=== PATIENT | male | born 1950 | race Caucasian/White ===

== ENCOUNTER → 2016-10-01 | Outpatient (CLI) | payer MEDICARE ==
[2016-10-01 10:36] LABS: HEMATOCRIT 35.1 % (37.9-51.0); HEMOGLOBIN 11.6 g/dL (13.5-17.0); HGB HCT DIFFERENCE -0.3; MEAN CORPUSCULAR HEMOGLOBIN 28.2 pg (27.0-33.4); MEAN CORPUSCULAR VOLUME 86 fl (80-97); RED BLOOD COUNT 4.11 10^6/uL (4.35-5.55); RED CELL DISTRIBUTION WIDTH 13.5 % (11.5-14.0); WHITE BLOOD COUNT 8.3 10^3/uL (4.0-10.5)
[2016-10-01 10:44] LABS: APPEARANCE,URINE CLEAR; BILIRUBIN,URINE NEGATIVE (NEGATIVE); GLUCOSE, URINE NEGATIVE (NEGATIVE); KETONES,URINE NEGATIVE (NEGATIVE); LEUKOCYTE ESTERASE,URINE NEGATIVE (NEGATIVE); NITRITE,URINE NEGATIVE (NEGATIVE); PROTEIN,URINE NEGATIVE (NEGATIVE); URINE SPECIFIC GRAVITY 1.009; UROBILINOGEN,URINE NEGATIVE mg/dL (<2.0)
[2016-10-01 11:12] LABS: ANION GAP 14 (5-19); BLOOD UREA NITROGEN 39 mg/dL (7-20); CALCIUM 9.5 mg/dL (8.4-10.2); CARBON DIOXIDE 28 mmol/L (22-30); CHLORIDE 99 mmol/L (98-107); CREATININE RESULT 2.29 mg/dL (0.52-1.25); GLUCOSE 166 mg/dL (75-110); POTASSIUM 4.7 mmol/L (3.6-5.0); SODIUM 141.4 mmol/L (137-145)
== END ==
LOC: OD 09:59
PROVIDERS: ATTEND Internal Medicine Nephrology
DX: N18.3 Chronic kidney disease, stage 3 (moderate) (principal); E87.5 Hyperkalemia; I12.9 Hypertensive chronic kidney disease with stage 1 through stage 4 chronic kidney disease, or unspecified chronic kidney disease
CPT/HCPCS: 36415; 80048; 81001; 85027

== ENCOUNTER → 2017-03-03 | Outpatient (CLI) | payer MEDICARE ==
[2017-03-03 13:33] LABS: HEMATOCRIT 35.6 % (37.9-51.0); HEMOGLOBIN 12.1 g/dL (13.5-17.0); HGB HCT DIFFERENCE 0.7; MEAN CORPUSCULAR HEMOGLOBIN 29.4 pg (27.0-33.4); MEAN CORPUSCULAR HGB CONC 33.9 g/dL (32.0-36.0); MEAN CORPUSCULAR VOLUME 87 fl (80-97); RED CELL DISTRIBUTION WIDTH 13.4 % (11.5-14.0); WHITE BLOOD COUNT 7.7 10^3/uL (4.0-10.5)
[2017-03-03 13:55] LABS: ANION GAP 11 (5-19); BLOOD UREA NITROGEN 37 mg/dL (7-20); CALCIUM 9.8 mg/dL (8.4-10.2); CARBON DIOXIDE 31 mmol/L (22-30); CHLORIDE 98 mmol/L (98-107); CREATININE RESULT 2.31 mg/dL (0.52-1.25); GLUCOSE 248 mg/dL (75-110); POTASSIUM 4.5 mmol/L (3.6-5.0); SODIUM 140.2 mmol/L (137-145)
== END ==
LOC: OD 12:40
PROVIDERS: ATTEND Internal Medicine Nephrology
DX: I12.9 Hypertensive chronic kidney disease with stage 1 through stage 4 chronic kidney disease, or unspecified chronic kidney disease (principal); N18.3 Chronic kidney disease, stage 3 (moderate); E87.5 Hyperkalemia
CPT/HCPCS: 36415; 80048; 85027

== ENCOUNTER → 2017-04-21 | Outpatient (CLI) | payer MEDICARE ==
[2017-04-21 08:42] LABS: HEMATOCRIT 33.2 % (37.9-51.0); HEMOGLOBIN 11.1 g/dL (13.5-17.0); HGB HCT DIFFERENCE 0.1; MEAN CORPUSCULAR HEMOGLOBIN 29.1 pg (27.0-33.4); MEAN CORPUSCULAR HGB CONC 33.5 g/dL (32.0-36.0); MEAN CORPUSCULAR VOLUME 87 fl (80-97); RED BLOOD COUNT 3.81 10^6/uL (4.35-5.55); RED CELL DISTRIBUTION WIDTH 13.7 % (11.5-14.0)
[2017-04-21 08:44] LABS: APPEARANCE,URINE CLEAR; BILIRUBIN,URINE NEGATIVE (NEGATIVE); GLUCOSE, URINE 150 mg/dL (NEGATIVE); KETONES,URINE NEGATIVE (NEGATIVE); LEUKOCYTE ESTERASE,URINE NEGATIVE (NEGATIVE); NITRITE,URINE NEGATIVE (NEGATIVE); PROTEIN,URINE NEGATIVE (NEGATIVE); URINE SPECIFIC GRAVITY 1.009; UROBILINOGEN,URINE NEGATIVE mg/dL (<2.0)
[2017-04-21 09:09] LABS: ANION GAP 16 (5-19); BLOOD UREA NITROGEN 35 mg/dL (7-20); CALCIUM 9.2 mg/dL (8.4-10.2); CARBON DIOXIDE 29 mmol/L (22-30); CHLORIDE 97 mmol/L (98-107); CREATININE RESULT 2.48 mg/dL (0.52-1.25); GLUCOSE 318 mg/dL (75-110); POTASSIUM 4.4 mmol/L (3.6-5.0); SODIUM 142.4 mmol/L (137-145)
== END ==
LOC: OD 07:31
PROVIDERS: ATTEND Internal Medicine Nephrology
DX: I12.9 Hypertensive chronic kidney disease with stage 1 through stage 4 chronic kidney disease, or unspecified chronic kidney disease (principal); N18.3 Chronic kidney disease, stage 3 (moderate); E87.5 Hyperkalemia
CPT/HCPCS: 36415; 80048; 81001; 85027

== ENCOUNTER 2017-05-31 15:00 | Emergency (ER) | payer MEDICARE ==
--- NOTE | 2017-05-31 15:39 | ER Document Report ---
ED Fall - General Mode of Arrival: Medic Information source: Patient TRAVEL OUTSIDE OF THE [place] IN LAST 30 DAYS: No - HPI Patient complains to provider of: Left neck and back pain Occurred: Just prior to arrival Where: Outdoors Context: Slipped, Fell from standing Associated symptoms: Other - see notes above Location of injury/pain: Back, Neck Prehospital interventions: C-collar <ROSANA BEEBE - Last Filed: 05/31/17 23:20> <SOPHIA ROQUE - Last Filed: 06/01/17 00:21> - General Chief Complaint: Fall Stated Complaint: FALL/ NECK PAIN Time Seen by Provider: 05/31/17 15:07 Notes: 66 year old male with history of CAD, DE, and CVA (on Plavix and 81mg aspirin) presents to the ED via EMS complaining of left mid thoracic back and left neck pain after suffering a fall just prior to arrival. Patient was getting out of his car and had his foot on the curb. He went to turn his foot when he slipped and fell backwards. Patient hit his back, head, and neck on the ground and felt something 'crack' in his neck. Patient is on Plavix and 81mg Aspirin daily. (ROSANA BEEBE) - Related data Allergies/Adverse Reactions: Sulfa (Sulfonamide Antibiotics) Allergy (Intermediate, Verified 05/15/16 11:58) COLD SORES IN MOUTH codeine phosphate [From Tylenol-Codeine] Allergy (Verified 05/15/16 11:58) Hives zolpidem tartrate [From Ambien] Adverse Reaction (Verified 05/15/16 11:58) Hallucinations Past Medical History - General Information source: Patient - Social History Smoking Status: Unknown if Ever Smoked Family History: DM, Hypertension, Other - heart disease - Past Medical History Cardiac Medical History: Reports: Hx Coronary Artery Disease, Hx Heart Attack, Hx Hypercholesterolemia, Hx Hypertension Pulmonary Medical History: Reports: Hx Pneumonia - Aspiration pneumonia Denies: Hx Asthma, Hx Bronchitis, Hx COPD Neurological Medical History: Reports: Hx Cerebrovascular Accident - left sided weakness, Hx Seizures - last sz about 5 years ago,off medication about 1-2 years ago. Endocrine Medical History: Reports: Hx Diabetes Mellitus Type 2 Renal/ Medical History: Reports: Hx Renal Insufficiency GI Medical History: Reports: Hx Gastroesophageal Reflux Disease Musculoskeltal Medical History: Reports Hx Arthritis Psychiatric Medical History: Reports: Hx Depression Past Surgical History: Reports: Hx Cardiac Catheterization, Hx Cardiac Surgery - 2 bypass, Hx Coronary Artery Bypass Graft - x2, Hx Orthopedic Surgery - Back, bilat feet - Immunizations Hx Diphtheria, Pertussis, Tetanus Vaccination: Yes Hx Pneumococcal Vaccination: 03/02/14 <ROSANA BEEBE - Last Filed: 05/31/17 23:20> Review of Systems - Review of Systems Constitutional: No symptoms reported EENT: No symptoms reported Cardiovascular: No symptoms reported Respiratory: No symptoms reported Gastrointestinal: No symptoms reported Genitourinary: No symptoms reported Male Genitourinary: No symptoms reported Musculoskeletal: See HPI, Back pain - left mid thoracic, Neck pain - left Skin: No symptoms reported Hematologic/Lymphatic: No symptoms reported Neurological/Psychological: No symptoms reported -: Yes All other systems reviewed and negative <ROSANA BEEBE - Last Filed: 05/31/17 23:20> Physical Exam - General General appearance: Alert In distress: None - HEENT Head: Normocephalic, Atraumatic Eyes: Normal Extraocular movements intact: Yes Pupils: PERRL - Respiratory Respiratory status: No respiratory distress - Cardiovascular Rhythm: Regular - Abdominal Inspection: Normal - Back Back: Tender - C5-C7 paraspinal tenderness to palpation. L4-L5 tenderness to palpation.. No: Normal - Extremities General upper extremity: Normal inspection, Normal ROM General lower extremity: Normal inspection, Normal ROM - Neurological Neuro grossly intact: Yes Cognition: Normal Orientation: AAOx4 [place] Coma Scale Eye Opening: Spontaneous [place] Coma Scale Verbal: Oriented [place]y Coma Scale Motor: Obeys Commands Korey Coma Scale Total: 15 - Psychological Associated symptoms: Normal affect, Normal mood - Skin Skin Temperature: Warm Skin Moisture: Dry Skin Color: Normal <ROSANA BEEBE - Last Filed: 05/31/17 23:20> Course - Laboratory Result Diagrams: 05/31/17 16:00 05/31/17 16:00 <ROSANA BEEBE - Last Filed: 05/31/17 23:20> - Laboratory Result Diagrams: 05/31/17 16:00 05/31/17 16:00 - Diagnostic Test Radiology reviewed: Reports reviewed <SOPHIA ROQUE - Last Filed: 06/01/17 00:21> - Re-evaluation Re-evalutation: Patient is a 66-year-old male who comes in with a fall. Patient is on Plavix. No evidence for bleed on had or injury to neck or back. Patient is feeling better with medications. He is advised to return if he has any further symptoms such as headache, vomiting, confusion, dizziness, or any other concerns. Of note, creatinine is at baseline for this patient. (SOPHIA ROQUE) - Laboratory Laboratory results interpreted by me: 05/31/17 05/31/17 16:00 16:00 RBC 4.22 L Hgb 12.2 L Hct 36.5 L Seg Neutrophils % 82.0 H Lymphocytes % 8.0 L BUN 36 H Creatinine 2.24 H Est GFR ( Amer) 36 L Est GFR (Non-Af Amer) 29 L Glucose 169 H Discharge <ROSANA BEEBE - Last Filed: 05/31/17 23:20> <SOPHIA ROQUE - Last Filed: 06/01/17 00:21> - Discharge Clinical Impression: Closed head injury Qualifiers: Encounter type: initial encounter Qualified Code(s): S09.90XA - Unspecified injury of head, initial encounter Cervical strain Qualifiers: Encounter type: initial encounter Qualified Code(s): S16.1XXA - Strain of muscle, fascia and tendon at neck level, initial encounter Low back pain Qualifiers: Chronicity: acute Back pain laterality: unspecified Sciatica presence: without sciatica Qualified Code(s): M54.5 - Low back pain Condition: Stable Disposition: HOME, SELF-CARE Instructions: Concussion ([facility]), Head Injury Precautions ([facility]), Low Back Pain ( [facility]), Neck Injury (Cervical Strain) ([facility]) Prescriptions: Carisoprodol [Soma] 350 mg PO DAILYP PRN #10 tablet PRN Reason: Oxycodone HCl/Acetaminophen [Percocet 5-325 mg Tablet] 1 - 2 tab PO Q4H PRN #15 tablet PRN Reason: Referrals: NEVAEH CHAVEZ PA-C [Primary Care Provider] - Follow up in 3-5 days Scribe Attestation: 06/01/17 00:21 I personally performed the services described in the documentation, reviewed and edited the documentation which was dictated to the scribe in my presence, and it accurately records my words and actions. (SOPHIA ROQUE) Scribe Documentation - Scribe Written by Scribe:: Ford Bueno, 05/31/2017 1606 acting as scribe for :: Uriel <ROSANA BEEBE - Last Filed: 05/31/17 23:20>
[2017-05-31 16:13] LABS: ABSOLUTE EOSINOPHILS # (AUTO) 0.1 10^3/uL (0.0-0.6); ABSOLUTE LYMPHOCYTES (AUTO) 0.8 10^3/uL (0.5-4.7); ABSOLUTE MONOCYTES (AUTO) 0.8 10^3/uL (0.1-1.4); ABSOLUTE NEUT (AUTO) 7.8 10^3/uL (1.7-8.2); BASOPHILS % (AUTO) 0.4 % (0-2); EOSINOPHILS % (AUTO) 1.2 % (0-6); HEMATOCRIT 36.5 % (37.9-51.0); HEMOGLOBIN 12.2 g/dL (13.5-17.0); MEAN CORPUSCULAR HGB CONC 33.5 g/dL (32.0-36.0); MEAN CORPUSCULAR VOLUME 87 fl (80-97); MONOCYTES % (AUTO) 8.4 % (3-13); PLATELET COUNT 277 10^3/uL (150-450); RED BLOOD COUNT 4.22 10^6/uL (4.35-5.55); RED CELL DISTRIBUTION WIDTH 13.3 % (11.5-14.0); TOTAL CELLS COUNTED % (AUTO) 100 %; WHITE BLOOD COUNT 9.5 10^3/uL (4.0-10.5)
[2017-05-31 16:20] LABS: PROTHROMBIN TIME 12.8 SEC (11.4-15.4)
[2017-05-31 16:21] LABS: PARTIAL THROMBOPLASTIN TIME 32.8 SEC (23.5-35.8)
[2017-05-31 16:29] LABS: ANION GAP 13 (5-19); BLOOD UREA NITROGEN 36 mg/dL (7-20); CALCIUM 10.1 mg/dL (8.4-10.2); CARBON DIOXIDE 30 mmol/L (22-30); CHLORIDE 99 mmol/L (98-107); GLUCOSE 169 mg/dL (75-110); POTASSIUM 4.5 mmol/L (3.6-5.0); SODIUM 141.6 mmol/L (137-145)
--- NOTE | 2017-05-31 16:43 | RADIOLOGY REPORT (SQ) ---
EXAM DESCRIPTION: CT HEAD WITHOUT COMPLETED DATE/TIME: 05/31/2017 4:19 pm REASON FOR STUDY: fall, pain, hit head, on plavix COMPARISON: 05/21/2016 TECHNIQUE: Axial images acquired through the brain without intravenous contrast. Images reviewed wi th bone, brain and subdural windows. Images stored on PACS. All CT scanners at this facility use dose modulation, iterative reconstruction, and/or weight based d osing when appropriate to reduce radiation dose to as low as reasonably achievable (ALARA). [facility]: Dose Right [facility]: CareDose [facility]: Dose Right [facility]: Teradose 4D [facility]: [id number] RADIATION DOSE: CT Rad equipment meets quality standard of care and radiation dose reduction techniq ues were employed. CTDIvol: 64.6 mGy. DLP: 1163 mGy-cm. mGy. LIMITATIONS: None. FINDINGS: VENTRICLES: Mildly prominent CEREBRUM: No masses. No hemorrhage. No midline shift. Re- demonstration of chronic microvascular i schemic changes and bilateral basal ganglia lacunar infarcts. No evidence for acute infarction. CEREBELLUM: No masses. No hemorrhage. No alteration of density. No evidence for acute infarction. EXTRAAXIAL SPACES: Mild age-related involutional change. No fluid collections. No masses. ORBITS AND GLOBE: No intra- or extraconal masses. Normal contour of globe without masses. CALVARIUM: No fracture. PARANASAL SINUSES: No fluid or mucosal thickening. SOFT TISSUES: No mass or hematoma. OTHER: No other significant finding. IMPRESSION: Stable CT appearance of the brain, again demonstrating microvascular ischemic change and lacunar infarcts. No evidence of acute calvarial injury or intracranial hemorrhage. EVIDENCE OF ACUTE STROKE: NO. TECHNICAL DOCUMENTATION: JOB ID: [id number] Quality ID # [id number]: Final reports with documentation of one or more dose reduction techniques (e.g., Au tomated exposure control, adjustment of the mA and/or kV according to patient size, use of iterative reconstruction technique) 2010 [employer] All Rights Reserved
--- NOTE | 2017-05-31 16:45 | RADIOLOGY REPORT (SQ) ---
EXAM DESCRIPTION: CT CERVICAL SPINE WITHOUT COMPLETED DATE/TIME: 05/31/2017 4:19 pm REASON FOR STUDY: fall, pain COMPARISON: 07/08/2014 TECHNIQUE: Axial images acquired through the cervical spine without intravenous contrast. Images re viewed with lung, soft tissue and bone windows. Reconstructed coronal and sagittal MPR images review ed. Images stored on PACS. All CT scanners at this facility use dose modulation, iterative reconstruction, and/or weight based d osing when appropriate to reduce radiation dose to as low as reasonably achievable (ALARA). [facility]: Dose Right [facility]: CareDose [facility]: Dose Right [facility]: Teradose 4D [facility]: Smart [employer] RADIATION DOSE: CT Rad equipment meets quality standard of care and radiation dose reduction techniq ues were employed. CTDIvol: 20.3 mGy. DLP: 404 mGy-cm. mGy. LIMITATIONS: None. FINDINGS: ALIGNMENT: Anatomic. MINERALIZATION: Normal. VERTEBRAL BODIES: No fractures or dislocation. DISCS: Multilevel disc space narrowing with osteophytes. FACETS, LATERAL MASSES, POSTERIOR ELEMENTS: Facet arthropathy. No fractures. No dislocation. No ac [place] findings. HARDWARE: None in the spine. VISUALIZED RIBS: No fractures. LUNG APICES AND SOFT TISSUES: Re- demonstration of biapical pleural/ parenchymal scarring. OTHER: No other significant finding. IMPRESSION: CHRONIC DEGENERATIVE CHANGES. NO ACUTE FINDINGS. TECHNICAL DOCUMENTATION: JOB ID: [id number] Quality ID # [id number]: Final reports with documentation of one or more dose reduction techniques (e.g., Au tomated exposure control, adjustment of the mA and/or kV according to patient size, use of iterative reconstruction technique) 2010 [employer]- All Rights Reserved
--- NOTE | 2017-05-31 16:49 | RADIOLOGY REPORT (SQ) ---
EXAM DESCRIPTION: CT ABD/PELVIS NO ORAL OR IV COMPLETED DATE/TIME: 05/31/2017 4:19 pm REASON FOR STUDY: fall, L back , chest wall pain COMPARISON: None. TECHNIQUE: CT scan of the abdomen and pelvis performed without intravenous or oral contrast. Images reviewed with lung, soft tissue, and bone windows. Reconstructed coronal and sagittal MPR images revi ewed. All images stored on PACS. All CT scanners at this facility use dose modulation, iterative reconstruction, and/or weight based d osing when appropriate to reduce radiation dose to as low as reasonably achievable (ALARA). [facility]: Dose Right [facility]: CareDose [facility]: Dose Right [facility]: Teradose 4D [facility]: [employer] RADIATION DOSE: CT Rad equipment meets quality standard of care and radiation dose reduction techniq ues were employed. CTDIvol: 14.4 mGy. DLP: 779 mGy-cm.mGy. LIMITATIONS: None. FINDINGS: LOWER CHEST: Increased interstitial markings may represent scarring or fibrosis. NON-CONTRASTED LIVER, SPLEEN, ADRENALS: Evaluation limited by lack of IV contrast. No identified sign ificant masses. PANCREAS: No masses. No peripancreatic inflammatory changes. GALLBLADDER: No identified stones by CT criteria. No inflammatory changes to suggest cholecystitis. RIGHT KIDNEY AND URETER: No suspicious masses. Assessment limited by lack of IV contrast. No signif icant calcifications. No hydronephrosis or hydroureter. LEFT KIDNEY AND URETER: No suspicious masses. Assessment limited by lack of IV contrast. No signifi cant calcifications. No hydronephrosis or hydroureter. AORTA AND RETROPERITONEUM: No aneurysm. No retroperitoneal masses or adenopathy. BOWEL AND PERITONEAL CAVITY: No obvious masses or inflammatory changes. No free fluid. APPENDIX: Not visualized. PELVIS, BLADDER, AND ABDOMINAL WALL:No abnormal masses. No free fluid. Bladder normal. Fat containin g inguinal hernia on the right. BONES: Multilevel spondylotic change without fracture. Degenerative changes are seen of the hips. OTHER: No other significant finding. IMPRESSION: No evidence of acute intra-abdominal or osseous injury. COMMENT: Quality ID # 436: Final reports with documentation of one or more dose reduction techniques (e.g., Automated exposure control, adjustment of the mA and/or kV according to patient size, use of iterative reconstruction technique) TECHNICAL DOCUMENTATION: JOB ID: [id number]- All Rights Reserved
[2017-05-31] MEDS ORDERED: FENTANYL CITRATE INJ/PF 100 MCG/2 ML AMPUL IV ONE (16:50)
[2017-05-31] MEDS ORDERED: ONDANSETRON HCL INJ/PF 4 MG/2 ML SDV IV ONE (16:50)
--- NOTE | 2017-05-31 17:28 | RADIOLOGY REPORT (SQ) ---
EXAM DESCRIPTION: CHEST PA/LAT COMPLETED DATE/TIME: 05/31/2017 5:03 pm REASON FOR STUDY: fall, pain COMPARISON: 05/15/2016 EXAM PARAMETERS: NUMBER OF VIEWS: two views TECHNIQUE: Digital Frontal and Lateral radiographic views of the chest acquired. RADIATION DOSE: NA LIMITATIONS: none FINDINGS: LUNGS AND PLEURA: Re- demonstration of right apical opacity and pleural thickening, not si gnificantly changed from 05/15/2016 radiographs. No new focal consolidation. No pleural effusion. No pneumothorax. MEDIASTINUM AND HILAR STRUCTURES: No masses or contour abnormalities. HEART AND VASCULAR STRUCTURES: Heart normal size. No evidence for failure. BONES: No acute findings. HARDWARE: Sternotomy wires are present. OTHER: No other significant finding. IMPRESSION: Stable radiographic appearance of the chest, again demonstrating right apical pleural an d parenchymal changes. No acute findings. TECHNICAL DOCUMENTATION: JOB ID: [id number] [employer]- All Rights Reserved
[2017-05-31] MEDS ORDERED: HYDROCODONE/ACETAMINOPHEN 5-325 MG (6 TAB/ER DISP) PO PRN (17:57)
[2017-05-31] MEDS ORDERED: ONDANSETRON ODT 4 MG TAB (6 TAB/ER DISP) PO PRN (17:58)
== END 2017-05-31 18:40 | disposition home or self-care (01) ==
LOC: ER 15:00
DX: S16.1XXA Strain of muscle, fascia and tendon at neck level, initial encounter (principal); S09.90XA Unspecified injury of head, initial encounter; M54.2 Cervicalgia; M54.6 Pain in thoracic spine; M54.5 Low back pain; W10.1XXA Fall (on)(from) sidewalk curb, initial encounter; Y93.89 Activity, other specified; E11.9 Type 2 diabetes mellitus without complications; I10 Essential (primary) hypertension; I25.10 Atherosclerotic heart disease of native coronary artery without angina pectoris; I25.2 Old myocardial infarction; Z86.73 Personal history of transient ischemic attack (TIA), and cerebral infarction without residual deficits; Z79.02 Long term (current) use of antithrombotics/antiplatelets; Z79.82 Long term (current) use of aspirin; Z88.5 Allergy status to narcotic agent; Z88.2 Allergy status to sulfonamides; Z95.1 Presence of aortocoronary bypass graft
CPT/HCPCS: 99284; 96374; 96375; 36415; 85025; 85610; 85730; 80048; 71020; 70450; 72125; 74176; J3010; J2405

== ENCOUNTER 2017-06-17 22:20 | Inpatient (IN) | payer MEDICARE ==
[2017-06-18 00:09] LABS: ABSOLUTE BASOPHILS # (AUTO) 0.1 10^3/uL (0.0-0.2); ABSOLUTE EOSINOPHILS # (AUTO) 0.1 10^3/uL (0.0-0.6); ABSOLUTE MONOCYTES (AUTO) 1.2 10^3/uL (0.1-1.4); ABSOLUTE NEUT (AUTO) 12.2 10^3/uL (1.7-8.2); BASOPHILS % (AUTO) 0.4 % (0-2); EOSINOPHILS % (AUTO) 0.4 % (0-6); HEMATOCRIT 33.4 % (37.9-51.0); LYMPHOCYTES % (AUTO) 6.9 % (13-45); MEAN CORPUSCULAR HEMOGLOBIN 28.8 pg (27.0-33.4); MEAN CORPUSCULAR VOLUME 87 fl (80-97); PLATELET COUNT 253 10^3/uL (150-450); RED BLOOD COUNT 3.83 10^6/uL (4.35-5.55); RED CELL DISTRIBUTION WIDTH 13.2 % (11.5-14.0); SEGMENTED NEUTROPHILS % (AUTO) 84.3 % (42-78); TOTAL CELLS COUNTED % (AUTO) 100 %; WHITE BLOOD COUNT 14.4 10^3/uL (4.0-10.5)
[2017-06-18 01:28] LABS: ALANINE AMINOTRANSFERASE 19 U/L (21-72); ALBUMIN 4.6 g/dL (3.5-5.0); ALKALINE PHOSPHATASE 65 U/L (38-126); ANION GAP 14 (5-19); ASPARTATE AMINO TRANSFERASE 29 U/L (17-59); BILIRUBIN,DIRECT 0.4 mg/dL (0.0-0.4); BILIRUBIN,TOTAL 0.5 mg/dL (0.2-1.3); BLOOD UREA NITROGEN 46 mg/dL (7-20); CALCIUM 9.7 mg/dL (8.4-10.2); CARBON DIOXIDE 27 mmol/L (22-30); CHLORIDE 101 mmol/L (98-107); GLUCOSE 117 mg/dL (75-110); MAGNESIUM 2.1 mg/dL (1.6-2.3); POTASSIUM 3.8 mmol/L (3.6-5.0); SODIUM 142.1 mmol/L (137-145); TOTAL PROTEIN 7.8 g/dL (6.3-8.2)
[2017-06-18 01:33] LABS: ALCOHOL < 10 mg/dL (NONE DETECTED)
[2017-06-18 01:45] LABS: VENOUS BLOOD BASE EXCESS 2.6 mmol/L; VENOUS BLOOD PCO2 60.9 mmHg (35-63); VENOUS BLOOD PH 7.31 (7.30-7.42)
--- NOTE | 2017-06-18 01:54 | RADIOLOGY REPORT (SQ) ---
EXAM DESCRIPTION: CHEST SINGLE VIEW CLINICAL HISTORY: 66 years, Male, altered mental status, difficulty breathing COMPARISON: 05/31/2017. 05/15/2016, report only. NUMBER OF VIEWS: One LIMITATIONS: None. FINDINGS: Moderate lung volume, small stable patchy opacity of the right upper lobe, normal cardiac silhouette, median sternotomy. IMPRESSION: Stable patchiness of the right upper lobe. 2011 [facility] [employer]- All Rights Reserved
--- NOTE | 2017-06-18 03:06 | RADIOLOGY REPORT (SQ) ---
EXAM DESCRIPTION: CT HEAD WITHOUT CLINICAL HISTORY: 66 years Male, altered mental status on Plavix COMPARISON: 05/31/2017. TECHNIQUE: No contrast. This exam was performed according to our departmental dose-optimization program, which includes automated exposure control, adjustment of the mA and/or kV according to patient size and/or use of iterative reconstruction technique. FINDINGS: Mild white matter microangiopathy, stable lacunar infarcts in bilateral basal ganglia atherosclerosis, 1.2 cm left maxillary retention cyst/mucocele, small strandy mucus of the left sphenoid sinus, and otherwise unremarkable extra-axial structures. IMPRESSION: No acute findings.
[2017-06-18] MEDS ORDERED: AMPICILLIN SOD/SULBACTAM 3 GM VIAL IV ONE (03:18)
[2017-06-18] MEDS ORDERED: NORMAL SALINE 500 ML IV ONE (03:20)
[2017-06-18] MEDS ORDERED: IPRATROPIUM/ALBUTEROL 0.5-2.5 MG/3 ML AMPUL NEB PRN (03:35)
[2017-06-18] MEDS ORDERED: INSULIN LISPRO 100 UNIT/ML 3 ML VIAL SUBCUT PRN (03:35)
[2017-06-18] MEDS ORDERED: DEXTROSE 50%-WATER 25 GM/50 ML DISP.SYRIN IV PRN ×2 (03:35)
[2017-06-18] MEDS ORDERED: GLUCAGON,HUMAN RECOMB 1 MG INJ IM PRN (03:35)
[2017-06-18] MEDS ORDERED: DEXTROSE 40% GEL 15 GM TUBE PO PRN ×2 (03:35)
--- NOTE | 2017-06-18 03:38 | ER Document Report ---
ED General - General Chief Complaint: Altered Mental Status Stated Complaint: ALTERED MENTAL STATUS Time Seen by Provider: 06/18/17 00:43 TRAVEL OUTSIDE OF THE [place] IN LAST 30 DAYS: No - Related Data Allergies/Adverse Reactions: Sulfa (Sulfonamide Antibiotics) Allergy (Intermediate, Verified 05/15/16 11:58) COLD SORES IN MOUTH codeine phosphate [From Tylenol-Codeine] Allergy (Verified 05/15/16 11:58) Hives zolpidem tartrate [From Ambien] Adverse Reaction (Verified 05/15/16 11:58) Hallucinations Past Medical History - Social History Smoking Status: Unknown if Ever Smoked Frequency of alcohol use: None Drug Abuse: None Family History: DM, Hypertension, Other - heart disease - Past Medical History Cardiac Medical History: Reports: Hx Coronary Artery Disease, Hx Heart Attack, Hx Hypercholesterolemia, Hx Hypertension Pulmonary Medical History: Reports: Hx Pneumonia - Aspiration pneumonia Denies: Hx Asthma, Hx Bronchitis, Hx COPD Neurological Medical History: Reports: Hx Cerebrovascular Accident - left sided weakness, Hx Seizures - last sz about 5 years ago,off medication about 1-2 years ago. Endocrine Medical History: Reports: Hx Diabetes Mellitus Type 2 Renal/ Medical History: Reports: Hx Renal Insufficiency. Denies: Hx Peritoneal Dialysis GI Medical History: Reports: Hx Gastroesophageal Reflux Disease Musculoskeltal Medical History: Reports Hx Arthritis Psychiatric Medical History: Reports: Hx Depression Past Surgical History: Reports: Hx Cardiac Catheterization, Hx Cardiac Surgery - 2 bypass, Hx Coronary Artery Bypass Graft - x2, Hx Orthopedic Surgery - Back, bilat feet - Immunizations Hx Diphtheria, Pertussis, Tetanus Vaccination: Yes Hx Pneumococcal Vaccination: 03/02/14 Physical Exam - Vital signs Vitals: Temp Pulse Resp BP Pulse Ox 99.0 F 84 22 H 103/55 L 90 L 06/17/17 22:52 06/17/17 22:52 06/17/17 22:52 06/17/17 22:52 06/17/17 22:52 Course - Re-evaluation Re-evalutation: 06/18/17 03:37 Patient's workup shows stable patchy infiltrative appearance to the right side. I suspect he probably is developing pneumonia like he has in the past and that his clinical presentation is very similar to what he has had in the past with pneumonia and also he is hypoxic on room air and his lung silva sound consistent with pneumonia. I spoke with the hospitalist, Dr. العراقي, who agrees to admit the patient. Dictation of this chart was performed using voice recognition software; therefore, there may be some unintended grammatical errors. - Vital Signs Vital signs: Temp Pulse Resp BP Pulse Ox 99.0 F 84 11 L 115/69 96 06/17/17 22:52 06/17/17 22:52 06/18/17 01:01 06/18/17 01:00 06/18/17 01:01 - Laboratory Result Diagrams: 06/17/17 23:40 06/18/17 00:56 Laboratory results interpreted by me: 06/17/17 06/18/17 06/18/17 23:40 00:56 01:30 WBC 14.4 H RBC 3.83 L Hgb 11.0 L Hct 33.4 L Seg Neutrophils % 84.3 H Lymphocytes % 6.9 L Absolute Neutrophils 12.2 H BUN 46 H Creatinine 3.28 H Est GFR ( Amer) 23 L Est GFR (Non-Af Amer) 19 L Glucose 117 H ALT 19 L Ammonia < 8.7 L Discharge - Discharge Clinical Impression: Hypoxemia Pneumonia Qualifiers: Pneumonia type: due to unspecified organism Laterality: right Lung location: unspecified part of lung Qualified Code(s): J18.9 - Pneumonia, unspecified organism Condition: Serious Disposition: ADMITTED OBSERVATION Admitting Provider: Hospitalist Unit Admitted: Telemetry Referrals: NEVAEH CHAVEZ PA-C [Primary Care Provider] - Follow up as needed
[2017-06-18] MEDS ORDERED: HYDRALAZINE HCL INJ/PF 20 MG/1 ML SDV IV PRN (03:39)
[2017-06-18] MEDS ORDERED: ACETAMINOPHEN 650 MG SUPP.RECT PR PRN (03:40)
[2017-06-18] MEDS ORDERED: NALOXONE HCL INJ/PF 0.4 MG/1 ML SDV IV PRN (03:56)
[2017-06-18] MEDS ORDERED: FLUTICASONE NASAL SPRAY 50 MCG/SPRY 120 SPRAY/16 GM NASL ONE (04:00)
[2017-06-18] MEDS: NORMAL SALINE 1000 ML 1,000 ML IV SCH ×3 (04:26→17:56)
[2017-06-18] MEDS ORDERED: FLUTICASONE NASAL SPRAY 50 MCG/SPRY 120 SPRAY/16 GM ONE (04:39)
--- NOTE | 2017-06-18 04:56 | PDOC H&P ---
History of Present Illness Admission Date/PCP: NEVAEH CHAVEZ PA-C Patient complains of: Altered mental status History of Present Illness: MACI RODRIGUEZ SR is a 66 year old male with a past medical history of CVA with left-sided weakness, gait instability, CKD 3, opiate dependent chronic pain , anxiety depression, diabetes and esophageal cancer status post chemotherapy radiation 5 years ago with recurrent aspiration pneumonia, declining PEG tube placement. Patient is somnolent but arousable and uncooperative with history and exam, he is otherwise in no acute distress. Patient is unable or unwilling to provide history and is obtained by the record. Patient has several presentations with altered mental status in the setting of aspiration and polypharmacy. In the emergency room is found to have leukocytosis, a right upper lobe infiltrate consistent with previous image, acute on chronic renal failure and mental status described. He is referred to the hospitalist for observation. Past Medical History Cardiac Medical History: Reports: Coronary Artery Disease, Myocardial Infarction , Hyperlipidema, Hypertension Pulmonary Medical History: Reports: Pneumonia - Aspiration pneumonia Denies: Asthma, Bronchitis, Chronic Obstructive Pulmonary Disease (COPD) Neurological Medical History: Reports: Seizures - last sz about 5 years ago,off medication about 1-2 years ago. Endocrine Medical History: Reports: Diabetes Mellitus Type 2 GI Medical History: Reports: Gastroesophageal Reflux Disease Musculoskeltal Medical History: Reports: Arthritis Psychiatric Medical History: Reports: Depression, General Anxiety Disorder Hematology: Reports: Anemia Past Surgical History Past Surgical History: Reports: Cardiac Catheterization, Coronary Artery Bypass Graft - x2, Orthopedic Surgery - Back, bilat feet Social History Information Source: [facility] Records Lives with: Family Smoking Status: Unknown if Ever Smoked Frequency of Alcohol Use: Occasional Hx Recreational Drug Use: No Drugs: None Hx Prescription Drug Abuse: No - Advance Directive Resuscitation Status: Do Not Resuscitate Family History Family History: DM, Hypertension, Other - heart disease Parental Family History Reviewed: Yes Children Family History Reviewed: Yes Sibling(s) Family History Reviewed.: Yes Medication/Allergy Home Medications: Buspirone HCl 30 mg PO TID 11/22/15 Clomiphene Citrate [Serophene 50 mg Tablet] 25 mg PO DAILY 11/22/15 Furosemide 20 mg PO QAM 11/22/15 Gabapentin 600 mg PO QID 11/22/15 Pantoprazole Sodium 40 mg PO DAILY 11/22/15 Pravastatin Sodium 40 mg PO QHS 11/22/15 Sildenafil Citrate [Viagra] 50 mg PO DAILY PRN 11/22/15 Vitamin B Complex [B Complex] 1 each PO DAILY 11/22/15 Canagliflozin [Invokana] 1 tab PO DAILY 02/10/16 Citalopram Hydrobromide [Celexa 10 mg Tablet] 1 tab PO DAILY 02/10/16 Clopidogrel Bisulfate [Plavix 75 mg Tablet] 1 tab PO DAILY 02/10/16 Cyclobenzaprine HCl [Flexeril 10 mg Tablet] 1 tab PO TID PRN 02/10/16 Diphenoxylate HCl/Atropine [Lomotil 2.5-0.025 mg Tablet] 1 tab PO DAILY PRN 03/17 Glyburide [Diabeta 2.5 mg Tablet] 2 tab PO DAILY 02/10/16 Metoprolol Succinate 1 tab PO DAILY 02/10/16 Oxycodone HCl [Oxycontin] 1 tab PO BID 02/10/16 Tamsulosin HCl [Flomax 0.4 mg Cap.sr] 0.4 mg PO BID 02/10/16 Aspirin [Aspirin EC] 81 mg PO DAILY 02/11/16 Ferrous Sulfate 325 mg PO DAILY 02/11/16 Cefuroxime Axetil [Ceftin 500 mg Tablet] 500 mg PO BID #10 tablet 02/15/16 Carisoprodol [Soma] 350 mg PO DAILYP PRN #10 tablet 05/31/17 Oxycodone HCl/Acetaminophen [Percocet 5-325 mg Tablet] 1 - 2 tab PO Q4H PRN #15 tablet 05/31/17 Allergies/Adverse Reactions: Sulfa (Sulfonamide Antibiotics) Allergy (Intermediate, Verified 05/15/16 11:58) COLD SORES IN MOUTH codeine phosphate [From Tylenol-Codeine] Allergy (Verified 05/15/16 11:58) Hives zolpidem tartrate [From Ambien] Adverse Reaction (Verified 05/15/16 11:58) Hallucinations Review of Systems ROS unobtainable: Due to mental status Physical Exam Vital Signs: Temp Pulse Resp BP Pulse Ox 97.5 F 84 10 L 112/75 97 06/18/17 04:00 06/17/17 22:52 06/18/17 04:01 06/18/17 04:01 06/18/17 04:00 Intake & Output 06/16/17 06/17/17 06/18/17 11:59 11:59 11:59 Weight 75.6 kg General appearance: PRESENT: no acute distress, well-developed, well-nourished Head exam: PRESENT: atraumatic, normocephalic Eye exam: PRESENT: conjunctiva pink, EOMI, PERRLA. ABSENT: scleral icterus Ear exam: PRESENT: normal external ear exam Mouth exam: PRESENT: moist, tongue midline Neck exam: ABSENT: carotid bruit, JVD, lymphadenopathy, thyromegaly Respiratory exam: PRESENT: clear to auscultation bette, crackles. ABSENT: accessory muscle use, decreased breath sounds, prolonged expiratory phas, rales , retraction, rhonchi, unlabored, wheezes Cardiovascular exam: PRESENT: RRR. ABSENT: diastolic murmur, rubs, systolic murmur Pulses: PRESENT: normal dorsalis pedis pul Vascular exam: PRESENT: normal capillary refill GI/Abdominal exam: PRESENT: normal bowel sounds, soft. ABSENT: distended, guarding, mass, organolmegaly, rebound, tenderness Rectal exam: PRESENT: deferred Extremities exam: PRESENT: full ROM. ABSENT: calf tenderness, clubbing, pedal edema Neurological exam: PRESENT: alert, awake, oriented to person, oriented to place , oriented to time, oriented to situation, CN II-XII grossly intact. ABSENT: motor sensory deficit Psychiatric exam: PRESENT: appropriate affect, normal mood. ABSENT: homicidal ideation, suicidal ideation Skin exam: PRESENT: dry, intact, warm. ABSENT: cyanosis, rash Results Laboratory Results: 06/17/17 23:40 06/18/17 00:56 06/17/17 06/17/17 06/18/17 23:40 23:40 00:56 WBC 14.4 H RBC 3.83 L Hgb 11.0 L Hct 33.4 L MCV 87 MCH 28.8 MCHC 33.0 RDW 13.2 Plt Count 253 Seg Neutrophils % 84.3 H Lymphocytes % 6.9 L Monocytes % 8.0 Eosinophils % 0.4 Basophils % 0.4 Absolute Neutrophils 12.2 H Absolute Lymphocytes 1.0 Absolute Monocytes 1.2 Absolute Eosinophils 0.1 Absolute Basophils 0.1 VBG pH VBG pCO2 VBG HCO3 VBG Base Excess Sodium Cancelled 142.1 Potassium Cancelled 3.8 Chloride Cancelled 101 Carbon Dioxide Cancelled 27 Anion Gap Cancelled 14 BUN Cancelled 46 H Creatinine Cancelled 3.28 H Est GFR ( Amer) Cancelled 23 L Est GFR (Non-Af Amer) Cancelled 19 L Glucose Cancelled 117 H Calcium Cancelled 9.7 Magnesium Cancelled 2.1 Total Bilirubin Cancelled 0.5 AST Cancelled 29 ALT Cancelled 19 L Alkaline Phosphatase Cancelled 65 Ammonia Total Protein Cancelled 7.8 Albumin Cancelled 4.6 06/18/17 06/18/17 01:30 01:30 WBC RBC Hgb Hct MCV MCH MCHC RDW Plt Count Seg Neutrophils % Lymphocytes % Monocytes % Eosinophils % Basophils % Absolute Neutrophils Absolute Lymphocytes Absolute Monocytes Absolute Eosinophils Absolute Basophils VBG pH 7.31 VBG pCO2 60.9 VBG HCO3 30.0 VBG Base Excess 2.6 Sodium Potassium Chloride Carbon Dioxide Anion Gap BUN Creatinine Est GFR ( Amer) Est GFR (Non-Af Amer) Glucose Calcium Magnesium Total Bilirubin AST ALT Alkaline Phosphatase Ammonia < 8.7 L Total Protein Albumin Impressions: Chest X-Ray 06/18/17 00:53 IMPRESSION: Stable patchiness of the right upper lobe. 2010 [employer]- All Rights Reserved Head CT 06/18/17 02:29 IMPRESSION: No acute findings. Assessment & Plan - Diagnosis (1) Encephalopathy acute Is this a current diagnosis for this admission?: Yes Plan: Likely multifactorial secondary to pneumonia and medications. No evidence for hypoxia or hypercapnia, Narcan as needed, consider UDS (2) Pneumonia Qualifiers: Pneumonia type: due to unspecified organism Laterality: right Lung location: unspecified part of lung Qualified Code(s): J18.9 - Pneumonia, unspecified organism Is this a current diagnosis for this admission?: Yes Plan: Recurrent aspiration secondary to head and neck cancer complicated by refusal of PEG placement. Speech therapy consult, clindamycin albuterol and Atrovent. (3) TILA (acute kidney injury) Is this a current diagnosis for this admission?: Yes Plan: Avoid nephrotoxic meds and doses, IV fluid challenge. Follow-up chemistry - Time Time Spent: 30 to 50 Minutes
[2017-06-18 05:29] LABS: ABSOLUTE EOSINOPHILS # (AUTO) 0.1 10^3/uL (0.0-0.6); ABSOLUTE LYMPHOCYTES (AUTO) 1.2 10^3/uL (0.5-4.7); ABSOLUTE MONOCYTES (AUTO) 1.1 10^3/uL (0.1-1.4); ABSOLUTE NEUT (AUTO) 9.1 10^3/uL (1.7-8.2); BASOPHILS % (AUTO) 0.3 % (0-2); EOSINOPHILS % (AUTO) 1.2 % (0-6); HEMATOCRIT 29.7 % (37.9-51.0); HEMOGLOBIN 9.9 g/dL (13.5-17.0); LYMPHOCYTES % (AUTO) 10.7 % (13-45); MEAN CORPUSCULAR HEMOGLOBIN 29.1 pg (27.0-33.4); MEAN CORPUSCULAR HGB CONC 33.3 g/dL (32.0-36.0); MEAN CORPUSCULAR VOLUME 88 fl (80-97); MONOCYTES % (AUTO) 9.6 % (3-13); PLATELET COUNT 206 10^3/uL (150-450); RED CELL DISTRIBUTION WIDTH 13.2 % (11.5-14.0); SEGMENTED NEUTROPHILS % (AUTO) 78.2 % (42-78); TOTAL CELLS COUNTED % (AUTO) 100 %; WHITE BLOOD COUNT 11.6 10^3/uL (4.0-10.5)
[2017-06-18] MEDS: CLINDAMYCIN 600 MG/D5W RTU 600 MG/50 ML RTUPB IV SCH ×3 (05:44→22:34)
[2017-06-18] MEDS: HEPARIN SOD (PORCINE) 5,000 UNIT/ML 1 ML SYRINGE SUBCUT SCH ×3 (05:48→22:34)
[2017-06-18 05:54] LABS: ANION GAP 11 (5-19); BLOOD UREA NITROGEN 46 mg/dL (7-20); CALCIUM 8.7 mg/dL (8.4-10.2); CARBON DIOXIDE 28 mmol/L (22-30); CHLORIDE 104 mmol/L (98-107); GLUCOSE 69 mg/dL (75-110); POTASSIUM 3.7 mmol/L (3.6-5.0); SODIUM 143.2 mmol/L (137-145)
[2017-06-18] MEDS: IPRATROPIUM/ALBUTEROL 0.5-2.5 MG/3 ML AMPUL NEB SCH ×3 (09:37→19:32)
[2017-06-18] MEDS: FLUTICASONE NASAL SPRAY 50 MCG/SPRY 120 SPRAY/16 GM NASL SCH ×2 (09:48→22:35)
[2017-06-18] MEDS: GABAPENTIN 100 MG CAPSULE PO SCH ×2 (16:11→22:34)
[2017-06-18] MEDS: OXYCODONE HCL IR 5 MG TABLET PO PRN ×2 (16:11→22:30)
--- NOTE | 2017-06-18 17:28 | PDOC PROGRESS REPORT ---
Subjective Progress Note for:: 06/18/17 Subjective:: 66-year-old gentleman with past medical history of Prior CVA with left-sided weakness Chronic kidney disease stage III Gait instability Chronic pain with opiate dependence Anxiety Depression Diabetes Esophageal cancer status post chemotherapy and radiation 5 years ago with recurrent aspiration pneumonia Declined PEG tube placement in the past He presented to the emergency room on June 17 with confusion leukocytosis and right upper lobe infiltrate on chest x-ray consistent with pneumonia. He was also found to have acute on chronic renal failure. The patient was started on IV fluids aspiration precautions and antibiotics. Reason For Visit: ASP PNEUMONIA,DIABETES,CHRONIC PAIN,AMS Physical Exam Vital Signs: Temp Pulse Resp BP Pulse Ox 97.5 F 84 11 L 96/66 L 96 06/18/17 04:00 06/17/17 22:52 06/18/17 08:01 06/18/17 08:01 06/18/17 08:01 Additional comments: Middle-aged gentleman lying in bed not in acute distress Speech is slightly slurred which is chronic for him since he has a history of tongue cancer status post chemo and radiation Trachea is midline Lungs: He has decreased breath sounds bilateral bases I do not hear any wheezing or crackles no use of accessory muscles Cardiac: S1-S2 regular no murmurs heard no peripheral edema no cyanosis no calf tenderness Abdomen: Soft nontender nondistended bowel sounds normal, rectal exam deferred Genitourinary: Deferred Neurologic: He is awake and alert he is oriented 3. He is somnolent but does follow commands and answers questions appropriately No facial droop. No tremor. Results Laboratory Results: 06/18/17 05:15 06/18/17 05:15 06/18/17 06/18/17 05:15 05:15 WBC 11.6 H RBC 3.40 L Hgb 9.9 L Hct 29.7 L MCV 88 MCH 29.1 MCHC 33.3 RDW 13.2 Plt Count 206 Seg Neutrophils % 78.2 H Lymphocytes % 10.7 L Monocytes % 9.6 Eosinophils % 1.2 Basophils % 0.3 Absolute Neutrophils 9.1 H Absolute Lymphocytes 1.2 Absolute Monocytes 1.1 Absolute Eosinophils 0.1 Absolute Basophils 0.0 Sodium 143.2 Potassium 3.7 Chloride 104 Carbon Dioxide 28 Anion Gap 11 BUN 46 H Creatinine 3.02 H Est GFR ( Amer) 25 L Est GFR (Non-Af Amer) 21 L Glucose 69 L Calcium 8.7 Impressions: Chest X-Ray 06/18/17 00:53 IMPRESSION: Stable patchiness of the right upper lobe. 2010 [employer]- All Rights Reserved Head CT 06/18/17 02:29 IMPRESSION: No acute findings. Assessment & Plan - Diagnosis (1) Metabolic encephalopathy Is this a current diagnosis for this admission?: Yes Plan: Due to pneumonia, hypoxia and ARF. (2) Aspiration pneumonia Is this a current diagnosis for this admission?: Yes Plan: Day 1 of Clindamycin. Follow-up with blood and sputum cultures. 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 (9) stage I decubitus buttocks Is this a current diagnosis for this admission?: Yes Plan: Wound care, frequent turning. (10) stage I decubitus right heel Is this a current diagnosis for this admission?: Yes (11) Remote history of stroke Is this a current diagnosis for this admission?: Yes (12) Acute renal failure superimposed on stage 3 chronic kidney disease Qualifiers: Acute renal failure type: with acute tubular necrosis Qualified Code(s): N17.0 - Acute kidney failure with tubular necrosis; N18.3 - Chronic kidney disease, stage 3 (moderate); N18.3 - Chronic kidney disease, stage 3 (moderate) Is this a current diagnosis for this admission?: Yes Plan: Avoid nephrotoxic agents. IV fluids. Monitor urine output and kidney function. - Time Time Spent with patient: 25-34 minutes
--- NOTE | 2017-06-18 23:24 | EKG REPORT ---
SEVERITY:- ABNORMAL ECG - SINUS RHYTHM NONSPECIFIC ST-T CHANGES : Confirmed by: Octavia Berry 18-Jun-2017 23:23:55
[2017-06-19] MEDS: IPRATROPIUM/ALBUTEROL 0.5-2.5 MG/3 ML AMPUL NEB SCH ×4 (01:48→19:26)
[2017-06-19] MEDS: OXYCODONE HCL IR 5 MG TABLET PO PRN ×4 (04:15→22:56)
[2017-06-19] MEDS: CLINDAMYCIN 600 MG/D5W RTU 600 MG/50 ML RTUPB IV SCH ×3 (05:49→21:46)
[2017-06-19] MEDS: HEPARIN SOD (PORCINE) 5,000 UNIT/ML 1 ML SYRINGE SUBCUT SCH ×3 (05:49→21:51)
[2017-06-19] MEDS: GABAPENTIN 100 MG CAPSULE PO SCH ×3 (05:49→21:46)
[2017-06-19 08:05] LABS: ABSOLUTE EOSINOPHILS # (AUTO) 0.2 10^3/uL (0.0-0.6); ABSOLUTE LYMPHOCYTES (AUTO) 0.6 10^3/uL (0.5-4.7); ABSOLUTE MONOCYTES (AUTO) 0.8 10^3/uL (0.1-1.4); ABSOLUTE NEUT (AUTO) 6.2 10^3/uL (1.7-8.2); BASOPHILS % (AUTO) 0.3 % (0-2); EOSINOPHILS % (AUTO) 2.2 % (0-6); HEMATOCRIT 28.7 % (37.9-51.0); HEMOGLOBIN 9.6 g/dL (13.5-17.0); LYMPHOCYTES % (AUTO) 7.5 % (13-45); MEAN CORPUSCULAR HEMOGLOBIN 28.9 pg (27.0-33.4); MEAN CORPUSCULAR HGB CONC 33.5 g/dL (32.0-36.0); MEAN CORPUSCULAR VOLUME 87 fl (80-97); MONOCYTES % (AUTO) 10.5 % (3-13); PLATELET COUNT 214 10^3/uL (150-450); RED BLOOD COUNT 3.32 10^6/uL (4.35-5.55); RED CELL DISTRIBUTION WIDTH 13.1 % (11.5-14.0); SEGMENTED NEUTROPHILS % (AUTO) 79.5 % (42-78); TOTAL CELLS COUNTED % (AUTO) 100 %; WHITE BLOOD COUNT 7.8 10^3/uL (4.0-10.5)
[2017-06-19 08:29] LABS: ASPARTATE AMINO TRANSFERASE 25 U/L (17-59); BILIRUBIN,DIRECT 0.3 mg/dL (0.0-0.4); BILIRUBIN,TOTAL 0.3 mg/dL (0.2-1.3); BLOOD UREA NITROGEN 28 mg/dL (7-20); CALCIUM 8.4 mg/dL (8.4-10.2); GLUCOSE 78 mg/dL (75-110); MAGNESIUM 1.9 mg/dL (1.6-2.3); POTASSIUM 3.6 mmol/L (3.6-5.0); SODIUM 143.9 mmol/L (137-145)
[2017-06-19 08:34] LABS: ALANINE AMINOTRANSFERASE 27 U/L (21-72); ALBUMIN 3.4 g/dL (3.5-5.0); ALKALINE PHOSPHATASE 56 U/L (38-126); ANION GAP 13 (5-19); CARBON DIOXIDE 24 mmol/L (22-30); CHLORIDE 107 mmol/L (98-107)
[2017-06-19] MEDS: FLUTICASONE NASAL SPRAY 50 MCG/SPRY 120 SPRAY/16 GM NASL SCH ×2 (10:21→21:46)
[2017-06-19] MEDS: 1/2 NORMAL SALINE 1,000 ML IV PRN (13:46)
--- NOTE | 2017-06-19 17:46 | PDOC PROGRESS REPORT ---
Subjective Progress Note for:: 06/19/17 Subjective:: 66-year-old gentleman with past medical history of Prior CVA with left-sided weakness Chronic kidney disease stage III Gait instability Chronic pain with opiate dependence Anxiety Depression Diabetes Esophageal cancer status post chemotherapy and radiation 5 years ago with recurrent aspiration pneumonia Declined PEG tube placement in the past He presented to the emergency room on June 17 with confusion leukocytosis and right upper lobe infiltrate on chest x-ray consistent with pneumonia. He was also found to have acute on chronic renal failure. The patient was started on IV fluids aspiration precautions and antibiotics. He is feeling better. Renal function is improving. He is awake and alert today. Next Reason For Visit: ASP PNEUMONIA,DIABETES,CHRONIC PAIN,AMS Physical Exam Vital Signs: Temp Pulse Resp BP Pulse Ox 98.1 F 73 16 143/64 H 98 06/19/17 11:28 06/19/17 14:09 06/19/17 14:09 06/19/17 11:28 06/19/17 11:28 Intake & Output 06/18/17 06/19/17 06/20/17 06:59 06:59 06:59 Intake Total 2301 Output Total 600 Balance 1701 Weight 77 kg Additional comments: Middle-aged male sitting up in bed he is awake alert and oriented 3 gait is normal not in rest Lungs: Clear to auscultation bilaterally normal respiratory effort Cardiac: S1-S2 regular no murmurs heard no peripheral edema no cyanosis no calf tenderness Skin: Warm and dry Speech is clear and fluent no facial droop Results Laboratory Results: 06/19/17 06:46 06/19/17 06:46 06/19/17 06/19/17 06:46 06:46 WBC 7.8 RBC 3.32 L Hgb 9.6 L Hct 28.7 L MCV 87 MCH 28.9 MCHC 33.5 RDW 13.1 Plt Count 214 Seg Neutrophils % 79.5 H Lymphocytes % 7.5 L Monocytes % 10.5 Eosinophils % 2.2 Basophils % 0.3 Absolute Neutrophils 6.2 Absolute Lymphocytes 0.6 Absolute Monocytes 0.8 Absolute Eosinophils 0.2 Absolute Basophils 0.0 Sodium 143.9 Potassium 3.6 Chloride 107 Carbon Dioxide 24 Anion Gap 13 BUN 28 H Creatinine 1.96 H Est GFR ( Amer) 41 L Est GFR (Non-Af Amer) 34 L Glucose 78 Calcium 8.4 Phosphorus 3.0 Magnesium 1.9 Total Bilirubin 0.3 AST 25 ALT 27 Alkaline Phosphatase 56 Total Protein 6.0 L Albumin 3.4 L Impressions: Chest X-Ray 06/18/17 00:53 IMPRESSION: Stable patchiness of the right upper lobe. 2010 [employer]- All Rights Reserved Head CT 06/18/17 02:29 IMPRESSION: No acute findings. 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 use Is this a current diagnosis for this admission?: Yes (9) stage I decubitus buttocks Is this a current diagnosis for this admission?: Yes (10) stage I decubitus right heel Is this a current diagnosis for this admission?: Yes (11) Remote history of stroke Is this a current diagnosis for this admission?: Yes (12) Acute renal failure superimposed on stage 3 chronic kidney disease Qualifiers: Acute renal failure type: with acute tubular necrosis Qualified Code(s): N17.0 - Acute kidney failure with tubular necrosis; N18.3 - Chronic kidney disease, stage 3 (moderate); N18.3 - Chronic kidney disease, stage 3 (moderate) Is this a current diagnosis for this admission?: Yes - Time Time Spent with patient: 25-34 minutes - Plan Summary Plan Summary: Continue gentle IV fluids monitor renal function. Uptitrate his outpatient medications for chronic pain now that he is more alert and his renal function is improving.
[2017-06-19] MEDS ORDERED: LACTOBACILLUS ACIDOPHILUS 250 MG TAB PO ONE (20:30)
[2017-06-19] MEDS: CHOLESTYRAMINE/ASPARTAME 4 GM PACKET PO SCH (21:46)
[2017-06-19] MEDS ORDERED: BUSPIRONE HCL 10 MG TABLET PO ONE (22:00)
[2017-06-20] MEDS: IPRATROPIUM/ALBUTEROL 0.5-2.5 MG/3 ML AMPUL NEB SCH ×4 (01:46→19:46)
[2017-06-20] MEDS ORDERED: CYCLOBENZAPRINE HCL 10 MG TABLET PO ONE (02:00)
[2017-06-20] MEDS: OXYCODONE HCL IR 5 MG TABLET PO PRN ×3 (05:01→18:00)
[2017-06-20] MEDS: HEPARIN SOD (PORCINE) 5,000 UNIT/ML 1 ML SYRINGE SUBCUT SCH (05:04)
[2017-06-20] MEDS: GABAPENTIN 100 MG CAPSULE PO SCH (05:09)
[2017-06-20] MEDS: CLINDAMYCIN 600 MG/D5W RTU 600 MG/50 ML RTUPB IV SCH (05:10)
[2017-06-20] MEDS: LACTOBACILLUS ACIDOPHILUS 250 MG TAB PO SCH ×2 (06:56→21:25)
[2017-06-20 07:26] LABS: ANION GAP 15 (5-19); BLOOD UREA NITROGEN 18 mg/dL (7-20); CALCIUM 9.6 mg/dL (8.4-10.2); CARBON DIOXIDE 26 mmol/L (22-30); CHLORIDE 102 mmol/L (98-107); GLUCOSE 155 mg/dL (75-110); POTASSIUM 3.6 mmol/L (3.6-5.0); SODIUM 143.3 mmol/L (137-145)
[2017-06-20] MEDS ORDERED: DIPHENOXYLATE HCL/ATROP SULF 2.5-0.025 MG TABLET PO PRN (08:39)
[2017-06-20] MEDS ORDERED: CARISOPRODOL 350 MG TABLET PO PRN (08:39)
[2017-06-20] MEDS ORDERED: (PENDING PHARMACY ID) (Pravastatin Sodium [Pravachol] 40 MG) PO SCH (09:00)
[2017-06-20] MEDS: FLUTICASONE NASAL SPRAY 50 MCG/SPRY 120 SPRAY/16 GM NASL SCH ×2 (09:40→21:29)
[2017-06-20] MEDS ORDERED: LEVORPHANOL TARTRATE PO SCH (10:00)
[2017-06-20] MEDS ORDERED: (PENDING PHARMACY ID) (Vitamin B Complex [Super B Complex] 1 CAP) PO SCH (10:00)
[2017-06-20] MEDS: CHLORHEXIDINE GLUCONATE 0.12% ORAL RINSE 15 ML UDC MM SCH ×2 (10:27→21:30)
[2017-06-20] MEDS: GLIPIZIDE XL 5 MG TAB.ER.24 PO SCH (10:28)
[2017-06-20] MEDS: FERROUS SULFATE 325 MG TABLET PO SCH (10:29)
[2017-06-20] MEDS: CYCLOBENZAPRINE HCL 10 MG TABLET PO PRN ×2 (10:29→21:29)
[2017-06-20] MEDS: FUROSEMIDE 20 MG TABLET PO SCH (10:30)
[2017-06-20] MEDS: TAMSULOSIN HCL 0.4 MG CAP.SR.24H PO SCH ×2 (10:30→21:36)
[2017-06-20] MEDS: ASPIRIN 81 MG TABLET, ENT COATED PO SCH (10:30)
[2017-06-20] MEDS: CLOPIDOGREL BISULFATE 75 MG TABLET PO SCH (10:30)
[2017-06-20] MEDS: METOPROLOL SUCCINATE 25 MG TAB.SR.24H PO SCH (10:31)
[2017-06-20] MEDS: CITALOPRAM HYDROBROMIDE 20 MG TABLET PO SCH (10:31)
[2017-06-20] MEDS: CHOLESTYRAMINE/ASPARTAME 4 GM PACKET PO SCH ×4 (10:35→21:36)
[2017-06-20] MEDS: BUSPIRONE HCL 10 MG TABLET PO SCH ×2 (10:36→17:59)
[2017-06-20] MEDS ORDERED: CYANOCOBALAMIN/FA/PYRIDOXINE TABLET PO ONE (11:00)
[2017-06-20] MEDS ORDERED: AMOXICILLIN TR/POT CLAVULANATE 500-125 MG TAB PO ONE (11:00)
[2017-06-20] MEDS: PENTOXIFYLLINE 400 MG TABLET.SA PO SCH ×2 (11:48→18:01)
[2017-06-20] MEDS ORDERED: GABAPENTIN 300 MG CAPSULE PO SCH ×2 (12:00)
[2017-06-20] MEDS: 1/2 NORMAL SALINE 1,000 ML IV PRN ×2 (12:00→23:11)
[2017-06-20] MEDS: GABAPENTIN 400 MG CAPSULE PO SCH ×3 (12:00→23:09)
[2017-06-20] MEDS ORDERED: BUSPIRONE HCL 10 MG TABLET PO SCH (14:00)
[2017-06-20] MEDS ORDERED: ONDANSETRON HCL INJ/PF 4 MG/2 ML SDV IV PRN (14:58)
[2017-06-20] MEDS: AMOXICILLIN TR/POT CLAVULANATE 500-125 MG TAB PO SCH (18:00)
[2017-06-20] MEDS: LANSOPRAZOLE 30 MG TAB.RAP.DR PO SCH (18:01)
--- NOTE | 2017-06-20 19:02 | PDOC PROGRESS REPORT ---
Subjective Progress Note for:: 06/20/17 Subjective:: was feeling ok this am, but became nauseaous and vomited this afternoon. Renal function is improving Reason For Visit: ASP PNEUMONIA,DIABETES,CHRONIC PAIN,AMS Physical Exam Vital Signs: Temp Pulse Resp BP Pulse Ox 98.1 F 84 18 168/76 H 100 06/20/17 16:00 06/20/17 16:00 06/20/17 16:00 06/20/17 16:00 06/20/17 16:00 Intake & Output 06/19/17 06/20/17 06/21/17 06:59 06:59 06:59 Intake Total 2301 720 337 Output Total 600 750 5 Balance 1701 -30 332 Weight 77 kg 77 kg Results Laboratory Results: 06/19/17 06:46 06/20/17 06:00 06/20/17 06:00 Sodium 143.3 Potassium 3.6 Chloride 102 Carbon Dioxide 26 Anion Gap 15 BUN 18 Creatinine 1.55 H Est GFR ( Amer) 54 L Est GFR (Non-Af Amer) 45 L Glucose 155 H Calcium 9.6 Impressions: Chest X-Ray 06/18/17 00:53 IMPRESSION: Stable patchiness of the right upper lobe. 2010 [employer]- All Rights Reserved Head CT 06/18/17 02:29 IMPRESSION: No acute findings. 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 use Is this a current diagnosis for this admission?: Yes (9) stage I decubitus buttocks Is this a current diagnosis for this admission?: Yes (10) stage I decubitus right heel Is this a current diagnosis for this admission?: Yes (11) Remote history of stroke Is this a current diagnosis for this admission?: Yes (12) Acute renal failure superimposed on stage 3 chronic kidney disease Qualifiers: Acute renal failure type: with acute tubular necrosis Qualified Code(s): N17.0 - Acute kidney failure with tubular necrosis; N18.3 - Chronic kidney disease, stage 3 (moderate); N18.3 - Chronic kidney disease, stage 3 (moderate) Is this a current diagnosis for this admission?: Yes - Time Time Spent with patient: 25-34 minutes - Plan Summary Plan Summary: He felt better with Zofran, continue IV fluids and antibiotics.
[2017-06-20] MEDS ORDERED: ATORVASTATIN CALCIUM 10 MG TABLET PO SCH (22:00)
[2017-06-21] MEDS: OXYCODONE HCL IR 5 MG TABLET PO PRN ×2 (00:25→06:25)
[2017-06-21] MEDS: BUSPIRONE HCL 10 MG TABLET PO SCH ×2 (01:25→09:48)
[2017-06-21] MEDS: AMOXICILLIN TR/POT CLAVULANATE 500-125 MG TAB PO SCH ×2 (01:25→09:48)
[2017-06-21] MEDS: IPRATROPIUM/ALBUTEROL 0.5-2.5 MG/3 ML AMPUL NEB SCH ×2 (01:37→07:40)
[2017-06-21] MEDS: LANSOPRAZOLE 30 MG TAB.RAP.DR PO SCH (05:20)
[2017-06-21] MEDS: GABAPENTIN 400 MG CAPSULE PO SCH (05:20)
[2017-06-21 05:22] LABS: ANION GAP 14 (5-19); BLOOD UREA NITROGEN 15 mg/dL (7-20); CALCIUM 9.7 mg/dL (8.4-10.2); CARBON DIOXIDE 27 mmol/L (22-30); CHLORIDE 103 mmol/L (98-107); GLUCOSE 79 mg/dL (75-110); POTASSIUM 3.8 mmol/L (3.6-5.0); SODIUM 143.7 mmol/L (137-145)
[2017-06-21] MEDS: LACTOBACILLUS ACIDOPHILUS 250 MG TAB PO SCH (06:27)
--- NOTE | 2017-06-21 08:08 | RADIOLOGY REPORT (SQ) ---
EXAM DESCRIPTION: FOOT LEFT 2 VIEWS COMPLETED DATE/TIME: 06/21/2017 7:49 am REASON FOR STUDY: fall COMPARISON: None. NUMBER OF VIEWS: Three views. TECHNIQUE: AP, lateral and oblique radiographic images acquired of the left foot. LIMITATIONS: None. FINDINGS: MINERALIZATION: Normal. BONES: No acute fracture or dislocation. No worrisome bone lesions. Posterior calcaneal spurring. JOINTS: Mild to moderate diffuse osteoarthritis. SOFT TISSUES: No soft tissue swelling. No foreign body. OTHER: No other significant finding. IMPRESSION: NO RADIOGRAPHIC EVIDENCE OF ACUTE INJURY. TECHNICAL DOCUMENTATION: JOB ID: [id number] 2004 [employer]- All Rights Reserved
--- NOTE | 2017-06-21 08:08 | RADIOLOGY REPORT (SQ) ---
EXAM DESCRIPTION: KNEE LEFT 2 VIEWS COMPLETED DATE/TIME: 06/21/2017 7:49 am REASON FOR STUDY: fall COMPARISON: None. NUMBER OF VIEWS: Two views. TECHNIQUE: AP and lateral radiographic images acquired of the left knee. LIMITATIONS: None. FINDINGS: MINERALIZATION: Normal. BONES: No acute fracture or dislocation. No worrisome bone lesions. JOINT: No effusion. SOFT TISSUES: Vascular calcifications. No soft tissue swelling. No radio-opaque foreign body. OTHER: No other significant finding. IMPRESSION: NO ACUTE OSSEOUS ABNORMALITY. TECHNICAL DOCUMENTATION: JOB ID: [id number] [employer]- All Rights Reserved
[2017-06-21] MEDS: CHOLESTYRAMINE/ASPARTAME 4 GM PACKET PO SCH (08:20)
[2017-06-21] MEDS: ASPIRIN 81 MG TABLET, ENT COATED PO SCH (09:48)
[2017-06-21] MEDS: FUROSEMIDE 20 MG TABLET PO SCH (09:48)
[2017-06-21] MEDS: CHLORHEXIDINE GLUCONATE 0.12% ORAL RINSE 15 ML UDC MM SCH (09:48)
[2017-06-21] MEDS: FERROUS SULFATE 325 MG TABLET PO SCH (09:48)
[2017-06-21] MEDS: CLOPIDOGREL BISULFATE 75 MG TABLET PO SCH (09:48)
[2017-06-21] MEDS: GLIPIZIDE XL 5 MG TAB.ER.24 PO SCH (09:48)
[2017-06-21] MEDS: CITALOPRAM HYDROBROMIDE 20 MG TABLET PO SCH (09:48)
[2017-06-21] MEDS: FLUTICASONE NASAL SPRAY 50 MCG/SPRY 120 SPRAY/16 GM NASL SCH (09:49)
[2017-06-21] MEDS: PENTOXIFYLLINE 400 MG TABLET.SA PO SCH (09:49)
[2017-06-21] MEDS: METOPROLOL SUCCINATE 25 MG TAB.SR.24H PO SCH (09:49)
[2017-06-21] MEDS: TAMSULOSIN HCL 0.4 MG CAP.SR.24H PO SCH (09:49)
[2017-06-21 10:00] VITALS: BP 171/76
[2017-06-21] MEDS ORDERED: CYANOCOBALAMIN/FA/PYRIDOXINE TABLET PO SCH (10:00)
--- NOTE | 2017-06-21 13:46 | PDOC DISCHARGE SUMMARY ---
General - Admit/Disc Date/PCP Admission Date/Primary Care Provider: 06/18/17 03:50 NEVAEH CHAVEZ PA-C Discharge Date: 06/21/17 - Discharge Diagnosis (1) Metabolic encephalopathy Is this a current diagnosis for this admission?: Yes (2) Aspiration pneumonia Is this a current diagnosis for this admission?: Yes (3) Hypoxemia Is this a current diagnosis for this admission?: Yes (8) Type II diabetes mellitus Is this a current diagnosis for this admission?: Yes (9) stage I decubitus buttocks Is this a current diagnosis for this admission?: Yes (10) stage I decubitus right heel Is this a current diagnosis for this admission?: Yes (11) Remote history of stroke Is this a current diagnosis for this admission?: Yes (12) Acute renal failure superimposed on stage 3 chronic kidney disease Is this a current diagnosis for this admission?: Yes - Additional Information Resuscitation Status: Do Not Resuscitate Discharge Activity: Activity As Tolerated Prescriptions: Amox Tr/Potassium Clavulanate [Augmentin "500" Tablet] 1 tab PO Q8A 5 Days #11 tablet Gabapentin [Neurontin 400 mg Capsule] 400 mg PO BID #60 capsule Home Medications: Aspirin [Adult Low Dose Aspirin EC] 81 mg PO DAILY 06/18/17 Buspirone HCl [Buspar 30 mg Tablet] 30 mg PO TID 06/18/17 Chlorhexidine Gluconate [Peridex 0.12% Oral Rinse 473 ml] 15 ml PO Q12 06/18/17 Citalopram Hydrobromide [Celexa 20 mg Tablet] 20 mg PO DAILY 06/18/17 Clopidogrel Bisulfate [Plavix 75 mg Tablet] 75 mg PO DAILY 06/18/17 Cyclobenzaprine HCl [Flexeril 10 mg Tablet] 10 mg PO BIDP PRN 06/18/17 Diphenoxylate HCl/Atrop Sulf [Lomotil 2.5 mg Tablet] 2 tab PO QIDP PRN 06/18/17 Ferrous Sulfate [Feosol 325 mg Tablet] 325 mg PO DAILY 06/18/17 Furosemide [Lasix 20 mg Tablet] 20 mg PO DAILY 06/18/17 Levorphanol Tartrate [Levo-Dromoran] 2 mg PO 5XD 06/18/17 Metoprolol Succinate [Toprol Xl 25 mg Tab.sr] 25 mg PO DAILY 06/18/17 Oxycodone HCl/Acetaminophen [Percocet 5-325 mg Tablet] 1 tab PO BIDP PRN Pantoprazole Sodium [Protonix] 40 mg PO BID 06/18/17 Pentoxifylline [Pentoxil] 400 mg PO BID 06/18/17 Pravastatin Sodium [Pravachol] 40 mg PO QHS 06/18/17 Tamsulosin HCl [Flomax 0.4 mg Cap.sr] 0.4 mg PO BID 06/18/17 Vitamin B Complex [Super B Complex] 1 cap PO DAILY 06/18/17 Amox Tr/Potassium Clavulanate [Augmentin "500" Tablet] 1 tab PO Q8A 5 Days #11 tablet 06/21/17 Gabapentin [Neurontin 400 mg Capsule] 400 mg PO BID #60 capsule 06/21/17 Glipizide [Glucotrol Xl 5 mg Tab.er] 5 mg PO DAILY tab.er.24 06/21/17 History of Present Illness History of Present Illness: 66-year-old gentleman with past medical history of Prior CVA with left-sided weakness Chronic kidney disease stage III Gait instability Chronic pain with opiate dependence Anxiety Depression Diabetes Esophageal cancer status post chemotherapy and radiation 5 years ago with recurrent aspiration pneumonia Declined PEG tube placement in the past He presented to the emergency room on June 17 with confusion leukocytosis and right upper lobe infiltrate on chest x-ray consistent with pneumonia. He was also found to have acute on chronic renal failure. The patient was started on IV fluids aspiration precautions and antibiotics. He will be discharged on home antibiotics, renal function is back to baseline. He was aked to stop Soma since it led to confusion. Gapapentin dose was reduced to 400 mg BID to prevent excessive somnolence Hospital Course Hospital Course: as above Physical Exam Vital Signs: Temp Pulse Resp BP Pulse Ox 98.3 F 77 16 171/76 H 97 06/21/17 07:29 06/21/17 07:44 06/21/17 07:44 06/21/17 07:29 06/21/17 07:44 Intake & Output 06/20/17 06/21/17 06/22/17 06:59 06:59 06:59 Intake Total 720 2317 Output Total 750 7 Balance -30 2310 Weight 77 kg 75 kg Additional comments: Lungs: Clear to auscultation bilaterally normal respiratory effort Cardiac: S1-S2 regular no murmurs heard no peripheral edema no cyanosis no calf tenderness Skin: Warm and dry Speech is clear and fluent no facial droop Results Laboratory Results: 06/19/17 06:46 06/21/17 04:03 06/21/17 04:03 Sodium 143.7 Potassium 3.8 Chloride 103 Carbon Dioxide 27 Anion Gap 14 BUN 15 Creatinine 1.63 H Est GFR ( Amer) 51 L Est GFR (Non-Af Amer) 42 L Glucose 79 Calcium 9.7 Impressions: Chest X-Ray 06/18/17 00:53 IMPRESSION: Stable patchiness of the right upper lobe. 2011 [employer]- All Rights Reserved Head CT 06/18/17 02:29 IMPRESSION: No acute findings. Foot X-Ray 06/21/17 00:00 IMPRESSION: NO RADIOGRAPHIC EVIDENCE OF ACUTE INJURY. Knee X-Ray 06/21/17 00:00 IMPRESSION: NO ACUTE OSSEOUS ABNORMALITY. Plan Time Spent: Greater than 30 Minutes
== END 2017-06-21 10:40 | disposition home or self-care (01) | DRG 177 ==
LOC: ER 22:20 → EH 06-18 03:50 → 5 06-18 15:00
PROVIDERS: ADMIT Internal Medicine; ATTEND Internal Medicine
DX: J69.0 Pneumonitis due to inhalation of food and vomit (principal); G93.41 Metabolic encephalopathy; N17.9 Acute kidney failure, unspecified; I69.954 Hemiplegia and hemiparesis following unspecified cerebrovascular disease affecting left non-dominant side; G89.4 Chronic pain syndrome; I12.9 Hypertensive chronic kidney disease with stage 1 through stage 4 chronic kidney disease, or unspecified chronic kidney disease; E11.22 Type 2 diabetes mellitus with diabetic chronic kidney disease; N18.3 Chronic kidney disease, stage 3 (moderate); I25.10 Atherosclerotic heart disease of native coronary artery without angina pectoris; I25.2 Old myocardial infarction; E78.5 Hyperlipidemia, unspecified; K21.9 Gastro-esophageal reflux disease without esophagitis; F41.1 Generalized anxiety disorder; M19.90 Unspecified osteoarthritis, unspecified site; R26.89 Other abnormalities of gait and mobility; R47.81 Slurred speech; R09.02 Hypoxemia; L89.611 Pressure ulcer of right heel, stage 1; L89.301 Pressure ulcer of unspecified buttock, stage 1; D64.9 Anemia, unspecified; F32.9 Major depressive disorder, single episode, unspecified; Z85.819 Personal history of malignant neoplasm of unspecified site of lip, oral cavity, and pharynx; Z79.891 Long term (current) use of opiate analgesic; Z95.1 Presence of aortocoronary bypass graft; Z92.3 Personal history of irradiation; Z88.6 Allergy status to analgesic agent; Z92.21 Personal history of antineoplastic chemotherapy; Z88.2 Allergy status to sulfonamides; Z66 Do not resuscitate; Z82.49 Family history of ischemic heart disease and other diseases of the circulatory system; Z83.3 Family history of diabetes mellitus; Z79.82 Long term (current) use of aspirin; Z79.899 Other long term (current) drug therapy
CPT/HCPCS: 36415; 70450; 71045; 80048; 80053; 80307; 82140; 82803; 82962; 83735; 84100; 85025; 87040; 93005; 93010; 94640; 94799; 99285; G8996-GN; G8997-GN; G8998-GN; J0295; J1644; J2405; J3490; J7030; J7040; J7620

== ENCOUNTER → 2017-06-30 | Outpatient (CLI) | payer MEDICARE ==
--- NOTE | 2017-06-30 14:54 | RADIOLOGY REPORT (SQ) ---
EXAM DESCRIPTION: CHEST PA/LATERAL COMPLETED DATE/TIME: 06/30/2017 2:10 pm REASON FOR STUDY: MALIGNANT NEOPLASM OF HEAD, FACE AND NECK COMPARISON: 06/18/2017, 05/31/2017 EXAM PARAMETERS: NUMBER OF VIEWS: two views TECHNIQUE: Digital Frontal and Lateral radiographic views of the chest acquired. RADIATION DOSE: NA LIMITATIONS: none FINDINGS: LUNGS AND PLEURA: Right apical pleural and parenchymal density and hilar retraction is unc hanged. Surgical clips overlying left hilum. MEDIASTINUM AND HILAR STRUCTURES: See above. HEART AND VASCULAR STRUCTURES: Heart normal size. No evidence for failure. BONES: No acute findings. HARDWARE: CABG. OTHER: No other significant finding. IMPRESSION: Stable appearance of the chest. TECHNICAL DOCUMENTATION: JOB ID: [id number] [employer]- All Rights Reserved
== END ==
LOC: OD 14:00
PROVIDERS: ATTEND Internal Medicine Medical Oncology
DX: C76.0 Malignant neoplasm of head, face and neck (principal); Z87.898 Personal history of other specified conditions
CPT/HCPCS: 71046

== ENCOUNTER 2017-08-08 12:43 | Inpatient (IN) | payer MEDICARE ==
[2017-08-08] MEDS ORDERED: NORMAL SALINE 1000 ML 1,000 ML IV ONE (13:10)
--- NOTE | 2017-08-08 13:12 | ER Document Report ---
ED Medical Screen (RME) - General Chief Complaint: Shortness Of Breath Stated Complaint: COUGH Time Seen by Provider: 08/08/17 12:54 Notes: RME DISCLOSURE I have seen this patient as part of a Rapid Medical Evaluation and, if applicable, placed any initially appropriate orders. The patient will be seen and fully evaluated, including a full history and physical exam, by a provider ( in Main ED or Fast Track) when a room becomes available. 67-year-old male here with complaints of cough productive yellow sputum and shortness of breath ongoing for the past 2 days. He was seen at his PCP office earlier today and oxygen saturations were 82% so he was sent here for further evaluation. He states that he has been treated for pneumonia multiple times recently. TRAVEL OUTSIDE OF THE [place] IN LAST 30 DAYS: No - Related Data Allergies/Adverse Reactions: Sulfa (Sulfonamide Antibiotics) Allergy (Intermediate, Verified 06/18/17 06:21) COLD SORES IN MOUTH codeine phosphate [From Tylenol-Codeine] Allergy (Verified 06/18/17 06:21) Hives zolpidem tartrate [From Ambien] Adverse Reaction (Verified 06/18/17 06:21) Hallucinations Past Medical History - Social History Frequency of alcohol use: None Drug Abuse: None - Past Medical History Cardiac Medical History: Reports: Hx Coronary Artery Disease, Hx Heart Attack, Hx Hypercholesterolemia, Hx Hypertension Pulmonary Medical History: Reports: Hx Pneumonia - Aspiration pneumonia Denies: Hx Asthma, Hx Bronchitis, Hx COPD Neurological Medical History: Reports: Hx Cerebrovascular Accident - left sided weakness, Hx Seizures - last sz about 5 years ago,off medication about 1-2 years ago. Endocrine Medical History: Reports: Hx Diabetes Mellitus Type 2 Renal/ Medical History: Reports: Hx Renal Insufficiency. Denies: Hx Peritoneal Dialysis GI Medical History: Reports: Hx Gastroesophageal Reflux Disease Musculoskeltal Medical History: Reports Hx Arthritis Psychiatric Medical History: Reports: Hx Depression Past Surgical History: Reports: Hx Cardiac Catheterization, Hx Cardiac Surgery - 2 bypass, Hx Coronary Artery Bypass Graft - x2, Hx Orthopedic Surgery - Back, bilat feet - Immunizations Hx Diphtheria, Pertussis, Tetanus Vaccination: Yes History of Influenza Vaccine for 03/2017 - 07/2017 Season: Yes Physical Exam - Vital signs Vitals: Temp Pulse Resp BP Pulse Ox 98.5 F 130 H 18 147/109 H 91 L 08/08/17 12:48 08/08/17 12:48 08/08/17 12:48 08/08/17 12:48 08/08/17 12:48 Course - Vital Signs Vital signs: Temp Pulse Resp BP Pulse Ox 98.5 F 130 H 18 147/109 H 91 L 08/08/17 12:48 08/08/17 12:48 08/08/17 12:48 08/08/17 12:48 08/08/17 12:48
--- NOTE | 2017-08-08 14:28 | ER Document Report ---
ED General - General Chief Complaint: Shortness Of Breath Stated Complaint: COUGH Time Seen by Provider: 08/08/17 12:54 Notes: Is a 59-year-old male with a history of stroke renal failure and previous aspiration pneumonia most recently admitted 2 months ago for the same presenting with "I have pneumonia" which he describes as increasing cough shortness of breath and aspiration. Symptoms are now severe. He has intermittent oxygen use at home. He denies leg swelling chest pain or fever recently. No nausea vomiting or diarrhea. TRAVEL OUTSIDE OF THE [place] IN LAST 30 DAYS: No - Related Data Allergies/Adverse Reactions: Sulfa (Sulfonamide Antibiotics) Allergy (Intermediate, Verified 06/18/17 06:21) COLD SORES IN MOUTH codeine phosphate [From Tylenol-Codeine] Allergy (Verified 06/18/17 06:21) Hives zolpidem tartrate [From Ambien] Adverse Reaction (Verified 06/18/17 06:21) Hallucinations Past Medical History - Social History Smoking Status: Never Smoker Frequency of alcohol use: None Drug Abuse: None Family History: DM, Hypertension, Other - heart disease Patient has suicidal ideation: No Patient has homicidal ideation: No - Past Medical History Cardiac Medical History: Reports: Hx Coronary Artery Disease, Hx Heart Attack, Hx Hypercholesterolemia, Hx Hypertension Pulmonary Medical History: Reports: Hx Pneumonia - Aspiration pneumonia Denies: Hx Asthma, Hx Bronchitis, Hx COPD Neurological Medical History: Reports: Hx Cerebrovascular Accident - left sided weakness, Hx Seizures - last sz about 5 years ago,off medication about 1-2 years ago. Endocrine Medical History: Reports: Hx Diabetes Mellitus Type 2 Renal/ Medical History: Reports: Hx Renal Insufficiency. Denies: Hx Peritoneal Dialysis GI Medical History: Reports: Hx Gastroesophageal Reflux Disease Musculoskeltal Medical History: Reports Hx Arthritis Psychiatric Medical History: Reports: Hx Depression Past Surgical History: Reports: Hx Cardiac Catheterization, Hx Cardiac Surgery - 2 bypass, Hx Coronary Artery Bypass Graft - x2, Hx Orthopedic Surgery - Back, bilat feet - Immunizations Hx Diphtheria, Pertussis, Tetanus Vaccination: Yes Hx Pneumococcal Vaccination: 03/02/14 Review of Systems - Review of Systems Notes: REVIEW OF SYSTEMS GEN: Denies fever, chills, weight loss ENT: Denies sore throat, nasal discharge, ear pain EYES: Denies blurry vision, eye pain, discharge CV: Denies chest pain, palpitations, edema RESP: Cough aspiration shortness of breath GI: Denies abdominal pain, nausea, vomiting, diarrhea MSK: Denies joint pain/swelling, edema, SKIN: Denies rash, skin lesions LYMPH: Denies swollen glands/lymph nodes NEURO: Denies headache, focal weakness or numbness, dizziness PSYCH: Denies depression, suicidal or homicidal ideation PHYSICAL EXAMINATION General: No acute distress, well-nourished Head: Atraumatic, normocephalic ENT: Mouth normal, oropharynx moist, no exudates or tonsillar enlargement Eyes: Conjunctiva normal, pupils equal, lids normal Neck: No JVD, supple, no guarding CVS: Normal rate, regular rhythm, no murmurs Resp: No resp distress, equal and normal breath sounds bilaterally GI: Nondistended, soft, no tenderness to palpation, no rebound or guarding Ext: No deformities, no edema, normal range of motion in upper and lower ext Back: No CVA or midline TTP Skin: No rash, warm Lymphatic: No lymphadeopathy noted Neuro: Awake, alert. GCS 15. Intermittent right greater than left myoclonic jerking. Baseline left-sided weakness. Speech is fluent. Face looks symmetric. Physical Exam - Vital signs Vitals: Temp Pulse Resp BP Pulse Ox 98.5 F 130 H 18 147/109 H 91 L 08/08/17 12:48 08/08/17 12:48 08/08/17 12:48 08/08/17 12:48 08/08/17 12:48 Course - Re-evaluation Re-evalutation: 08/08/17 14:28 Ill-appearing tachycardic 59-year-old male presenting with signs and symptoms of aspiration pneumonia plus or minus sepsis. Septic protocol initiated. Chest x-ray will be done, he will get IV fluids and I will consider antibiotics. We are doing a rectal temperature. 08/08/17 15:15 Rectal temp is 103. Sepsis is identified. At 315 I ordered antibiotics. Patient will continue to receive fluids. X-ray is negative at this time. - Vital Signs Vital signs: Temp Pulse Resp BP Pulse Ox 98.5 F 130 H 18 147/109 H 91 L 08/08/17 12:48 08/08/17 12:48 08/08/17 12:48 08/08/17 12:48 08/08/17 12:48 Critical Care Note - Critical Care Note Total time excluding time spent on procedures (mins): 32 Comments: The above patient is critically ill. Not including procedures, but including direct re-evaluations, speaking with patient and/or consultants, interpreting results, and documenting, I spent the total amount of minute listed listed above on critical care time Discharge - Discharge Clinical Impression: Sepsis Qualifiers: Sepsis type: sepsis due to unspecified organism Qualified Code(s): A41.9 - Sepsis, unspecified organism Condition: Fair Disposition: ADMITTED INPATIENT Admitting Provider: Hospitalist Unit Admitted: [facility]
--- NOTE | 2017-08-08 14:50 | RADIOLOGY REPORT (SQ) ---
EXAM DESCRIPTION: CHEST PA/LAT COMPLETED DATE/TIME: 08/08/2017 2:31 pm REASON FOR STUDY: SOB, hypoxia; eval pneumonia vs edema COMPARISON: 05/31/2017 EXAM PARAMETERS: NUMBER OF VIEWS: two views TECHNIQUE: Digital Frontal and Lateral radiographic views of the chest acquired. RADIATION DOSE: NA LIMITATIONS: none FINDINGS: LUNGS AND PLEURA: There is scarring in the right apex. There is no acute infiltrate. The re is no pleural effusion. MEDIASTINUM AND HILAR STRUCTURES: No masses or contour abnormalities. HEART AND VASCULAR STRUCTURES: Heart normal size. No evidence for failure. BONES: No acute findings. HARDWARE: None in the chest. OTHER: No other significant finding. IMPRESSION: Chronic lung changes with no acute cardiopulmonary disease. TECHNICAL DOCUMENTATION: JOB ID: [id number] [employer]- All Rights Reserved Reading location - IP/workstation name: [email or web address]
[2017-08-08] MEDS ORDERED: VANCOMYCIN HCL INJ 1000 MG VIAL IV ONE (15:14)
[2017-08-08 15:20] LABS: HEMATOCRIT 39.1 % (37.9-51.0); HEMOGLOBIN 12.7 g/dL (13.5-17.0); MEAN CORPUSCULAR HEMOGLOBIN 27.9 pg (27.0-33.4); MEAN CORPUSCULAR HGB CONC 32.4 g/dL (32.0-36.0); MEAN CORPUSCULAR VOLUME 86 fl (80-97); PLATELET COUNT 262 10^3/uL (150-450); RED BLOOD COUNT 4.55 10^6/uL (4.35-5.55); RED CELL DISTRIBUTION WIDTH 13.6 % (11.5-14.0); WHITE BLOOD COUNT 13.3 10^3/uL (4.0-10.5)
[2017-08-08] MEDS ORDERED: SUCCINYLCHOLINE CHLORIDE INJ 200 MG/10 ML VIAL ONE (15:26)
[2017-08-08 15:38] LABS: ALANINE AMINOTRANSFERASE 31 U/L (21-72); ALBUMIN 4.7 g/dL (3.5-5.0); ALKALINE PHOSPHATASE 83 U/L (38-126); ANION GAP 15 (5-19); ASPARTATE AMINO TRANSFERASE 27 U/L (17-59); BILIRUBIN,DIRECT 0.5 mg/dL (0.0-0.4); BILIRUBIN,TOTAL 0.5 mg/dL (0.2-1.3); BLOOD UREA NITROGEN 44 mg/dL (7-20); CALCIUM 10.1 mg/dL (8.4-10.2); CARBON DIOXIDE 28 mmol/L (22-30); CHLORIDE 99 mmol/L (98-107); GLUCOSE 245 mg/dL (75-110); POTASSIUM 4.7 mmol/L (3.6-5.0); SODIUM 142.4 mmol/L (137-145); TOTAL PROTEIN 8.6 g/dL (6.3-8.2)
[2017-08-08 15:47] LABS: ABSOLUTE LYMPHOCYTES# (MANUAL) 0.4 10^3/uL (0.5-4.7); ABSOLUTE MONOCYTES # (MANUAL) 0.9 10^3/uL (0.1-1.4); BASOPHILS % (MANUAL) 0 % (0-2); EOSINOPHILS % (MANUAL) 0 % (0-6); LYMPHOCYTES % (MANUAL) 3 % (13-45); MONOCYTES % (MANUAL) 7 % (3-13); SEGMENTED NEUTROPHILS % (MAN) 90 % (42-78); TOTAL CELLS COUNTED 100
[2017-08-08 15:48] LABS: PLATELET COMMENT ADEQUATE; TOXIC GRANULATION SLIGHT
--- NOTE | 2017-08-08 16:38 | PDOC H&P ---
History of Present Illness Admission Date/PCP: 08/08/17 15:26 NEVAEH CHAVEZ PA-C Patient complains of: Family brought patient in secondary to altered mental status. History of Present Illness: MACI RODRIGUEZ SR is a 67 year old male who has a prior history of dysphasia with aspiration pneumonia. The patient was recently admitted to our facility in June 2017 with a presentation of aspiration pneumonia. The family is obtained from the patient's niece, Julisa Campuzano. She states that her uncle has been acting differently. She has noted that his lungs have started to sound coarse and she has been asking him to take his breathing treatments in the morning. 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 In the emergency department the patient has been tachycardic to 120-130. He is in sinus tachycardia. His fever is greater than 103 Fahrenheit. Presumably, he has had an aspiration event. His niece seems to agree that this is likely what happened. The patient has had a previous stroke and has dysphasia. He also has a prior history of head and neck cancer to the throat and tongue status post chemo and radiation. He has been having difficulty with dysphasia since the treatment for the head and neck cancer. He has adamantly refused a PEG tube in the past. He is currently DNR. Unfortunately, I cannot obtain a review of systems from the patient or from his niece Julisa. The patient's drug allergies and medication list were reviewed from his recent admission in June. His niece states that she does not think he has had any medication changes. Apparently, the discharge summary recommended discontinuation of Soma upon his last admission and discharge. Past Medical History Cardiac Medical History: Reports: Coronary Artery Disease, Myocardial Infarction , Hyperlipidema, Hypertension Pulmonary Medical History: Reports: Pneumonia - Aspiration pneumonia Denies: Asthma, Bronchitis, Chronic Obstructive Pulmonary Disease (COPD) Neurological Medical History: Reports: Seizures - last sz about 5 years ago,off medication about 1-2 years ago. Endocrine Medical History: Reports: Diabetes Mellitus Type 2 GI Medical History: Reports: Gastroesophageal Reflux Disease Musculoskeltal Medical History: Reports: Arthritis Psychiatric Medical History: Reports: Depression Hematology: Reports: Anemia Past Surgical History Past Surgical History: Reports: Cardiac Catheterization, Coronary Artery Bypass Graft - x2, Orthopedic Surgery - Back, bilat feet Social History Smoking Status: Unknown if Ever Smoked Frequency of Alcohol Use: None - The patient is a recovering alcoholic. Smoking status is unknown. Hx Recreational Drug Use: Yes Drugs: None Hx Prescription Drug Abuse: No - Advance Directive Resuscitation Status: Do Not Resuscitate Surrogate healthcare decision maker:: Currently, the patient's surrogate decision maker is Shantanu Mckoy. This is the patient's son-in-law. The only phone number that I have for Mr. Mckoy at this time is his 's number, Rosalina. The number is [phone]. The patient lives with his sister and niece. His sister's name is Meg Suero and his niece's name is Julisa Campuzano. Julisa's phone number is [phone]. Meg' s phone number is [phone]. Both Julisa and Meg are closer than Shantanu and Rosalina and can be at the hospital within 5 minutes if needed. Family History Family History: DM, Hypertension, Other - heart disease Parental Family History Reviewed: Yes - Father was an alcoholic, mother had coronary artery disease and diabetes Children Family History Reviewed: Yes Sibling(s) Family History Reviewed.: Yes Medication/Allergy Allergies/Adverse Reactions: Sulfa (Sulfonamide Antibiotics) Allergy (Intermediate, Verified 06/18/17 06:21) COLD SORES IN MOUTH codeine phosphate [From Tylenol-Codeine] Allergy (Verified 06/18/17 06:21) Hives zolpidem tartrate [From Ambien] Adverse Reaction (Verified 06/18/17 06:21) Hallucinations Review of Systems ROS unobtainable: Due to mental status Physical Exam Vital Signs: Temp Pulse Resp BP Pulse Ox 103.4 F H 130 H 18 147/109 H 91 L 08/08/17 15:15 08/08/17 12:48 08/08/17 12:48 08/08/17 12:48 08/08/17 12:48 Additional comments: Patient is a thin male. Initially, he appeared to be alert and oriented, but was unable to answer any questions appropriately. He does not realize that he is in the emergency department and he does not know why. He is mildly agitated. His facial appearance demonstrates that his pupils are equally round and reactive to light. His oropharynx is unremarkable. His neck is supple. Trachea is midline. He does not have any palpable cervical or supraclavicular lymphadenopathy. His lungs are quite clear to auscultation anteriorly. He has a few scattered crackles in the posterior lung silva right greater than left. His cardiac exam demonstrates a tachycardic rhythm with a positive S4. Otherwise, there are no murmurs or rubs. The abdomen is mildly distended. The patient does not have any guarding or rebound noted. Bowel sounds are hypoactive. He does not have any hernias or masses present. The lower extremities are unremarkable. No edema is present. The patient does have a few erythematous spots on his face which are new according to his knees. Otherwise, he does not have any acute skin lesions or rashes. Results Impressions: Chest X-Ray 08/08/17 12:55 IMPRESSION: Chronic lung changes with no acute cardiopulmonary disease. Assessment & Plan - Diagnosis (1) Fever Is this a current diagnosis for this admission?: Yes (2) Sinus tachycardia Is this a current diagnosis for this admission?: Yes (3) Acute renal failure superimposed on stage 3 chronic kidney disease Qualifiers: Acute renal failure type: with acute tubular necrosis Qualified Code(s): N17.0 - Acute kidney failure with tubular necrosis; N18.3 - Chronic kidney disease, stage 3 (moderate); N18.3 - Chronic kidney disease, stage 3 (moderate) Is this a current diagnosis for this admission?: Yes (5) Aspiration pneumonia Is this a current diagnosis for this admission?: Yes (6) Metabolic encephalopathy Is this a current diagnosis for this admission?: Yes (7) Type II diabetes mellitus Qualifiers: Diabetes mellitus terminologist insulin use: without shelter use Diabetes mellitus complication status: with kidney complications Diabetes mellitus complication detail: with chronic kidney disease (8) stage I decubitus buttocks Is this a current diagnosis for this admission?: Yes (9) stage I decubitus right heel Is this a current diagnosis for this admission?: Yes - Time Time Spent: 50 to 70 Minutes - Inpatient Certification Medical Necessity: Significant Comorbidiites Make Outpatient Treatment Too Risky , Need Close Monitoring Due to Risk of Patient Decompensation, Need for IV Antibiotics, Risk of Complication if Not Cared For in Hospital, Risk of Diagnosis Which Will Require Inpatient Eval/Care/Monitoring - Plan Summary Plan Summary: 1. The patient [place] be [place] the [place] [facility] [place] 2. We will continue the patient's DNR status. 3. For the fever and tachycardia the patient will require intravenous fluids. The tachycardia is likely secondary to the fever. 4. The patient's tachycardia and fever are most likely secondary to acute aspiration. We will place the patient on Zosyn. We will continue oxygen for hypoxemic respiratory failure. 4. We will continue sliding scale insulin as needed for type 2 diabetes. 5. We will monitor the patient's skin for recurrence or persistence of the stage I decubitus ulcers that were present in June. 6. The patient has acute on chronic kidney disease. Last time he was here his creatinine was 3.28 and came down to 1.63. He has had a slight increase in his creatinine which is likely from dehydration. He will get fluids tonight. We will repeat his labs in the morning. 7. The patient's mental status should improve with the above treatments. I will also be vigilant to look for other sources of infection since the patient' s chest x-ray is clear, E. U. Urinary tract infection. Blood cultures have been drawn.
[2017-08-08] MEDS ORDERED: DEXTROSE 40% GEL 15 GM TUBE PO PRN ×4 (16:39→17:37)
[2017-08-08] MEDS ORDERED: DEXTROSE 50%-WATER 25 GM/50 ML DISP.SYRIN IV PRN ×4 (16:39→17:37)
[2017-08-08] MEDS ORDERED: ALBUTEROL SULFATE 0.083% NEB 2.5 MG/3 ML AMPUL NEB PRN (16:39)
[2017-08-08] MEDS ORDERED: GLUCAGON,HUMAN RECOMB 1 MG INJ SUBCUT PRN (16:39)
[2017-08-08] MEDS ORDERED: IPRATROPIUM/ALBUTEROL 0.5-2.5 MG/3 ML AMPUL NEB ONE (17:15)
[2017-08-08] MEDS ORDERED: ACETAMINOPHEN 325 MG TABLET PO PRN (17:35)
[2017-08-08] MEDS ORDERED: GLUCAGON,HUMAN RECOMB 1 MG INJ IM PRN (17:37)
[2017-08-08] MEDS ORDERED: BISACODYL 5 MG TABEC PO PRN (17:38)
[2017-08-08] MEDS ORDERED: PIPERACILLIN SODIUM/TAZOBACTAM 2.25 GM in NORMAL SALINE 100 ML IV SCH (18:00)
[2017-08-08] MEDS: IPRATROPIUM/ALBUTEROL 0.5-2.5 MG/3 ML AMPUL NEB SCH (19:31)
--- NOTE | 2017-08-08 21:10 | EKG REPORT ---
SEVERITY:- ABNORMAL ECG - SINUS TACHYCARDIA NONSPECIFIC T ABNORMALITIES, DIFFUSE LEADS : Confirmed by: Octavia Berry 08-Aug-2017 21:10:24
[2017-08-08] MEDS: DOCUSATE SODIUM 100 MG CAPSULE PO SCH (21:44)
[2017-08-08] MEDS: FAMOTIDINE INJ/PF 20 MG/2 ML SDV IV SCH (21:46)
[2017-08-08] MEDS: PIPERACILLIN SODIUM/TAZOBACTAM 2.25 GM in NORMAL SALINE 100 ML IV SCH (21:48)
[2017-08-08] MEDS: DEXTROSE 5%-1/2 NORMAL SALINE 1,000 ML IV PRN (21:51)
[2017-08-08] MEDS ORDERED: CEFEPIME 1 GM/D5W RTU 1 GM/50 ML RTUPB IV SCH (22:00)
[2017-08-09] MEDS ORDERED: PIPERACILLIN SODIUM/TAZOBACTAM 2.25 GM in NORMAL SALINE 100 ML IV SCH ×2
[2017-08-09] MEDS: IPRATROPIUM/ALBUTEROL 0.5-2.5 MG/3 ML AMPUL NEB SCH ×4 (01:50→20:32)
[2017-08-09] MEDS: PIPERACILLIN SODIUM/TAZOBACTAM 2.25 GM in NORMAL SALINE 100 ML IV SCH ×4 (02:26→18:01)
[2017-08-09 05:40] LABS: HEMATOCRIT 32.3 % (37.9-51.0); HEMOGLOBIN 10.8 g/dL (13.5-17.0); MEAN CORPUSCULAR HEMOGLOBIN 28.7 pg (27.0-33.4); MEAN CORPUSCULAR HGB CONC 33.5 g/dL (32.0-36.0); MEAN CORPUSCULAR VOLUME 86 fl (80-97); PLATELET COUNT 224 10^3/uL (150-450); RED BLOOD COUNT 3.77 10^6/uL (4.35-5.55); RED CELL DISTRIBUTION WIDTH 13.7 % (11.5-14.0); WHITE BLOOD COUNT 10.6 10^3/uL (4.0-10.5)
[2017-08-09 05:55] LABS: ANION GAP 11 (5-19); BLOOD UREA NITROGEN 36 mg/dL (7-20); CALCIUM 8.9 mg/dL (8.4-10.2); CARBON DIOXIDE 25 mmol/L (22-30); CHLORIDE 101 mmol/L (98-107); GLUCOSE 263 mg/dL (75-110); POTASSIUM 3.8 mmol/L (3.6-5.0); SODIUM 137.3 mmol/L (137-145)
[2017-08-09 06:35] LABS: ABSOLUTE LYMPHOCYTES# (MANUAL) 0.2 10^3/uL (0.5-4.7); ABSOLUTE NEUTROPHILS# (MANUAL) 9.4 10^3/uL (1.7-8.2); BASOPHILS % (MANUAL) 0 % (0-2); EOSINOPHILS % (MANUAL) 0 % (0-6); LYMPHOCYTES % (MANUAL) 2 % (13-45); MONOCYTES % (MANUAL) 9 % (3-13); MYELOCYTES % (MANUAL) 1 % (0); SEGMENTED NEUTROPHILS % (MAN) 68 % (42-78); TOTAL CELLS COUNTED 100
[2017-08-09] MEDS: INSULIN LISPRO 100 UNIT/ML 3 ML VIAL SUBCUT PRN ×2 (06:35→22:29)
[2017-08-09] MEDS: DEXTROSE 5%-1/2 NORMAL SALINE 1,000 ML IV PRN ×2 (06:35→18:03)
[2017-08-09 06:36] LABS: TOXIC VACUOLATION PRESENT
[2017-08-09 06:37] LABS: PLATELET COMMENT ADEQUATE; RBC MORPHOLOGY COMMENT NORMO-CYTIC/CHROMIC
[2017-08-09 06:39] LABS: BAND NEUTROPHILS % (MANUAL) 20 % (3-5)
[2017-08-09] MEDS ORDERED: CYCLOBENZAPRINE HCL 10 MG TABLET PO PRN (07:30)
[2017-08-09] MEDS: MAGNESIUM OXIDE 400 MG TABLET PO SCH ×2 (11:38→18:01)
[2017-08-09] MEDS: METOPROLOL SUCCINATE 25 MG TAB.SR.24H PO SCH (11:38)
[2017-08-09] MEDS: CITALOPRAM HYDROBROMIDE 20 MG TABLET PO SCH (11:39)
[2017-08-09] MEDS: CLOPIDOGREL BISULFATE 75 MG TABLET PO SCH (11:39)
[2017-08-09] MEDS: FUROSEMIDE 20 MG TABLET PO SCH (11:39)
[2017-08-09] MEDS: TAMSULOSIN HCL 0.4 MG CAP.SR.24H PO SCH (11:39)
[2017-08-09] MEDS: FAMOTIDINE INJ/PF 20 MG/2 ML SDV IV SCH ×2 (11:40→22:30)
[2017-08-09] MEDS: PENTOXIFYLLINE 400 MG TABLET.SA PO SCH ×2 (11:40→22:30)
[2017-08-09] MEDS: ENOXAPARIN SODIUM INJ 30 MG/0.3 ML DISP.SYRIN SUBCUT SCH (11:41)
[2017-08-09] MEDS: DOCUSATE SODIUM 100 MG CAPSULE PO SCH ×2 (11:41→17:51)
[2017-08-09] MEDS: GABAPENTIN 300 MG CAPSULE PO SCH ×2 (11:43→18:00)
--- NOTE | 2017-08-09 12:03 | PDOC PROGRESS REPORT ---
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 In any event the patient does have a history of aspiration. He presented with an acute febrile illness yesterday. While his chest x-ray was clear his clinical history is most compatible with an acute aspiration event. He was placed on Zosyn and admitted to the hospital. His tachycardia has improved and his fever is coming down as well. Reason For Visit: PNEUMONIA Physical Exam Vital Signs: Temp Pulse Resp BP Pulse Ox 100.3 F 105 H 16 127/63 H 96 08/09/17 03:34 08/09/17 08:03 08/09/17 08:03 08/09/17 03:34 08/09/17 08:03 Intake & Output 08/08/17 08/09/17 08/10/17 06:59 06:59 07:59 Intake Total 1950 Balance 1950 Weight 76.2 kg Additional comments: Patient is more appropriate today. He knows that he is in the hospital. He knows why he is here. His facial appearance is unremarkable. His lungs are actually clear at this time. His cardiac exam is regular without murmurs, gallops or rubs. The abdomen is slightly protuberant but less so than yesterday. He does not have any tympany today. Bowel sounds are present. He does not have guarding or rebound noted and there are no hernias or masses present. The lower extremities are unremarkable. We did check his skin exam today there is no evidence of any decubitus ulcers. During the June admission the ulcers were present. Results Laboratory Results: 08/09/17 04:29 08/09/17 04:29 08/09/17 08/09/17 04:29 04:29 WBC 10.6 H RBC 3.77 L Hgb 10.8 L Hct 32.3 L MCV 86 MCH 28.7 MCHC 33.5 RDW 13.7 Plt Count 224 Seg Neutrophils % Not Reportable Lymphocytes % Not Reportable Monocytes % Not Reportable Eosinophils % Not Reportable Basophils % Not Reportable Absolute Neutrophils Not Reportable Absolute Lymphocytes Not Reportable Absolute Monocytes Not Reportable Absolute Eosinophils Not Reportable Absolute Basophils Not Reportable Sodium 137.3 Potassium 3.8 Chloride 101 Carbon Dioxide 25 Anion Gap 11 BUN 36 H Creatinine 1.76 H Est GFR ( Amer) 47 L Est GFR (Non-Af Amer) 39 L Glucose 263 H Calcium 8.9 Magnesium 1.6 Impressions: Chest X-Ray 08/08/17 12:55 IMPRESSION: Chronic lung changes with no acute cardiopulmonary disease. Assessment & Plan - Diagnosis (1) Fever Is this a current diagnosis for this admission?: Yes Plan: Resolving (2) Sinus tachycardia Is this a current diagnosis for this admission?: Yes Plan: Resolving (3) Acute renal failure superimposed on stage 3 chronic kidney disease Qualifiers: Acute renal failure type: with acute tubular necrosis Qualified Code(s): N17.0 - Acute kidney failure with tubular necrosis; N18.3 - Chronic kidney disease, stage 3 (moderate); N18.3 - Chronic kidney disease, stage 3 (moderate) Is this a current diagnosis for this admission?: Yes Plan: Creatinine has improved significantly overnight. (4) Acute respiratory failure Plan: Resolving. (5) Aspiration pneumonia Is this a current diagnosis for this admission?: Yes Plan: Clinically resolving. (6) Metabolic encephalopathy Is this a current diagnosis for this admission?: Yes Plan: Greatly improved. (7) Type II diabetes mellitus Qualifiers: Diabetes mellitus long term care pharmacist insulin use: without long term care pharmacist use Diabetes mellitus complication status: with kidney complications Diabetes mellitus complication detail: with chronic kidney disease Is this a current diagnosis for this admission?: Yes Plan: Continue sliding scale insulin. (8) stage I decubitus buttocks Is this a current diagnosis for this admission?: Yes Plan: Resolved. (9) stage I decubitus right heel Is this a current diagnosis for this admission?: Yes Plan: Resolved. - Time Time Spent with patient: 15-24 minutes - Inpatient Certification Medical Necessity: Need Close Monitoring Due to Risk of Patient Decompensation, Need for IV Antibiotics
[2017-08-09] MEDS ORDERED: (PENDING PHARMACY ID) (Buspirone Hcl [Buspar 30 Mg Tablet] 30 MG) PO SCH (14:00)
[2017-08-09] MEDS: BUSPIRONE HCL 10 MG TABLET PO SCH ×2 (14:57→22:30)
[2017-08-09] MEDS: LANSOPRAZOLE 30 MG TAB.RAP.DR PO SCH (17:51)
[2017-08-10] MEDS: GABAPENTIN 300 MG CAPSULE PO SCH ×5 (00:06→23:07)
[2017-08-10] MEDS: PIPERACILLIN SODIUM/TAZOBACTAM 2.25 GM in NORMAL SALINE 100 ML IV SCH ×5 (00:06→23:07)
[2017-08-10] MEDS: BUSPIRONE HCL 10 MG TABLET PO SCH ×3 (06:09→21:13)
[2017-08-10] MEDS: LANSOPRAZOLE 30 MG TAB.RAP.DR PO SCH ×2 (06:10→18:16)
[2017-08-10 06:15] LABS: ANION GAP 14 (5-19); BLOOD UREA NITROGEN 38 mg/dL (7-20); CALCIUM 8.4 mg/dL (8.4-10.2); CARBON DIOXIDE 24 mmol/L (22-30); CHLORIDE 99 mmol/L (98-107); GLUCOSE 147 mg/dL (75-110); POTASSIUM 3.3 mmol/L (3.6-5.0)
[2017-08-10] MEDS ORDERED: POTASSIUM CHLORIDE 10 MEQ TABLET.SA PO ONE (07:33)
[2017-08-10] MEDS: PENTOXIFYLLINE 400 MG TABLET.SA PO SCH ×2 (07:48→21:14)
[2017-08-10] MEDS: FAMOTIDINE INJ/PF 20 MG/2 ML SDV IV SCH ×2 (07:49→21:13)
[2017-08-10] MEDS: METOPROLOL SUCCINATE 25 MG TAB.SR.24H PO SCH (07:49)
[2017-08-10] MEDS: FUROSEMIDE 20 MG TABLET PO SCH (07:49)
[2017-08-10] MEDS: CITALOPRAM HYDROBROMIDE 20 MG TABLET PO SCH (07:49)
[2017-08-10] MEDS: MAGNESIUM OXIDE 400 MG TABLET PO SCH ×2 (07:50→18:11)
[2017-08-10] MEDS: OXYCODONE-ACETAMINOPHEN 5-325 MG TABLET PO PRN ×2 (07:50→23:11)
[2017-08-10] MEDS: TAMSULOSIN HCL 0.4 MG CAP.SR.24H PO SCH (07:50)
[2017-08-10] MEDS: IPRATROPIUM/ALBUTEROL 0.5-2.5 MG/3 ML AMPUL NEB SCH ×3 (07:50→20:10)
[2017-08-10] MEDS: ENOXAPARIN SODIUM INJ 30 MG/0.3 ML DISP.SYRIN SUBCUT SCH (07:51)
[2017-08-10] MEDS: CLOPIDOGREL BISULFATE 75 MG TABLET PO SCH (07:51)
[2017-08-10] MEDS: DOCUSATE SODIUM 100 MG CAPSULE PO SCH ×2 (07:56→18:16)
--- NOTE | 2017-08-10 12:29 | PDOC PROGRESS REPORT ---
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 In any event the patient does have a history of aspiration. He presented with an acute febrile illness. While his chest x-ray was clear his clinical history is most compatible with an acute aspiration event. He was placed on Zosyn and admitted to the hospital. His tachycardia has improved and his fever is coming down as well. Today, the patient seemed more confused than yesterday. He is noted to be extremely weak. He is unable to feed himself. When the patient was previously admitted to the hospital in June he had evidence of a decubitus ulcer on the heel and on his buttock. These are resolved. They were not present on this admission. Reason For Visit: PNEUMONIA Physical Exam Vital Signs: Temp Pulse Resp BP Pulse Ox 98.7 F 96 14 105/58 L 92 08/10/17 03:18 08/10/17 07:50 08/10/17 07:50 08/10/17 03:18 08/10/17 07:50 Intake & Output 08/09/17 08/10/17 08/11/17 05:59 06:59 06:59 Intake Total Output Total Balance Weight Additional comments: The patient's appearance is unchanged from yesterday. He is alert to person and place. His facial appearance is unremarkable. His lungs are clear both anteriorly and posteriorly. His cardiac exam is regular without murmurs, gallops or rubs. The abdomen is soft, flat and benign. Bowel sounds are present in the lower quadrants. He does not have guarding or rebound noted and there are no hernias or masses present. The lower extremities are unremarkable. Skin is warm, dry and intact without lesions or rashes. Results Laboratory Results: 08/09/17 04:29 08/10/17 04:39 08/10/17 04:39 Sodium 137.0 Potassium 3.3 L Chloride 99 Carbon Dioxide 24 Anion Gap 14 BUN 38 H Creatinine 1.96 H Est GFR ( Amer) 41 L Est GFR (Non-Af Amer) 34 L Glucose 147 H Calcium 8.4 Magnesium 2.1 Impressions: Chest X-Ray 08/08/17 12:55 IMPRESSION: Chronic lung changes with no acute cardiopulmonary disease. Assessment & Plan - Diagnosis (1) Fever Is this a current diagnosis for this admission?: Yes Plan: Resolved (2) Sinus tachycardia Is this a current diagnosis for this admission?: Yes Plan: Resolved (3) Acute renal failure superimposed on stage 3 chronic kidney disease Qualifiers: Acute renal failure type: with acute tubular necrosis Qualified Code(s): N17.0 - Acute kidney failure with tubular necrosis; N18.3 - Chronic kidney disease, stage 3 (moderate); N18.3 - Chronic kidney disease, stage 3 (moderate) Is this a current diagnosis for this admission?: Yes Plan: Overall, stable (4) Acute respiratory failure Plan: Clinically resolving (5) Aspiration pneumonia Is this a current diagnosis for this admission?: Yes Plan: Sputum culture is showing gram-positive cocci in clusters. Therefore, I have added vancomycin today. Speech therapy has been ordered. (6) Metabolic encephalopathy Is this a current diagnosis for this admission?: Yes Plan: According to family, patient is more confused than we initially thought. We are going to have the patient evaluated by PT, and OT. He may require either placement or additional services at home. 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 (8) stage I decubitus buttocks Is this a current diagnosis for this admission?: No Plan: Resolved. (9) stage I decubitus right heel Is this a current diagnosis for this admission?: No Plan: Resolved. - Time Time Spent with patient: 25-34 minutes - Inpatient Certification Medical Necessity: Need for IV Antibiotics - Plan Summary Plan Summary: Clinically, the patient is improving. However, he does appear to have significant cognitive abnormalities. Also, he has significant weakness. He will be evaluated by physical therapy, Occupational Therapy and speech therapy. He would likely benefit from short-term placement to rehab, but according to family this did not lead to improvement in the past. We may need to arrange this for home health.
[2017-08-10] MEDS ORDERED: VANCOMYCIN HCL 0 MG in DEXTROSE 5%-WATER 250 ML IV NR (12:30)
[2017-08-10] MEDS: VANCOMYCIN HCL 1,000 MG in DEXTROSE 5%-WATER 250 ML IV SCH (15:30)
[2017-08-10] MEDS: INSULIN LISPRO 100 UNIT/ML 3 ML VIAL SUBCUT PRN (18:11)
[2017-08-11] MEDS: IPRATROPIUM/ALBUTEROL 0.5-2.5 MG/3 ML AMPUL NEB SCH ×4 (02:03→19:30)
[2017-08-11] MEDS: DEXTROSE 5%-1/2 NORMAL SALINE 1,000 ML IV PRN (02:18)
[2017-08-11 06:05] LABS: ANION GAP 13 (5-19); BLOOD UREA NITROGEN 27 mg/dL (7-20); CALCIUM 7.2 mg/dL (8.4-10.2); CARBON DIOXIDE 21 mmol/L (22-30); CHLORIDE 102 mmol/L (98-107); SODIUM 136.2 mmol/L (137-145)
[2017-08-11 06:27] LABS: GLUCOSE 597 mg/dL (75-110); POTASSIUM 2.9 mmol/L (3.6-5.0)
[2017-08-11] MEDS: GABAPENTIN 300 MG CAPSULE PO SCH ×4 (06:41→23:53)
[2017-08-11] MEDS: BUSPIRONE HCL 10 MG TABLET PO SCH ×3 (06:42→21:49)
[2017-08-11] MEDS: LANSOPRAZOLE 30 MG TAB.RAP.DR PO SCH ×2 (06:42→20:25)
[2017-08-11] MEDS: PIPERACILLIN SODIUM/TAZOBACTAM 2.25 GM in NORMAL SALINE 100 ML IV SCH ×3 (06:43→20:24)
[2017-08-11] MEDS ORDERED: NORMAL SALINE 1000 ML 1,000 ML IV PRN (07:25)
[2017-08-11] MEDS ORDERED: POTASSIUM CHLORIDE 10 MEQ TABLET.SA PO ONE (08:00)
[2017-08-11] MEDS: POTASSI CL 20 MEQ/50 ML RIDER 20 MEQ/50 ML RTUPB IV SCH ×2 (08:24→11:38)
[2017-08-11] MEDS ORDERED: OXYCODONE-ACETAMINOPHEN 5-325 MG TABLET PO PRN (10:33)
[2017-08-11] MEDS: METOPROLOL SUCCINATE 25 MG TAB.SR.24H PO SCH (11:39)
[2017-08-11] MEDS: TAMSULOSIN HCL 0.4 MG CAP.SR.24H PO SCH (11:40)
[2017-08-11] MEDS: PENTOXIFYLLINE 400 MG TABLET.SA PO SCH ×2 (11:40→21:49)
[2017-08-11] MEDS: MAGNESIUM OXIDE 400 MG TABLET PO SCH ×2 (11:41→20:25)
[2017-08-11] MEDS: FUROSEMIDE 20 MG TABLET PO SCH (11:42)
[2017-08-11] MEDS: CITALOPRAM HYDROBROMIDE 20 MG TABLET PO SCH (11:43)
[2017-08-11] MEDS: FAMOTIDINE INJ/PF 20 MG/2 ML SDV IV SCH ×2 (11:43→21:58)
[2017-08-11] MEDS: CLOPIDOGREL BISULFATE 75 MG TABLET PO SCH (11:43)
[2017-08-11] MEDS: ENOXAPARIN SODIUM INJ 30 MG/0.3 ML DISP.SYRIN SUBCUT SCH (11:52)
[2017-08-11] MEDS: DOCUSATE SODIUM 100 MG CAPSULE PO SCH ×2 (11:53→18:49)
[2017-08-11] MEDS ORDERED: LORAZEPAM 1 MG TABLET PO PRN (12:48)
--- NOTE | 2017-08-11 13:26 | PDOC PROGRESS REPORT ---
Subjective Progress Note for:: 08/11/17 Subjective:: The patient is a 67-year-old male with a history of dysphasia secondary to previous stroke as well as history of head and neck cancer for which he received radiation and has subsequent anatomical changes resulting in aspiration and aspiration pneumonias. The patient was admitted on 08/08/17 for tachycardia and hypoxia presumed to be aspiration pneumonia. The patient is seen on morning rounds. He is found resting in bed comfortably on room air. He is conversational and speaks full sentences without dyspnea. He does report an increase in his sputum production. He denies dyspnea, chest pain, palpitations, fever and chills at present. Nursing reports increased confusion and agitation. Reportedly the patient is attempting to get out of bed frequently without assistance and is at risk for falls and so now has a sitter in place. Reason For Visit: PNEUMONIA Physical Exam Vital Signs: Temp Pulse Resp BP Pulse Ox 98.8 F 89 16 151/82 H 95 08/11/17 07:49 08/11/17 07:54 08/11/17 07:54 08/11/17 07:49 08/11/17 07:54 Intake & Output 08/10/17 08/11/17 08/12/17 06:59 06:59 06:59 Intake Total 2785 Output Total 975 Balance 1810 Weight 71 kg General appearance: PRESENT: no acute distress, well-developed, well-nourished Head exam: PRESENT: atraumatic, normocephalic Eye exam: PRESENT: conjunctiva pink, EOMI, PERRLA. ABSENT: scleral icterus Ear exam: PRESENT: normal external ear exam Mouth exam: PRESENT: moist, tongue midline Neck exam: ABSENT: carotid bruit, JVD, lymphadenopathy, thyromegaly Respiratory exam: PRESENT: rhonchi, symmetrical, unlabored. ABSENT: rales, wheezes Cardiovascular exam: PRESENT: RRR, +S1, +S2. ABSENT: diastolic murmur, rubs, systolic murmur Pulses: PRESENT: normal dorsalis pedis pul Vascular exam: PRESENT: normal capillary refill GI/Abdominal exam: PRESENT: normal bowel sounds, soft. ABSENT: distended, guarding, mass, organolmegaly, rebound, tenderness Rectal exam: PRESENT: deferred Extremities exam: PRESENT: full ROM. ABSENT: calf tenderness, clubbing, pedal edema Neurological exam: PRESENT: alert, awake, oriented to person, oriented to place , oriented to time, oriented to situation, CN II-XII grossly intact. ABSENT: motor sensory deficit Psychiatric exam: PRESENT: appropriate affect, normal mood. ABSENT: homicidal ideation, suicidal ideation Skin exam: PRESENT: dry, intact, warm. ABSENT: cyanosis, rash Results Laboratory Results: 08/09/17 04:29 08/11/17 04:05 08/11/17 04:05 Sodium 136.2 L Potassium 2.9 L* Chloride 102 Carbon Dioxide 21 L Anion Gap 13 BUN 27 H Creatinine 1.49 H Est GFR ( Amer) 57 L Est GFR (Non-Af Amer) 47 L Glucose 597 H* Calcium 7.2 L Magnesium 2.2 08/09/17 10:03 Sputum Gram Stain - Final 08/09/17 10:03 Sputum Sputum Culture - Final Mrsa (Meth Resis Staph Aureus) Normal Anika Absent Impressions: Chest X-Ray 08/08/17 12:55 IMPRESSION: Chronic lung changes with no acute cardiopulmonary disease. Assessment & Plan - Diagnosis (1) Fever Is this a current diagnosis for this admission?: Yes Plan: Resolved. (2) Sinus tachycardia Is this a current diagnosis for this admission?: Yes Plan: Resolved. (3) Acute renal failure superimposed on stage 3 chronic kidney disease Qualifiers: Acute renal failure type: with acute tubular necrosis Qualified Code(s): N17.0 - Acute kidney failure with tubular necrosis; N18.3 - Chronic kidney disease, stage 3 (moderate); N18.3 - Chronic kidney disease, stage 3 (moderate) Is this a current diagnosis for this admission?: Yes Plan: Improved; creatinine is trending downwards. We will avoid nephrotoxic medications; pharmacy to dose vancomycin. We will monitor with daily chemistries. (4) Acute respiratory failure Qualifiers: Respiratory failure complication: hypoxia Qualified Code(s): J96.01 - Acute respiratory failure with hypoxia Is this a current diagnosis for this admission?: Yes Plan: Improving; patient is now maintaining oxygen saturations while on room air without dyspnea. (5) Aspiration pneumonia Is this a current diagnosis for this admission?: Yes Plan: Sputum culture is positive for MRSA. Blood cultures: No growth at 48 hours. We will continue Zosyn and vancomycin. The patient has refused swallow eval stating that he has had several eval is in the past with recommendations for a pured diet with thickened liquids. The patient fully acknowledges that this increases risk of aspiration and potential fatal pneumonia as a result of continued eating a regular diet. Aspiration precautions. (6) Metabolic encephalopathy Is this a current diagnosis for this admission?: Yes Plan: According to family and nursing staff, the patient needs to be confused. Although, he appeared to be quite lucid during our meeting today. He does have a history of alcohol dependence which raises the possibility of potential withdrawal symptoms. Will add Ativan 1 mg p.o. every 6 hours as needed anxiety or agitation. PT/OT have been ordered. Fall precautions are in place. The patient does have a sitter for safety (7) Type II diabetes mellitus Qualifiers: Diabetes mellitus penitentiary insulin use: without penitentiary use Diabetes mellitus complication status: with kidney complications Diabetes mellitus complication detail: with chronic kidney disease Chronic kidney disease stage : stage 3 (moderate) Qualified Code(s): E11.22 - Type 2 diabetes mellitus with diabetic chronic kidney disease; N18.3 - Chronic kidney disease, stage 3 ( moderate); N18.3 - Chronic kidney disease, stage 3 (moderate) Is this a current diagnosis for this admission?: Yes Plan: Accu-Cheks before meals and at bedtime with Humalog for sliding scale coverage. (8) stage I decubitus buttocks Is this a current diagnosis for this admission?: No Plan: Resolved (9) stage I decubitus right heel Is this a current diagnosis for this admission?: No Plan: Resolved (10) Dysphagia Is this a current diagnosis for this admission?: Yes Plan: Will advance to a pured with thickened liquid diets per patient's self-report of previous swallow evaluation studies. He adamantly declines to repeat the swallow evaluation today. - Time Time Spent with patient: 25-34 minutes Medications reviewed and adjusted accordingly: Yes
[2017-08-11 15:00] LABS: PATH REVIEW PATHOLOGIST REVIEWED
[2017-08-11] MEDS ORDERED: HALOPERIDOL LACTATE INJ 5 MG/1 ML VIAL IM ONE (16:00)
[2017-08-11] MEDS ORDERED: POTASSIUM CHLORIDE 20 MEQ/50 ML RTU IV ONE ×2 (16:00→21:30)
[2017-08-11] MEDS ORDERED: DIAZEPAM 5 MG TABLET PO PRN (16:10)
[2017-08-11] MEDS: DIAZEPAM 5 MG TABLET PO SCH ×2 (20:25→23:53)
[2017-08-11] MEDS: VANCOMYCIN HCL 1,000 MG in DEXTROSE 5%-WATER 250 ML IV SCH (21:58)
[2017-08-11] MEDS: LORAZEPAM INJ 2 MG/1 ML VIAL IV PRN (23:46)
[2017-08-12] MEDS: IPRATROPIUM/ALBUTEROL 0.5-2.5 MG/3 ML AMPUL NEB SCH ×4 (01:45→20:01)
[2017-08-12] MEDS: PIPERACILLIN SODIUM/TAZOBACTAM 2.25 GM in NORMAL SALINE 100 ML IV SCH ×2 (02:02→05:30)
[2017-08-12] MEDS: LORAZEPAM INJ 2 MG/1 ML VIAL IV PRN ×2 (03:55→08:10)
[2017-08-12] MEDS: DIAZEPAM 5 MG TABLET PO SCH (05:21)
[2017-08-12] MEDS: GABAPENTIN 300 MG CAPSULE PO SCH (05:21)
[2017-08-12] MEDS: LANSOPRAZOLE 30 MG TAB.RAP.DR PO SCH (05:21)
[2017-08-12] MEDS: BUSPIRONE HCL 10 MG TABLET PO SCH (05:21)
[2017-08-12 06:44] LABS: ALANINE AMINOTRANSFERASE 40 U/L (21-72); ALBUMIN 4.1 g/dL (3.5-5.0); ALKALINE PHOSPHATASE 134 U/L (38-126); ANION GAP 17 (5-19); ASPARTATE AMINO TRANSFERASE 54 U/L (17-59); BILIRUBIN,DIRECT 0.8 mg/dL (0.0-0.4); BILIRUBIN,TOTAL 1.1 mg/dL (0.2-1.3); BLOOD UREA NITROGEN 23 mg/dL (7-20); CALCIUM 9.5 mg/dL (8.4-10.2); CARBON DIOXIDE 19 mmol/L (22-30); CHLORIDE 110 mmol/L (98-107); GLUCOSE 231 mg/dL (75-110); POTASSIUM 4.3 mmol/L (3.6-5.0); SODIUM 146.3 mmol/L (137-145); TOTAL PROTEIN 8.5 g/dL (6.3-8.2)
[2017-08-12 06:48] LABS: HEMATOCRIT 38.9 % (37.9-51.0); HEMOGLOBIN 12.6 g/dL (13.5-17.0); MEAN CORPUSCULAR HEMOGLOBIN 27.9 pg (27.0-33.4); MEAN CORPUSCULAR HGB CONC 32.5 g/dL (32.0-36.0); MEAN CORPUSCULAR VOLUME 86 fl (80-97); PLATELET COUNT 307 10^3/uL (150-450); RED BLOOD COUNT 4.52 10^6/uL (4.35-5.55); RED CELL DISTRIBUTION WIDTH 14.4 % (11.5-14.0); WHITE BLOOD COUNT 22.7 10^3/uL (4.0-10.5)
[2017-08-12] MEDS ORDERED: FUROSEMIDE INJ/PF 40 MG/4 ML SDV ONE (09:27)
[2017-08-12] MEDS ORDERED: LORAZEPAM INJ 2 MG/1 ML VIAL ONE (09:27)
[2017-08-12] MEDS ORDERED: NITROGLYCERIN 2% OINTMENT 1 GM PACKET ONE (09:28)
[2017-08-12] MEDS ORDERED: HALOPERIDOL LACTATE INJ 5 MG/1 ML VIAL ONE (09:41)
[2017-08-12] MEDS ORDERED: FUROSEMIDE INJ/PF 20 MG/2 ML SDV IV ONE (10:00)
[2017-08-12] MEDS ORDERED: NITROGLYCERIN 2% OINTMENT 1 GM PACKET TP ONE (10:00)
--- NOTE | 2017-08-12 10:00 | RADIOLOGY REPORT (SQ) ---
EXAM DESCRIPTION: CHEST SINGLE VIEW COMPLETED DATE/TIME: 08/12/2017 9:51 am REASON FOR STUDY: aspiration, tachypnea COMPARISON: None. EXAM PARAMETERS: NUMBER OF VIEWS: One view. TECHNIQUE: Single frontal radiographic view of the chest acquired. RADIATION DOSE: NA LIMITATIONS: None. FINDINGS: LUNGS AND PLEURA: Increasing perihilar airspace disease. Increasing density in the right upper lobe. MEDIASTINUM AND HILAR STRUCTURES: No masses. Contour normal. HEART AND VASCULAR STRUCTURES: Cardiomegaly. BONES: No acute findings. HARDWARE: Sternotomy wires. OTHER: No other significant finding. IMPRESSION: INCREASING PERIHILAR AIRSPACE DISEASE AND RIGHT UPPER LOBE AIRSPACE DISEASE. SUSPECT PN EUMONIA ALTHOUGH THERE MAY ALSO BE A COMPONENT OF CENTRAL PULMONARY EDEMA. TECHNICAL DOCUMENTATION: JOB ID: [id number] [employer]- All Rights Reserved Reading location - IP/workstation name: [email or web address]
--- NOTE | 2017-08-12 10:23 | PDOC PROGRESS REPORT ---
Subjective Progress Note for:: 08/12/17 Subjective:: I was notified by the nursing staff this morning that the patient was having respiratory distress. When I went to see the patient he was acutely encephalopathic and combative. He was in three-point restraints and his respiratory rates were in the upper 30s. I quickly called Dr. Rosales who saw the patient with me. A review of systems cannot be obtained from the patient. Family members at the bedside state that he started having issues yesterday. They state that he is usually quite easy to get along with and that this is a dramatic change in his mental status. Yesterday the physician that saw him believe that he was going through alcohol withdrawal. The patient when he was alert and oriented stated that he had been drinking and that his last drink was on Friday. He indicated that he had been drinking quite a bit. He lives with his sister and her . Her is the healthcare power of state's attorney and works in law enforcement. They have a zero tolerance for alcohol policy in their home. That is the condition of him living in their home. They state that the patient is usually in the home at least 16-18 hours a day. He occasionally goes out but they have seen no sign that he is using alcohol. They have never seen him altered and have never smelled alcohol on him or seen any signs of ongoing alcohol use. He was an alcoholic in the past and they state that he occasionally drinks nonalcoholic beer because he likes the taste. Family members are quite frustrated that the provider's yesterday felt like he was going through alcohol withdrawal. The patient is being urgently transferred to the ICU. We have had a difficult time obtaining any sort of lab work or blood gas on the patient as he has been so combative. He is received 1 mg of Ativan as well as 5 mg of Haldol. He currently is on BiPAP with respiratory rates in the 40s. Respiratory therapy is now trying to get a blood gas. Reason For Visit: PNEUMONIA Physical Exam Vital Signs: Temp Pulse Resp BP Pulse Ox 97.6 F 131 H 37 H 143/100 H 96 08/12/17 07:38 08/12/17 07:38 08/12/17 07:38 08/12/17 07:38 08/12/17 07:38 Intake & Output 08/11/17 08/12/17 08/13/17 06:59 06:59 06:59 Intake Total 2785 1654 Output Total 975 Balance 1810 1654 Weight 71 kg General appearance: PRESENT: disheveled, other - The patient is in acute distress. He is combative and in 4 point restraints by the time I left the room. He currently is on BiPAP. He is extremely pale and clammy. Head exam: PRESENT: atraumatic Mouth exam: PRESENT: moist, tongue midline Respiratory exam: PRESENT: accessory muscle use, tachypnea, other - The patient has coarse breath sounds throughout all lung silva. Respiratory rates ranging from the low 30s-50s. Cardiovascular exam: PRESENT: tachycardia GI/Abdominal exam: PRESENT: soft, other - His abdomen appears to be nontender Rectal exam: PRESENT: deferred Extremities exam: ABSENT: clubbing, pedal edema Neurological exam: PRESENT: awake, other - He is combative and certainly not oriented. Unable to speak. Psychiatric exam: PRESENT: agitated Focused psych exam: PRESENT: psychomotor agitation, restlessness Skin exam: PRESENT: pallor, other - He is somewhat diaphoretic Results Laboratory Results: 08/12/17 06:16 08/12/17 06:16 08/12/17 08/12/17 08/12/17 06:16 06:16 06:16 WBC 22.7 H RBC 4.52 Hgb 12.6 L Hct 38.9 MCV 86 MCH 27.9 MCHC 32.5 RDW 14.4 H Plt Count 307 Sodium 146.3 H Potassium 4.3 Chloride 110 H Carbon Dioxide 19 L Anion Gap 17 BUN 23 H Creatinine 1.64 H Est GFR ( Amer) 51 L Est GFR (Non-Af Amer) 42 L Glucose 231 H Calcium 9.5 Magnesium 2.5 H Total Bilirubin 1.1 AST 54 ALT 40 Alkaline Phosphatase 134 H Ammonia Total Protein 8.5 H Albumin 4.1 08/12/17 06:16 WBC RBC Hgb Hct MCV MCH MCHC RDW Plt Count Sodium Potassium Chloride Carbon Dioxide Anion Gap BUN Creatinine Est GFR ( Amer) Est GFR (Non-Af Amer) Glucose Calcium Magnesium Total Bilirubin AST ALT Alkaline Phosphatase Ammonia < 8.7 L Total Protein Albumin 08/09/17 10:03 Sputum Gram Stain - Final 08/09/17 10:03 Sputum Sputum Culture - Final Mrsa (Meth Resis Staph Aureus) Normal Anika Absent Assessment & Plan - Diagnosis (1) Acute respiratory failure Qualifiers: Respiratory failure complication: unspecified whether with hypoxia or hypercapnia Qualified Code(s): J96.00 - Acute respiratory failure, unspecified whether with hypoxia or hypercapnia Is this a current diagnosis for this admission?: Yes Plan: His respiratory failure is likely multifactorial secondary to possible aspiration pneumonia and possibly a congestive heart failure exacerbation. There is some confusion as to whether the patient uses alcohol but he certainly appears as if he could be going through alcohol withdrawal. Also the patient has a history of coronary artery disease and an NV in the past. I cannot rule out a cardiac source at this point. We are trying to obtain an ABG and get labs. The patient is combative and we are having a difficult time. Certainly he is requiring BiPAP support. He has accessory muscle use and is currently on BiPAP but still has significant tachypnea. On the phone. He is traveling to the hospital but has about an hour drive. He has indicated that for now he would like the patient to be intubated if his respiratory failure worsens. We are going to change his CODE STATUS from a DO NOT RESUSCITATE. He has told family members as well as his healthcare power of state's attorney that he would not want prolonged intubation and he would not want to be kept alive with a ventilator if there was no hope of meaningful recovery. I am going to change his CODE STATUS to a full code. Due to impending respiratory failure he is being transferred to the ICU. (2) Pneumonia Is this a current diagnosis for this admission?: Yes Plan: It was felt that the patient had an aspiration pneumonia at the time for admission of admission. He currently is on IV vancomycin and Zosyn. This is day #4 of treatment. Nursing staff reports that the patient coughed up some sputum last night but then they believe he aspirated on it. Certainly this could be contributing to his respiratory distress. He is on good antibiotics. He has had a significant increase in his white blood cell count but that could be reactive to his respiratory distress. We are repeating labs at this time. (3) Acute exacerbation of congestive heart failure Is this a current diagnosis for this admission?: Yes Plan: We have managed to get a chest x-ray and it looks as if the patient could have some vascular congestion. We are waiting on a BNP. He has received 40 mg of IV Lasix. We are going to get the nursing staff to raise the head of his bed. When the patient stabilizes we will obtain a 2D echocardiogram. He has been receiving IV fluids and I am going to stop those for now. (4) Metabolic encephalopathy Is this a current diagnosis for this admission?: Yes Plan: The patient is acutely encephalopathic. Certainly infection could be an contributing to this. Also with his respiratory rates in the 50s he could have some hypercapnic respiratory failure and CO2 narcosis. Also there is concern that he could be going through alcohol withdrawal. He will continue IV Ativan as he is acutely agitated. We will continue to look for reversible causes of his encephalopathy. Labs and ABG are pending however we have been unable to obtain at the time of this dictation. He is being transferred to the ICU (5) Acute on chronic renal failure Is this a current diagnosis for this admission?: Yes Plan: The patient has been receiving IV fluids. His creatinine did rise somewhat this morning. Has some vascular congestion. Further labs are pending. I am going to hold off on further IV fluid hydration for now. (6) Hypertensive urgency Is this a current diagnosis for this admission?: Yes Plan: Earlier in the hospitalization the patient's blood pressure was recorded at 200/ 126. This had since settled down. However today his blood sugars markedly uncontrolled however not meeting the criteria for hypertensive urgency. We have placed Nitropaste on the patient. We will continue to try and get his blood pressure under better control. We will follow-up with labs. (7) Dysphagia Is this a current diagnosis for this admission?: Yes Plan: Patient with a history of head and neck cancer. Nursing staff states that they witnessed an aspiration event overnight. Certainly his white blood cell count is risen. After he recuperates and stabilizes we may need speech to come back and reevaluate. He was on a regular carbohydrate controlled diet previously. For now we will hold off on feeding him due to his acute agitation. We will make him n.p.o. as he is at high risk of aspirating right the second. (8) Anemia Is this a current diagnosis for this admission?: Yes Plan: He has a mild normocytic anemia consistent with chronic disease. The patient is extremely pale and clammy today. We are repeating a stat CBC as soon as we can get labs. (9) Head and neck cancer Is this a current diagnosis for this admission?: Yes Plan: The patient has a history of head and neck cancer. He has been treated with radiation and chemotherapy in the past. No evidence of recurrence at this point. Certainly it makes his aspiration risk much higher due to his ongoing dysphagia. (10) stage I decubitus buttocks Is this a current diagnosis for this admission?: Yes Plan: Continue local wound care (11) stage I decubitus right heel Is this a current diagnosis for this admission?: Yes Plan: Continue local wound care (12) Diabetes Is this a current diagnosis for this admission?: Yes Plan: Continue sliding-scale coverage. He has uncontrolled blood sugars at this point which could be reactive to his respiratory distress and agitation. (13) Full code status Is this a current diagnosis for this admission?: Yes Plan: Previously listed resuscitate. I spoke to the patient's healthcare power of state's attorney on the phone. He indicated that in this situation he would like to have the patient intubated if his respiratory failure worsens. He would not wish to have prolonged intubation if he did not recuperate but for now he would like for him to be changed to a full code and all aggressive measures including chest compressions, intubation and pressors be utilized if necessary. - Time Time Spent with patient: 35 or more minutes Total Critical Time (Minutes): 60 - Inpatient Certification Based on my medical assessment, after consideration of the patient's comorbidities, presenting symptoms, or acuity I expect that the services needed warrant INPATIENT care.: Yes I certify that my determination is in accordance with my understanding of Medicare's requirements for reasonable and necessary INPATIENT services [42 CFR 412.3e].: Yes Medical Necessity: Need For Continuous Telemetry Monitoring, Other - The patient has acute respiratory failure and is being transferred to the ICU. Currently on BiPAP support but may actually require intubation as the day goes forward. I suspect he will be in the hospital for several more days. He is going to be requiring parenteral therapies and will need quite a bit of ongoing support.
[2017-08-12 10:33] LABS: VENOUS BLOOD BASE EXCESS -4.5 mmol/L; VENOUS BLOOD HCO3 21.8 mmol/L (20-32); VENOUS BLOOD PCO2 44.5 mmHg (35-63); VENOUS BLOOD PH 7.31 (7.30-7.42)
[2017-08-12 10:42] LABS: ARTERIAL BLOOD BASE EXCESS -7.7 mmol/L; ARTERIAL BLOOD FIO2 60%; ARTERIAL BLOOD H2CO3 0.87 mmol/L (1.05-1.35); ARTERIAL BLOOD HCO3 16.3 mmol/L (20-26); ARTERIAL BLOOD O2 SATURATION 93.1 % (94-98); ARTERIAL BLOOD PH 7.37 (7.35-7.45); ARTERIAL BLOOD PO2 66.8 mmHg (80-100); ARTERIAL BLOOD TOTAL CO2 17.2 mmol/L (23-27)
[2017-08-12] MEDS ORDERED: PROPOFOL 100 ML IV ONE ×2 (11:12→14:25)
[2017-08-12] MEDS ORDERED: PHARMACY COMMUNICATION ORDER MC NR ×2 (11:15→11:45)
[2017-08-12] MEDS ORDERED: CYCLOBENZAPRINE HCL 10 MG TABLET NG PRN (11:30)
[2017-08-12] MEDS ORDERED: ACETAMINOPHEN 325 MG TABLET NG PRN (11:30)
[2017-08-12] MEDS ORDERED: NORMAL SALINE 1000 ML 1,000 ML IV PRN (11:34)
[2017-08-12] MEDS ORDERED: MIDAZOLAM HCL 50 MG/100 ML RTUINJ IV ONE ×2 (11:42→17:41)
[2017-08-12] MEDS ORDERED: DIAZEPAM 5 MG TABLET NG SCH (12:00)
[2017-08-12] MEDS ORDERED: OXYCODONE-ACETAMINOPHEN 5-325 MG TABLET NG PRN (12:00)
[2017-08-12] MEDS ORDERED: GABAPENTIN 300 MG CAPSULE NG SCH (12:00)
[2017-08-12 12:55] LABS: HEMATOCRIT 35.3 % (37.9-51.0); HEMOGLOBIN 11.2 g/dL (13.5-17.0); MEAN CORPUSCULAR HEMOGLOBIN 27.5 pg (27.0-33.4); MEAN CORPUSCULAR HGB CONC 31.7 g/dL (32.0-36.0); MEAN CORPUSCULAR VOLUME 87 fl (80-97); PLATELET COUNT 285 10^3/uL (150-450); RED BLOOD COUNT 4.07 10^6/uL (4.35-5.55); RED CELL DISTRIBUTION WIDTH 14.7 % (11.5-14.0); WHITE BLOOD COUNT 19.6 10^3/uL (4.0-10.5)
--- NOTE | 2017-08-12 12:55 | RADIOLOGY REPORT (SQ) ---
EXAM DESCRIPTION: CHEST SINGLE VIEW COMPLETED DATE/TIME: 08/12/2017 11:46 am REASON FOR STUDY: intubation COMPARISON: 08/12/2017 at 0929 hours. EXAM PARAMETERS: NUMBER OF VIEWS: One view. TECHNIQUE: Single frontal radiographic view of the chest acquired. RADIATION DOSE: NA LIMITATIONS: None. FINDINGS: LUNGS AND PLEURA: Extensive bilateral airspace disease. MEDIASTINUM AND HILAR STRUCTURES: No masses. Contour normal. HEART AND VASCULAR STRUCTURES: Heart normal in size. Normal vasculature. BONES: No acute findings. HARDWARE: Endotracheal tube with the tip located 4 cm proximal to the audie. Nasogastric tube with the tip in the stomach. Sternotomy wires. OTHER: No other significant finding. IMPRESSION: INTERVAL PLACEMENT OF ENDOTRACHEAL TUBE AND NASOGASTRIC TUBE. OTHERWISE NO SIGNIFICANT CHANGE. TECHNICAL DOCUMENTATION: JOB ID: [id number] [employer]- All Rights Reserved Reading location - IP/workstation name: [email or web address]
[2017-08-12 12:58] LABS: PROTHROMBIN TIME 14.9 SEC (11.4-15.4)
[2017-08-12 12:59] LABS: PARTIAL THROMBOPLASTIN TIME 31.1 SEC (23.5-35.8)
[2017-08-12 13:07] LABS: ANION GAP 16 (5-19); BLOOD UREA NITROGEN 28 mg/dL (7-20); CARBON DIOXIDE 20 mmol/L (22-30); CHLORIDE 110 mmol/L (98-107); GLUCOSE 256 mg/dL (75-110); POTASSIUM 4.6 mmol/L (3.6-5.0); SODIUM 145.9 mmol/L (137-145)
[2017-08-12 13:37] LABS: ABSOLUTE MONOCYTES # (MANUAL) 1.2 10^3/uL (0.1-1.4); ABSOLUTE NEUTROPHILS# (MANUAL) 17.4 10^3/uL (1.7-8.2); BASOPHILS % (MANUAL) 0 % (0-2); EOSINOPHILS % (MANUAL) 0 % (0-6); LYMPHOCYTES % (MANUAL) 5 % (13-45); METAMYELOCYTES % (MANUAL) 1 % (0); MONOCYTES % (MANUAL) 6 % (3-13); SEGMENTED NEUTROPHILS % (MAN) 88 % (42-78); TOTAL CELLS COUNTED 100
[2017-08-12 13:45] LABS: ARTERIAL BLOOD BASE EXCESS -7.7 mmol/L; ARTERIAL BLOOD H2CO3 0.71 mmol/L (1.05-1.35); ARTERIAL BLOOD HCO3 15.1 mmol/L (20-26); ARTERIAL BLOOD O2 SATURATION 97.1 % (94-98); ARTERIAL BLOOD PCO2 23.7 mmHg (35-45); ARTERIAL BLOOD PH 7.42 (7.35-7.45); ARTERIAL BLOOD PO2 88.1 mmHg (80-100); ARTERIAL BLOOD TOTAL CO2 15.8 mmol/L (23-27)
[2017-08-12 13:46] LABS: ARTERIAL BLOOD FIO2 40%
[2017-08-12 13:46] LABS: ANISOCYTOSIS SLIGHT; HYPOCHROMASIA SLIGHT; POIKILOCYTOSIS 1+; POLYCHROMASIA SLIGHT; SCHISTOCYTES SLIGHT; TOXIC VACUOLATION PRESENT
[2017-08-12 13:47] LABS: PLATELET CLUMPS PRESENT; PLATELET COMMENT ADEQUATE
[2017-08-12 13:53] LABS: TOXIC GRANULATION 1+
[2017-08-12 13:54] LABS: ROULEAUX 1+
[2017-08-12] MEDS ORDERED: BUSPIRONE HCL 10 MG TABLET NG SCH (14:00)
[2017-08-12] MEDS ORDERED: MEROPENEM 1 GM in NORMAL SALINE 100 ML IV SCH ×2 (14:00→22:00)
[2017-08-12] MEDS: DOCUSATE SODIUM 100 MG CAPSULE PO SCH ×2 (14:09→15:45)
[2017-08-12] MEDS: PENTOXIFYLLINE 400 MG TABLET.SA PO SCH (14:09)
[2017-08-12] MEDS: TAMSULOSIN HCL 0.4 MG CAP.SR.24H PO SCH (14:09)
--- NOTE | 2017-08-12 14:19 | Progress Note ---
Provider Note Provider Note: Ms. Quinn notified that patient did not appear well and wanted for me to see the patient. Upon arrival to patient's room, he appeared to be restless and extremely pale. Family were are at bedside and stated that patient had been getting progressively worse since yesterday. We inquired as patient skin color and they related that he was pale. It appears that there was a concern by previous provider that patient was going through withdrawal. When family was inquired related that patient was not an alcoholic or that had been drinking alcohol. Interestingly he told the nurse that he drinks around 5 drinks per day and had alcohol last Friday. On examination patient was restless, poorly cooperative requiring four-point restraints. Had coarse rhonchi throughout. Heart was RRR, with no murmurs or gallops extremities. No edema, cyanosis noted. At that point in time discussed with Ms. Aldridge to immediately order blood work, including CBC, BMP, BNP, troponin, blood gases or VBG. Also order was given for Lasix 40 mg IV, Ativan IV, Haldol 5 mg and start bipap. Nurse was instructed as to put patient in a semisitting position. We reevaluated patient after he was placed on BiPAP but was still quite tachypneic and the decision was made to transfer patient to intensive care unit for further intubation. It is noteworth to mention that family members were kept updated about patient's medical condition while he was at 305 and in ICU. Patient was transferred to intensive care unit where he was intubated by anesthesia. Patient required propofol and succinylcholine. BOAT WASHER required the use of glidescope. Further orders were given which included a CT of the chest, change to meropenem instead of Zosyn, NG tube, Herron cath and consultation to Dr. Gunderson for management of ventilator. Family was approached about DNR status. Patient advocate was in the room when addressing DNR status. They wish to proceed with CPR and resuscitation however not to proceed if not anticipating good outcome
--- NOTE | 2017-08-12 14:48 | Progress Note ---
Provider Note Provider Note: ID Consult Note Asked to review case by Pharmacy. Mr De La Vega is a 67 with pmh including CVA and dysphagia. He presented with coarse breath sounds and fever, concerning for aspiration pneumonia. He was found to have a leukocytosis on admission on 08/08 of 13k, which has subsequently increased to 23k. His CXR on admission was read as not showing an acute cardiopulmonary process and looked similar to previous when I reviewed it. However, repeat CXR on 08/12 shows a bilateral pulmonary infiltrate potentially c/w pulmonary edema and/or pneumonia. His sputum showed 3 + GPCs on Gram stain and grew MRSA with an RAE to vancomycin of 2. He has most recently been on BiPAP in notes and now admitted to the ICU. [place] Pro BNP was [id number]. Blood cultures were negative from 08/09. Impression/Recommendations Suspected MRSA pneumonia with superimposed pulmonary edema 1. Discontinue meropenem. 2. Switch vancomycin to IV doxycycline, considering the elevated RAE of 2 to vancomycin and the inability to use linezolid due to prohibitive drug-drug interactions. 3. Consider checking the patient for influenza, considering that Staph aureus pneumonia is more common in the post-influenza setting. Jose Cruz Silver MD, pager [phone]
--- NOTE | 2017-08-12 14:56 | PDOC CONSULTATION ---
Consultation Consult Date: 08/12/17 Attending physician:: DASHAWN CANTOR Consult reason:: [facility] History of Present Illness Admission Date/PCP: 08/08/17 15:26 NEVAEH CHAVEZ PA-C History of Present Illness: MACI RODRIGUEZ SR is a 67 year old male who has a prior history of dysphasia with aspiration pneumonia. The patient was recently admitted to our facility in June 2017 with a presentation of aspiration pneumonia. The patient has had a previous stroke and has dysphasia. 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 He has been having difficulty with dysphasia since the treatment for the head and neck cancer. He has adamantly refused a PEG tube in the past. He is currently A full code however he had been a DNR in the past. Is currently intubated and sedated Past Medical History Cardiac Medical History: Reports: Coronary Artery Disease, Myocardial Infarction , Hyperlipidema, Hypertension Pulmonary Medical History: Reports: Pneumonia - Aspiration pneumonia Denies: Asthma, Bronchitis, Chronic Obstructive Pulmonary Disease (COPD) Neurological Medical History: Reports: Seizures - last sz about 5 years ago,off medication about 1-2 years ago. Endocrine Medical History: Reports: Diabetes Mellitus Type 2 GI Medical History: Reports: Gastroesophageal Reflux Disease Musculoskeltal Medical History: Reports: Arthritis Psychiatric Medical History: Reports: Depression Hematology: Reports: Anemia Past Surgical History Past Surgical History: Reports: Cardiac Catheterization, Coronary Artery Bypass Graft - x2, Orthopedic Surgery - Back, bilat feet Social History Information Source: [facility] Records Smoking Status: Former Smoker Frequency of Alcohol Use: None Hx Recreational Drug Use: Yes Drugs: None Hx Prescription Drug Abuse: No Do you have pets?: No Have you had any respiratory illnesses as a child?: No Have you been exposed to any sick contacts recently?: No - Advance Directive Resuscitation Status: Do Not Resuscitate Family History Family History: DM, Hypertension, Other - heart disease Parental Family History Reviewed: No Children Family History Reviewed: No Sibling(s) Family History Reviewed.: No Medication/Allergy Home Medications: Buspirone HCl [Buspar 30 mg Tablet] 30 mg PO Q8 08/08/17 Citalopram Hydrobromide [Celexa 20 mg Tablet] 20 mg PO DAILY 08/08/17 Clopidogrel Bisulfate [Plavix 75 mg Tablet] 75 mg PO DAILY 08/08/17 Cyclobenzaprine HCl [Flexeril 10 mg Tablet] 10 mg PO Q8HP PRN 08/08/17 Furosemide [Lasix 20 mg Tablet] 20 mg PO DAILY 08/08/17 Gabapentin [Neurontin] 600 mg PO Q6 08/08/17 Glipizide [Glipizide ER] 5 mg PO BID 08/08/17 Metoprolol Succinate [Toprol Xl 25 mg Tab.sr] 25 mg PO DAILY 08/08/17 Oxycodone HCl/Acetaminophen [Percocet 5-325 mg Tablet] 1 tab PO Q12HP PRN Pantoprazole Sodium [Protonix] 40 mg PO BID 08/08/17 Pentoxifylline [Trental 400 mg Tablet.sa] 400 mg PO Q12 08/08/17 Tamsulosin HCl [Flomax 0.4 mg Cap.sr] 0.4 mg PO DAILY 08/08/17 Allergies/Adverse Reactions: Sulfa (Sulfonamide Antibiotics) Allergy (Intermediate, Verified 06/18/17 06:21) COLD SORES IN MOUTH codeine phosphate [From Tylenol-Codeine] Allergy (Verified 06/18/17 06:21) Hives zolpidem tartrate [From Ambien] Adverse Reaction (Verified 06/18/17 06:21) Hallucinations Review of Systems ROS unobtainable: Due to endotracheal tube Physical Exam Vital Signs: Temp Pulse Resp BP Pulse Ox 97.6 F 128 H 56 H 143/100 H 95 08/12/17 07:38 08/12/17 10:09 08/12/17 10:09 08/12/17 07:38 08/12/17 10:09 Intake & Output 08/11/17 08/12/17 08/13/17 06:59 06:59 06:59 Intake Total 2785 1654 Output Total 975 Balance 1810 1654 Weight 71 kg General appearance: PRESENT: no acute distress, disheveled, thin. ABSENT: cooperative Head exam: PRESENT: atraumatic, normocephalic Eye exam: PRESENT: conjunctiva pale. ABSENT: nystagmus, periorbital swelling, scleral icterus Mouth exam: PRESENT: dry mucosa, neck supple, tongue midline, other - ET tube in place Neck exam: ABSENT: carotid bruit, JVD, lymphadenopathy, thyromegaly, tracheal deviation, tracheostomy Respiratory exam: PRESENT: decreased breath sounds, prolonged expiratory phas, rales, rhonchi, symmetrical, tachypnea, unlabored, wheezes. ABSENT: crackles, retraction, stridor Cardiovascular exam: PRESENT: RRR, +S1, +S2 Pulses: PRESENT: normal radial pulses GI/Abdominal exam: PRESENT: diminished bowel sounds, soft Extremities exam: ABSENT: clubbing, joint swelling Musculoskeletal exam: ABSENT: ambulatory, deformity, dislocation Neurological exam: ABSENT: alert, awake, oriented to person, oriented to place, oriented to time, oriented to situation Skin exam: PRESENT: dry, warm Results Laboratory Results: 08/12/17 06:16 08/12/17 06:16 08/12/17 08/12/17 08/12/17 06:16 06:16 06:16 WBC 22.7 H RBC 4.52 Hgb 12.6 L Hct 38.9 MCV 86 MCH 27.9 MCHC 32.5 RDW 14.4 H Plt Count 307 Carbonic Acid HCO3/H2CO3 Ratio ABG pH ABG pCO2 ABG pO2 ABG HCO3 ABG O2 Saturation ABG Base Excess VBG pH VBG pCO2 VBG HCO3 VBG Base Excess FiO2 Sodium 146.3 H Potassium 4.3 Chloride 110 H Carbon Dioxide 19 L Anion Gap 17 BUN 23 H Creatinine 1.64 H Est GFR ( Amer) 51 L Est GFR (Non-Af Amer) 42 L Glucose 231 H Calcium 9.5 Magnesium 2.5 H Total Bilirubin 1.1 AST 54 ALT 40 Alkaline Phosphatase 134 H Ammonia Total Protein 8.5 H Albumin 4.1 Blood Type Antibody Screen 08/12/17 08/12/17 08/12/17 06:16 10:04 10:04 WBC RBC Hgb Hct MCV MCH MCHC RDW Plt Count Carbonic Acid HCO3/H2CO3 Ratio ABG pH ABG pCO2 ABG pO2 ABG HCO3 ABG O2 Saturation ABG Base Excess VBG pH 7.31 VBG pCO2 44.5 VBG HCO3 21.8 VBG Base Excess -4.5 FiO2 Sodium Potassium Chloride Carbon Dioxide Anion Gap BUN Creatinine Est GFR ( Amer) Est GFR (Non-Af Amer) Glucose Calcium Magnesium Total Bilirubin AST ALT Alkaline Phosphatase Ammonia < 8.7 L Total Protein Albumin Blood Type A POSITIVE Antibody Screen NEGATIVE 08/12/17 10:10 WBC RBC Hgb Hct MCV MCH MCHC RDW Plt Count Carbonic Acid 0.87 L HCO3/H2CO3 Ratio 18:1 ABG pH 7.37 ABG pCO2 29.0 L ABG pO2 66.8 L ABG HCO3 16.3 L ABG O2 Saturation 93.1 L ABG Base Excess -7.7 VBG pH VBG pCO2 VBG HCO3 VBG Base Excess FiO2 60% Sodium Potassium Chloride Carbon Dioxide Anion Gap BUN Creatinine Est GFR ( Amer) Est GFR (Non-Af Amer) Glucose Calcium Magnesium Total Bilirubin AST ALT Alkaline Phosphatase Ammonia Total Protein Albumin Blood Type Antibody Screen 08/10/17 03:10 Clean Catch Midstream Urine Culture - Final NO GROWTH 2 DAYS 08/09/17 10:03 Sputum Gram Stain - Final 08/09/17 10:03 Sputum Sputum Culture - Final Mrsa (Meth Resis Staph Aureus) Normal Anika Absent 08/12/17 10:04 NT-Pro-B Natriuret Pep 72718 H Impressions: Chest X-Ray 08/12/17 08:54 IMPRESSION: INCREASING PERIHILAR AIRSPACE DISEASE AND RIGHT UPPER LOBE AIRSPACE DISEASE. SUSPECT PNEUMONIA ALTHOUGH THERE MAY ALSO BE A COMPONENT OF CENTRAL PULMONARY EDEMA. Assessment & Plan - Diagnosis (1) Acute respiratory failure Qualifiers: Respiratory failure complication: unspecified whether with hypoxia or hypercapnia Qualified Code(s): J96.00 - Acute respiratory failure, unspecified whether with hypoxia or hypercapnia Is this a current diagnosis for this admission?: Yes Plan: intubated [id number] (2) Aspiration pneumonia Is this a current diagnosis for this admission?: Yes Plan: witnessed (3) Pneumonia Qualifiers: Pneumonia type: due to unspecified organism Laterality: right Lung location: unspecified part of lung Qualified Code(s): J18.9 - Pneumonia, unspecified organism Plan: MRSA + aspiration (4) History of MRSA infection of lungs Is this a current diagnosis for this admission?: Yes (5) Throat cancer Is this a current diagnosis for this admission?: Yes Plan: xrt neck anatomy distorted needs a subclavian 3 luman cath - Time Total Critical Time (Minutes): 65
[2017-08-12] MEDS ORDERED: PROPOFOL 100 ML IV PRN (15:07)
[2017-08-12] MEDS: METOPROLOL SUCCINATE 25 MG TAB.SR.24H PO SCH (15:45)
[2017-08-12] MEDS ORDERED: DEXTROSE 5%-WATER 1000 ML 1,000 ML IV PRN (15:50)
[2017-08-12] MEDS: FAMOTIDINE INJ/PF 20 MG/2 ML SDV IV SCH (15:56)
[2017-08-12] MEDS: ENOXAPARIN SODIUM INJ 30 MG/0.3 ML DISP.SYRIN SUBCUT SCH (15:59)
[2017-08-12] MEDS: VANCOMYCIN HCL 1,000 MG in DEXTROSE 5%-WATER 250 ML IV SCH (16:46)
[2017-08-12] MEDS ORDERED: LANSOPRAZOLE 30 MG TAB.RAP.DR NG SCH (17:00)
--- NOTE | 2017-08-12 17:43 | XCELERA REPORT ---
[address] [address] Transthoracic Echocardiogram Report Name: MACI RODRIGUEZ SR Age: 67 yrs Gender: Male : 1950 Patient Status: Inpatient Patient Location: ICU^601^A Study Date: 08/12/2017 12:17 PM Height: 67 in Weight: 156 lb BSA: 1.8 m2 Procedure: A complete two-dimensional transthoracic echocardiogram was performed (2D, M-mode, spectral and color flow Doppler). The study was technically difficult with many images being suboptimal in quality. Reason For Study: respiratory failure, chf Ordering Physician: DASHAWN CANTOR Performed By: Olga Ty Interpretation Summary Left ventricular systolic function is severely reduced. The Ejection Fraction estimate is 20-25% Doppler measurements suggest pseudonormalized left ventricular relaxation, which is associated with grade II/IV or mild to moderate diastolic dysfunction There is apical wall akinesis There is mid to distal anterior wall akinesis Thrombus can not be excluded. The right ventricular systolic function is normal. The right atrium is normal in size The left atrial size is normal. There is a mild amount of mitral regurgitation There is no mitral valve stenosis. There is no aortic stenosis No aortic regurgitation is present. There is a trace to mild amount of tricuspid regurgitation There is mild pulmonary hypertension by echo Right ventricular systolic pressure is estimated to be elevated at 30- 40mmHg. The aortic root is not well visualized but is probably normal size. The inferior vena cava appeared normal and decreased > 50% with respiration (RAP 5-10 mmHg) There is no pericardial effusion. MMode/2D Measurements & Calculations RVDd: 2.8 cm LVIDd: 6.1 cm FS: 13.9 % EPSS: 1.6 cm IVSd: 0.89 cm LVIDs: 5.3 cm EDV(Teich): 186.9 ml LVPWd: 0.83 cm ESV(Teich): 132.6 ml EF(Teich): 29.0 % Ao root diam: 3.4 cm LVOT diam: 2.3 cm Ao root area: 9.1 cm2 LVOT area: 4.1 cm2 Doppler Measurements & Calculations MV E max johana: MV dec slope: Ao V2 max: LV V1 max P.3 cm/sec 776.2 cm/sec2 134.5 cm/sec 3.1 mmHg MV A max johana: MV dec time: Ao max PG: LV V1 max: 59.1 cm/sec 0.10 sec 7.2 mmHg 87.4 cm/sec MV E/A: 1.3 ANTONIETA(V,D): 2.7 cm2 PA V2 max: TR max johana: 63.6 cm/sec 274.2 cm/sec PA max PG: TR max P.1 mmHg 1.6 mmHg Left Ventricle The left ventricle is mildly dilated. Left ventricular systolic function is severely reduced. The Ejection Fraction estimate is 20-25%. Doppler measurements suggest pseudonormalized left ventricular relaxation, which is associated with grade II/IV or mild to moderate diastolic dysfunction. There is apical wall akinesis. There is mid to distal anterior wall akinesis. Thrombus can not be excluded. Right Ventricle The right ventricle is grossly normal size. There is normal right ventricular wall thickness. The right ventricular systolic function is normal. Atria The right atrium is normal in size. The left atrial size is normal. Interarterial septum not well visualized and not well dopplered. Cannot comment on ASD/PFO presence. Mitral Valve The mitral valve is grossly normal. There is no mitral valve stenosis. There is a mild amount of mitral regurgitation. Aortic Valve The aortic valve is mildly calcified. The aortic valve is trileaflet. There is no aortic stenosis. No aortic regurgitation is present. Tricuspid Valve The tricuspid valve is not well visualized, but is grossly normal. There is no tricuspid stenosis. There is a trace to mild amount of tricuspid regurgitation. There is mild pulmonary hypertension by echo. Right ventricular systolic pressure is estimated to be elevated at 30-40mmHg. Pulmonic Valve The pulmonic valve is not well visualized. Great Vessels The aortic root is not well visualized but is probably normal size. The inferior vena cava appeared normal and decreased > 50% with respiration (RAP 5-10 mmHg). Effusions There is no pericardial effusion. : DASHAWN CANTOR > Octavia Berry
--- NOTE | 2017-08-12 17:44 | Progress Note ---
Provider Note Provider Note: In following up with the patient this afternoon unfortunately he continues to not do well. His troponin came back at 2.8. He had his echocardiogram performed and I spoke to the web coordinator on the phone and he has indicated that he has an EF of about 25%. I had initially asked the web coordinator to see him but he thinks that he needs urgent transfer to a tertiary center due to his whole overall picture. I have spoken to the patient's family and they would like the patient transferred to [facility]. He will be transitioned there as soon as we find a bed. In the meantime the patient remains ventilated. Exam this afternoon reveals coarse breath sounds throughout all lung silva. He is tachycardic. He is febrile. We are going to repeat blood cultures and trend his troponins while he is here. I am adding a stat BNP I am going to get a stat BNP and follow-up to see whether he needs further diuresis. Additional time spent: 60 minutes
[2017-08-12] MEDS ORDERED: MIDAZOLAM HCL 50 MG/100 ML RTUINJ IV PRN (17:49)
[2017-08-12] MEDS ORDERED: NITROGLYCERIN/D5W 50 MG/250 ML RTUINJ IV PRN (17:51)
[2017-08-12] MEDS ORDERED: MAGNESIUM OXIDE 400 MG TABLET NG SCH (18:00)
[2017-08-12] MEDS ORDERED: DOXYCYCLINE HYCLATE 100 MG in DEXTROSE 5%-WATER 250 ML IV SCH (18:00)
[2017-08-12] MEDS ORDERED: ENOXAPARIN SODIUM INJ 80 MG/0.8 ML DISP.SYRIN SUBCUT SCH (18:00)
[2017-08-12 18:30] LABS: CREATINE KINASE MB 10.1 ng/mL (<4.55); TROPONIN I 2.9 ng/mL
[2017-08-12] MEDS ORDERED: ATORVASTATIN CALCIUM 80 MG TABLET PO ONE (18:30)
[2017-08-12] MEDS ORDERED: ASPIRIN 81 MG TABLET, CHEWABLE PO ONE (18:30)
--- NOTE | 2017-08-12 18:43 | PDOC TRANSFER SUMMARY ---
General Admission Date/PCP: 08/08/17 15:26 NEVAEH CHAVEZ PA-C Biodiesel Production Technician: Dr. Gunderson Currently, the patient's surrogate decision maker is Shantanu Mckoy. This is the patient's son-in-law. The only phone number that I have for Mr. Mckoy at this time is his 's number, Rosalina. The number is [phone]. The patient lives with his sister and niece. His sister's name is Meg Suero and his niece's name is Julisa Campuzano. Julisa's phone number is [phone]. Meg' s phone number is [phone]. Admission Date: 08/08/17 Transfer Date: 08/12/17 Accepting Facility: [facility] Accepting Physician: Dr. Perera Resuscitation Status: Full Code - Transfer Diagnosis (1) Acute respiratory failure Is this a current diagnosis for this admission?: Yes Diagnosis Summary: According to our security nurse he may be developing ARDS. He has known pneumonia with MRSA growing in his sputum. He also has aspiration pneumonia as well. He had a witnessed aspiration event overnight. In addition he has acute systolic and diastolic congestive heart failure. He remains ventilated and will be urgently transferred to [facility]. (2) Pneumonia Is this a current diagnosis for this admission?: Yes Diagnosis Summary: MRSA pneumonia. He also had an aspiration event. He initially was on IV vancomycin and Zosyn at the beginning of this hospitalization. His Zosyn was changed to meropenem this morning. His sputum culture finalized and there is an RAE of 2 to vancomycin and currently he is receiving doxycycline and meropenem. (3) NSTEMI (non-ST elevated myocardial infarction) Is this a current diagnosis for this admission?: Yes Diagnosis Summary: The patient's initial troponin has come back at 2.8. He has an echocardiogram with an EF of 20-25%. We do not have an echocardiogram to compare this to. He is being transferred to [facility] at the advice of our certified marine mechanic. Currently he is on a nitroglycerin drip. He has been started on full dose Lovenox. (4) Acute exacerbation of congestive heart failure Is this a current diagnosis for this admission?: Yes Diagnosis Summary: The patient had a 2D echocardiogram today which revealed a diminished ejection fraction of 20-25% along with grade 2 diastolic dysfunction. The patient has a markedly elevated BNP. He has been diuresed with IV Lasix. (5) Metabolic encephalopathy Is this a current diagnosis for this admission?: Yes Diagnosis Summary: Likely secondary to respiratory failure and acute infection. Currently intubated and sedated (6) Acute on chronic renal failure Is this a current diagnosis for this admission?: Yes Diagnosis Summary: He was initially receiving IV fluids for his acute renal failure. Unfortunately this is resulted in volume overload. As he is intubated and running a fever he is receiving some gentle hydration. (7) Hypertensive urgency Is this a current diagnosis for this admission?: Yes Diagnosis Summary: He had hypertensive urgency earlier in this hospitalization. Blood pressures have been uncontrolled today initially however now his blood pressures are running on the low side. (8) Dysphagia Is this a current diagnosis for this admission?: Yes Diagnosis Summary: The patient has known dysphagia which is the source of all of his aspiration events. (9) Alcohol withdrawal Is this a current diagnosis for this admission?: Yes Diagnosis Summary: It is unclear whether the patient has been drinking or not. According to the nursing staff and the physician yesterday, while the patient was alert and oriented he told him that he had been drinking. He lives with family members, one of which is in law enforcement. The conditions of him living there are that he cannot drink. He has a history of alcoholism in the past. They report that he spends about 18 hours a day at least in the house and that they would have known if there was any signs of him abusing alcohol. Initially yesterday when the patient was having issues he was being treated for alcohol withdrawal. Family members are adamant that he has not been drinking. (10) Anemia Is this a current diagnosis for this admission?: Yes Diagnosis Summary: He has an anemia that is consistent with chronic disease (11) Head and neck cancer Is this a current diagnosis for this admission?: Yes Diagnosis Summary: Status post chemotherapy and radiation in the past. (12) stage I decubitus buttocks Is this a current diagnosis for this admission?: Yes (13) stage I decubitus right heel Is this a current diagnosis for this admission?: Yes (14) Diabetes Is this a current diagnosis for this admission?: Yes Diagnosis Summary: Blood sugars are markedly uncontrolled. He is currently on sliding scale insulin. (15) Narcotic dependence Is this a current diagnosis for this admission?: Yes Diagnosis Summary: The patient has chronic pain with narcotic dependence. He has as needed oxycodone written but I believe he takes it on a regular basis. He follows with a rug touch up painter as an outpatient. Perhaps he was going through narcotic withdrawal rather than alcohol withdrawal at the beginning of this whole event. (16) Full code status Is this a current diagnosis for this admission?: Yes Diagnosis Summary: Initially the patient was a DO NOT RESUSCITATE. However he had told his healthcare power of commercial real estate attorney that he would want everything done if there was a chance of meaningful recovery. He does not wish to have prolonged ventilation or be resuscitated and less they think he will recover. For now he is a full code at the request of his healthcare power of commercial real estate attorney. - Transfer Medications Home Medications: Buspirone HCl [Buspar 30 mg Tablet] 30 mg PO Q8 08/08/17 Citalopram Hydrobromide [Celexa 20 mg Tablet] 20 mg PO DAILY 08/08/17 Clopidogrel Bisulfate [Plavix 75 mg Tablet] 75 mg PO DAILY 08/08/17 Cyclobenzaprine HCl [Flexeril 10 mg Tablet] 10 mg PO Q8HP PRN 08/08/17 Furosemide [Lasix 20 mg Tablet] 20 mg PO DAILY 08/08/17 Gabapentin [Neurontin] 600 mg PO Q6 08/08/17 Glipizide [Glipizide ER] 5 mg PO BID 08/08/17 Metoprolol Succinate [Toprol Xl 25 mg Tab.sr] 25 mg PO DAILY 08/08/17 Oxycodone HCl/Acetaminophen [Percocet 5-325 mg Tablet] 1 tab PO Q12HP PRN Pantoprazole Sodium [Protonix] 40 mg PO BID 08/08/17 Pentoxifylline [Trental 400 mg Tablet.sa] 400 mg PO Q12 08/08/17 Tamsulosin HCl [Flomax 0.4 mg Cap.sr] 0.4 mg PO DAILY 08/08/17 Transfer Medications: Current Medications Acetaminophen (Tylenol 325 Mg Tablet) 650 mg NG Q6HP PRN PRN Reason: FEVER >101 Stop: 09/07/17 17:34 Last Admin: 08/12/17 14:25 Dose: 650 mg Albuterol (Ventolin 0.083% Neb 2.5 Mg/3 Ml Ampul) 2.5 mg NEB RTQ2HP PRN PRN Reason: SHORTNESS OF BREATH Stop: 09/07/17 16:38 Albuterol/Ipratropium (Duoneb 3 Ml Ampul) 3 ml NEB RTQ6 ANNE Stop: 09/07/17 19:59 Last Admin: 08/12/17 14:45 Dose: 3 ml Aspirin (Aspirin 81 Mg Chewable Tablet) 324 mg PO NOW ONE Stop: 08/12/17 18:31 Atorvastatin Calcium (Lipitor 80 Mg Tablet) 80 mg PO NOW ONE Stop: 08/12/17 18:31 Citalopram Hydrobromide (Celexa 20 Mg Tablet) 20 mg NG DAILY [facility] Stop: 09/08/17 09:59 Clopidogrel Bisulfate (Plavix 75 Mg Tablet) 75 mg NG DAILY [facility] Stop: 09/08/17 09:59 Dextrose (Dextrose Inj 50% Syringe (25 Gm/50 Ml)) 12.5 gm IV PRN PRN; Protocol PRN Reason: FOR BG 50-69 IN ALERT PATIENT Stop: 09/07/17 16:38 Dextrose (Dextrose Inj 50% Syringe (25 Gm/50 Ml)) 25 gm IV PRN PRN; Protocol PRN Reason: See Label Comments Stop: 09/07/17 16:38 Docusate Sodium (Colace 100 Mg Capsule) 100 mg PO BID [facility] Stop: 09/07/17 17:59 Last Admin: 08/12/17 15:45 Dose: Not Given Enoxaparin Sodium (Lovenox Inj 80 Mg/0.8 Ml Disp.Syrin) 70 mg SUBCUT Q12A [facility] Stop: 09/11/17 17:59 Famotidine (Pepcid Inj/Pf 20 Mg/2 Ml Sdv) 20 mg IV Q12 ANNE Stop: 09/07/17 21:59 Last Admin: 08/12/17 15:56 Dose: 20 mg Furosemide (Lasix Inj/Pf 20 Mg/2 Ml Sdv) 20 mg IV Q12 [facility] Stop: 08/15/17 21:59 Glucagon (Glucagen Inj 1 Mg Vial) 1 mg SUBCUT PRN PRN; Protocol PRN Reason: Evaluate for BG < 70 Stop: 09/07/17 16:38 Glucose (Glutose 40% Gel 15 Gm Tube) 15 gm PO PRN PRN; Protocol PRN Reason: For BG 50-69 in Alert Patient Stop: 09/07/17 16:38 Glucose (Glutose 40% Gel 15 Gm Tube) 30 gm PO PRN PRN; Protocol PRN Reason: FOR BG < 50 IN ALERT PATIENT Stop: 09/07/17 16:38 Sodium Chloride (Nacl 0.9% 1000 Ml Iv Soln) 1,000 mls @ 50 mls/hr IV CONTINUOUS PRN PRN Reason: THIS MED IS NOT "PRN" Stop: 09/10/17 07:24 Last Admin: 08/11/17 08:26 Dose: 1,000 ml Meropenem 1 gm/ Sodium (Chloride) 100 mls @ 200 mls/hr IV Q8 [facility] Stop: 08/19/17 21:59 Propofol (Diprivan Rtu 1000 Mg/100 Ml Inf.Bottle) 100 mls @ 0 mls/hr IV CONTINUOUS PRN; Protocol; Titrate PRN Reason: THIS MED IS NOT "PRN" Stop: 09/11/17 15:06 Last Admin: 08/12/17 16:00 Dose: 100 ml Dextrose (D5w 1000 Ml Iv Soln) 1,000 mls @ 100 mls/hr IV CONTINUOUS PRN PRN Reason: THIS MED IS NOT "PRN" Stop: 09/11/17 15:49 Doxycycline Hyclate 100 mg/ (Dextrose) 250 mls @ 125 mls/hr IV Q12A ANNE Stop: 08/19/17 17:59 Midazolam HCl (Versed Rtu 50 Mg/100 Ml Premix Bag) 50 mg in 100 mls @ 0 mls/hr IV CONTINUOUS PRN; Protocol; Titrate PRN Reason: THIS MED IS NOT "PRN" Stop: 08/19/17 17:48 Nitroglycerin/Dextrose (Ntg Rtu 50 Mg/D5w 250 Ml Iv Premix Bottle) 50 mg in 250 mls @ 0 mls/hr IV CONTINUOUS PRN; Protocol; Titrate PRN Reason: THIS MED IS NOT "PRN" Stop: 09/11/17 17:50 Insulin Human Lispro (Humalog Insulin 100 Unit/1 Ml 3 Ml Vial) 0 - 12 unit SUBCUT Q6HP PRN; Protocol PRN Reason: PER PROTOCOL Stop: 09/07/17 17:36 Last Admin: 08/10/17 18:11 Dose: 6 unit Magnesium Oxide (Mag-Ox 400 Mg Tablet) 800 mg NG BID ANNE Stop: 09/08/17 09:59 Metoprolol Succinate (Toprol Xl 25 Mg Tab.Sr) 25 mg PO DAILY ANNE Stop: 09/08/17 09:59 Last Admin: 08/12/17 15:45 Dose: Not Given Oxycodone/Acetaminophen (Percocet 5-325 Mg Tablet) 1 tab NG Q8HP PRN PRN Reason: FOR PAIN Stop: 08/18/17 10:29 Last Admin: 08/12/17 15:58 Dose: 1 tab Pentoxifylline (Trental 400 Mg Tablet.Sa) 400 mg PO Q12 ANNE Stop: 09/08/17 09:59 Last Admin: 08/12/17 14:09 Dose: Not Given Pharmacy Profile Note (Medication Communication Order) 1 each [facility] .NOTICE NR Stop: 09/11/17 11:14 Pharmacy Profile Note (Medication Communication Order) 1 each [facility] .NOTICE NR Stop: 09/11/17 11:44 Sodium Chloride (Saline Flush 2.5 Ml Monoject Prefil Syrin) 2.5 ml IV Q8 ANNE Stop: 09/07/17 21:59 Last Admin: 08/12/17 15:45 Dose: Not Given Tamsulosin HCl (Flomax 0.4 Mg Cap.Sr) 0.4 mg PO DAILY ANNE Stop: 09/08/17 09:59 Last Admin: 08/12/17 14:09 Dose: Not Given - Allergies Allergies/Adverse Reactions: Sulfa (Sulfonamide Antibiotics) Allergy (Intermediate, Verified 06/18/17 06:21) COLD SORES IN MOUTH codeine phosphate [From Tylenol-Codeine] Allergy (Verified 06/18/17 06:21) Hives zolpidem tartrate [From Ambien] Adverse Reaction (Verified 06/18/17 06:21) Hallucinations Hospital Course Hospital Course: The patient is an extremely unfortunate 67-year-old gentleman with a past medical history significant for coronary artery disease status post two- vessel CABG I believe in 2008. He also has a history of a remote CVA with residual aphasia. He has a history of head and neck cancer status post chemotherapy and radiation. He is hospitalized frequently at our facility for recurrent aspiration pneumonia. The patient presented to our facility once again for aspiration pneumonia. He was admitted to the hospital and started on IV vancomycin and Zosyn. He was doing fairly well and was alert and oriented 3. He was interactive with the staff. Yesterday afternoon the patient began to develop some agitation. He had reported to the admitting physician as well as nursing staff that he had been drinking prior to admission. He stated that his last drink was on Friday. As the day wore on yesterday he became increasingly agitated. Calls were made to the physicians and they were treating him for alcohol withdrawal. Eventually the patient became combative and he was placed in restraints. He did have a witnessed aspiration event overnight per the nursing staff. Due to this his IV Zosyn was changed to meropenem this morning. I was called by the nursing staff this morning and told that he had developed severe respiratory distress. When I went to visit him his respiration rate was in the high 30s to mid 40s. He was extremely agitated and combative and initially we had significant difficulty in trying to obtain labs or an ABG. He had a chest x-ray performed which revealed evidence of possible pneumonia as well as vascular congestion. A BNP was quite elevated as well. He was initially given stat IV Lasix and transferred to the ICU where he was urgently intubated. The anesthesiologist that performed the intubation had quite a bit of difficulty due to his history of head and neck cancer. Eventually he was ventilated and sedated. We were able to get repeat labs and a repeat ABG post intubation showed significant improvement. Unfortunately the patient's initial troponin came back quite elevated at 2.8. We had obtained a stat 2D echocardiogram and the certified marine mechanic who read it noted that he had a diminished ejection fraction of 20-25% as well as grade 2 diastolic dysfunction. His recommendation was that we transfer the patient to a tertiary center for further treatment. The patient did have a sputum culture that finalized today. He is growing MRSA in his sputum. Unfortunately the RAE to vancomycin is 2. For now we have changed him to IV doxycycline and he will continue on his meropenem at the time of transfer to cover aspiration organisms. He is being diuresed with IV Lasix as well. In regards to his NSTEMI he has been placed on a nitroglycerin drip and started on full dose Lovenox. I have spoken to Dr. Adelso Flores at [facility] who has graciously agreed to accept this patient in transfer. He will be airlifted to their facility as soon as arrangements have been made. I have spoken at length to the patient's family. He does have a healthcare power of commercial real estate attorney as above. I spoke to him today and he indicated that he wanted to change the patient's CODE STATUS back to a full code. Initially he had been a DO NOT RESUSCITATE. Apparently the patient has communicated with family members that he would like attempts at resuscitation but does not want any prolonged intubation or resuscitation if there is no hope of meaningful recovery. For now he remains a full code and further discussions will need to be had with the patient's family depending how he does over the next couple of days. Physical Exam Vital Signs: Temp Pulse Resp BP Pulse Ox 100.4 F 110 H 18 118/90 H 97 08/12/17 12:00 08/12/17 14:45 08/12/17 14:45 08/12/17 12:00 08/12/17 16:55 Intake & Output 08/11/17 08/12/17 08/13/17 06:59 06:59 06:59 Intake Total 2785 1654 Output Total 975 60 Balance 1810 1654 -60 Weight 71 kg General appearance: PRESENT: other - The patient is currently intubated. He appears to be comfortable Head exam: PRESENT: atraumatic Mouth exam: PRESENT: other - Currently intubated Respiratory exam: PRESENT: crackles, rhonchi - He has coarse breath sounds anteriorly. Cardiovascular exam: PRESENT: tachycardia Pulses: PRESENT: normal dorsalis pedis pul GI/Abdominal exam: PRESENT: normal bowel sounds, soft. ABSENT: distended, guarding, mass, organolmegaly, rebound, tenderness Rectal exam: PRESENT: deferred Gentrourinary exam: PRESENT: indwelling catheter Extremities exam: PRESENT: other - No clubbing cyanosis or edema Musculoskeletal exam: PRESENT: normal inspection. ABSENT: ambulatory Neurological exam: PRESENT: other - Currently sedated and intubated Psychiatric exam: PRESENT: other - Currently sedated and intubated Skin exam: PRESENT: dry, warm, other - Reportedly has a stage I decubitus ulcer on the sacrum and right heel. This was not examined at the time of discharge. Results Laboratory Results: 08/12/17 12:38 08/12/17 12:38 08/12/17 08/12/17 08/12/17 06:16 06:16 06:16 WBC 22.7 H RBC 4.52 Hgb 12.6 L Hct 38.9 MCV 86 MCH 27.9 MCHC 32.5 RDW 14.4 H Plt Count 307 Seg Neutrophils % Lymphocytes % Monocytes % Eosinophils % Basophils % Absolute Neutrophils Absolute Lymphocytes Absolute Monocytes Absolute Eosinophils Absolute Basophils Carbonic Acid HCO3/H2CO3 Ratio ABG pH ABG pCO2 ABG pO2 ABG HCO3 ABG O2 Saturation ABG Base Excess VBG pH VBG pCO2 VBG HCO3 VBG Base Excess FiO2 Sodium 146.3 H Potassium 4.3 Chloride 110 H Carbon Dioxide 19 L Anion Gap 17 BUN 23 H Creatinine 1.64 H Est GFR ( Amer) 51 L Est GFR (Non-Af Amer) 42 L Glucose 231 H Lactic Acid Calcium 9.5 Magnesium 2.5 H Total Bilirubin 1.1 AST 54 ALT 40 Alkaline Phosphatase 134 H Ammonia Total Protein 8.5 H Albumin 4.1 Blood Type Antibody Screen 08/12/17 08/12/17 08/12/17 06:16 10:04 10:04 WBC RBC Hgb Hct MCV MCH MCHC RDW Plt Count Seg Neutrophils % Lymphocytes % Monocytes % Eosinophils % Basophils % Absolute Neutrophils Absolute Lymphocytes Absolute Monocytes Absolute Eosinophils Absolute Basophils Carbonic Acid HCO3/H2CO3 Ratio ABG pH ABG pCO2 ABG pO2 ABG HCO3 ABG O2 Saturation ABG Base Excess VBG pH 7.31 VBG pCO2 44.5 VBG HCO3 21.8 VBG Base Excess -4.5 FiO2 Sodium Potassium Chloride Carbon Dioxide Anion Gap BUN Creatinine Est GFR ( Amer) Est GFR (Non-Af Amer) Glucose Lactic Acid Calcium Magnesium Total Bilirubin AST ALT Alkaline Phosphatase Ammonia < 8.7 L Total Protein Albumin Blood Type A POSITIVE Antibody Screen NEGATIVE 08/12/17 08/12/17 08/12/17 10:10 12:38 12:38 WBC 19.6 H RBC 4.07 L Hgb 11.2 L Hct 35.3 L MCV 87 MCH 27.5 MCHC 31.7 L RDW 14.7 H Plt Count 285 Seg Neutrophils % Not Reportable Lymphocytes % Not Reportable Monocytes % Not Reportable Eosinophils % Not Reportable Basophils % Not Reportable Absolute Neutrophils Not Reportable Absolute Lymphocytes Not Reportable Absolute Monocytes Not Reportable Absolute Eosinophils Not Reportable Absolute Basophils Not Reportable Carbonic Acid 0.87 L HCO3/H2CO3 Ratio 18:1 ABG pH 7.37 ABG pCO2 29.0 L ABG pO2 66.8 L ABG HCO3 16.3 L ABG O2 Saturation 93.1 L ABG Base Excess -7.7 VBG pH VBG pCO2 VBG HCO3 VBG Base Excess FiO2 60% Sodium 145.9 H Potassium 4.6 Chloride 110 H Carbon Dioxide 20 L Anion Gap 16 BUN 28 H Creatinine 1.69 H Est GFR ( Amer) 49 L Est GFR (Non-Af Amer) 41 L Glucose 256 H Lactic Acid Calcium 9.0 Magnesium 2.4 H Total Bilirubin AST ALT Alkaline Phosphatase Ammonia Total Protein Albumin Blood Type Antibody Screen 08/12/17 08/12/17 13:30 14:47 WBC RBC Hgb Hct MCV MCH MCHC RDW Plt Count Seg Neutrophils % Lymphocytes % Monocytes % Eosinophils % Basophils % Absolute Neutrophils Absolute Lymphocytes Absolute Monocytes Absolute Eosinophils Absolute Basophils Carbonic Acid 0.71 L HCO3/H2CO3 Ratio 21:1 ABG pH 7.42 ABG pCO2 23.7 L ABG pO2 88.1 ABG HCO3 15.1 L ABG O2 Saturation 97.1 ABG Base Excess -7.7 VBG pH VBG pCO2 VBG HCO3 VBG Base Excess FiO2 40% Sodium Potassium Chloride Carbon Dioxide Anion Gap BUN Creatinine Est GFR ( Amer) Est GFR (Non-Af Amer) Glucose Lactic Acid 1.7 Calcium Magnesium Total Bilirubin AST ALT Alkaline Phosphatase Ammonia Total Protein Albumin Blood Type Antibody Screen 08/10/17 03:10 Clean Catch Midstream Urine Culture - Final NO GROWTH 2 DAYS 08/12/17 08/12/17 08/12/17 10:04 14:47 17:40 Creatine Kinase 266 H Troponin I 2.800 NT-Pro-B Natriuret Pep [id number] H Impressions: Chest X-Ray 08/12/17 08:54 IMPRESSION: INCREASING PERIHILAR AIRSPACE DISEASE AND RIGHT UPPER LOBE AIRSPACE DISEASE. SUSPECT PNEUMONIA ALTHOUGH THERE MAY ALSO BE A COMPONENT OF CENTRAL PULMONARY EDEMA. Plan Discharge Plan: He will be airlifted to [facility] under the care of Dr. Adelso Flores in stable condition. Time Spent: Greater than 30 Minutes
[2017-08-12 19:16] VITALS: BP 98/75
--- NOTE | 2017-08-12 20:01 | EKG REPORT ---
SEVERITY:- ABNORMAL ECG - SINUS TACHYCARDIA ABNORMAL T, CONSIDER ISCHEMIA, LATERAL LEADS PROLONGED QT INTERVAL : Confirmed by: Duong Horn MD 12-Aug-2017 20:00:15
[2017-08-12] MEDS ORDERED: FUROSEMIDE INJ/PF 20 MG/2 ML SDV IV SCH (22:00)
--- NOTE | 2017-08-13 09:55 | PDOC CONSULTATION ---
Consultation Consult Date: 08/12/17 History of Present Illness Admission Date/PCP: 08/08/17 15:26 NEVAEH CHAVEZ PA-C History of Present Illness: MACI RODRIGUEZ SR is a 67 year old male who has a prior history of dysphasia with aspiration pneumonia. The patient was recently admitted to our facility in June 2017 with a presentation of aspiration pneumonia. The patient has had a previous stroke and has dysphasia. 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 He has been having difficulty with dysphasia since the treatment for the head and neck cancer. He has adamantly refused a PEG tube in the past. He is currently A full code however he had been a DNR in the past. Is currently intubated and sedated. Talked with patient's daughter and son-in-law. Apparently son-in-law is the surrogate decision-maker. 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 They claimed that this brewery representative sent patient to the emergency room for further evaluation and management. Today patient was noted to actively deteriorate. 2D echo shows severe LV systolic dysfunction with evidence of anterior and apical myocardial infarction possibly of recent origin. Past Medical History Cardiac Medical History: Reports: Coronary Artery Disease, Myocardial Infarction , Hyperlipidema, Hypertension Pulmonary Medical History: Reports: Pneumonia - Aspiration pneumonia Denies: Asthma, Bronchitis, Chronic Obstructive Pulmonary Disease (COPD) Neurological Medical History: Reports: Seizures - last sz about 5 years ago,off medication about 1-2 years ago. Endocrine Medical History: Reports: Diabetes Mellitus Type 2 GI Medical History: Reports: Gastroesophageal Reflux Disease Musculoskeltal Medical History: Reports: Arthritis Psychiatric Medical History: Reports: Depression Hematology: Reports: Anemia Past Surgical History Past Surgical History: Reports: Cardiac Catheterization, Coronary Artery Bypass Graft - x2, Orthopedic Surgery - Back, bilat feet Social History Smoking Status: Former Smoker Frequency of Alcohol Use: None Hx Recreational Drug Use: Yes Drugs: None Hx Prescription Drug Abuse: No - Advance Directive Resuscitation Status: Full Code Family History Family History: DM, Hypertension, Other - heart disease Parental Family History Reviewed: Yes Children Family History Reviewed: Yes Sibling(s) Family History Reviewed.: Yes Medication/Allergy Home Medications: Buspirone HCl [Buspar 30 mg Tablet] 30 mg PO Q8 08/08/17 Citalopram Hydrobromide [Celexa 20 mg Tablet] 20 mg PO DAILY 08/08/17 Clopidogrel Bisulfate [Plavix 75 mg Tablet] 75 mg PO DAILY 08/08/17 Cyclobenzaprine HCl [Flexeril 10 mg Tablet] 10 mg PO Q8HP PRN 08/08/17 Furosemide [Lasix 20 mg Tablet] 20 mg PO DAILY 08/08/17 Gabapentin [Neurontin] 600 mg PO Q6 08/08/17 Glipizide [Glipizide ER] 5 mg PO BID 08/08/17 Metoprolol Succinate [Toprol Xl 25 mg Tab.sr] 25 mg PO DAILY 08/08/17 Oxycodone HCl/Acetaminophen [Percocet 5-325 mg Tablet] 1 tab PO Q12HP PRN Pantoprazole Sodium [Protonix] 40 mg PO BID 08/08/17 Pentoxifylline [Trental 400 mg Tablet.sa] 400 mg PO Q12 08/08/17 Tamsulosin HCl [Flomax 0.4 mg Cap.sr] 0.4 mg PO DAILY 08/08/17 Allergies/Adverse Reactions: Sulfa (Sulfonamide Antibiotics) Allergy (Intermediate, Verified 06/18/17 06:21) COLD SORES IN MOUTH codeine phosphate [From Tylenol-Codeine] Allergy (Verified 06/18/17 06:21) Hives zolpidem tartrate [From Ambien] Adverse Reaction (Verified 06/18/17 06:21) Hallucinations Review of Systems ROS unobtainable: Due to endotracheal tube Physical Exam Vital Signs: Temp Pulse Resp BP Pulse Ox 99.7 F 93 24 H 98/75 L 98 08/12/17 18:00 08/12/17 18:00 08/12/17 18:00 08/12/17 18:00 08/12/17 18:00 Intake & Output 08/11/17 08/12/17 08/13/17 06:59 06:59 06:59 Intake Total 2785 1654 Output Total 975 135 Balance 1810 1654 -135 Weight 71 kg Exam: GENERAL: well-nourished and in no acute distress. Patient is intubated and sedated. Orientation cannot be checked HEAD: Atraumatic, normocephalic. EYES: Pupils equal round and reactive to light, extraocular movements could not be checked, sclera anicteric, conjunctiva are normal. ENT: TMs normal, nares patent, oropharynx clear without exudates. Moist mucous membranes. No oral ulcerations or bleeding gums noted NECK: supple without lymphadenopathy or JVD. Trachea is central. No cervical or axillary lymphadenopathy noted. Carotids are 2+ LUNGS: Breath sounds mostly clear to auscultation patient is noted to have bibasal crackles at the extreme bases CHEST: Palpation of the chest wall shows no significant chest wall tenderness or abnormalities. HEART: [place] [employer], No PSH, 2/6 JERRELL aortic area, 1/6 ortiz systolic murmur mitral area , no rubs or gallops. ABDOMEN: Soft, no significant tenderness appreciated, normoactive bowel sounds. No guarding, no rebound. No rigidity noted . No masses appreciated. EXTREMITIES: Pedal pulses are 1-2+, no calf tenderness noted, 1+ pedal edema noted. No clubbing or cyanosis. NEUROLOGICAL: The patient cannot participate in the neurological exam but no facial asymmetry noted. Extremities slightly hypotonic PSYCH: This cannot be evaluated. Patient cannot participate. SKIN: No significant ecchymosis, rash, or signs of pruritus noted. MUSCULOSKELETAL EXAM: No significant joint swelling noted. Patient cannot participate in musculoskeletal exam Results Laboratory Results: 08/12/17 12:38 08/12/17 12:38 08/12/17 08/12/17 08/12/17 06:16 06:16 06:16 WBC 22.7 H RBC 4.52 Hgb 12.6 L Hct 38.9 MCV 86 MCH 27.9 MCHC 32.5 RDW 14.4 H Plt Count 307 Seg Neutrophils % Lymphocytes % Monocytes % Eosinophils % Basophils % Absolute Neutrophils Absolute Lymphocytes Absolute Monocytes Absolute Eosinophils Absolute Basophils Carbonic Acid HCO3/H2CO3 Ratio ABG pH ABG pCO2 ABG pO2 ABG HCO3 ABG O2 Saturation ABG Base Excess VBG pH VBG pCO2 VBG HCO3 VBG Base Excess FiO2 Sodium 146.3 H Potassium 4.3 Chloride 110 H Carbon Dioxide 19 L Anion Gap 17 BUN 23 H Creatinine 1.64 H Est GFR ( Amer) 51 L Est GFR (Non-Af Amer) 42 L Glucose 231 H Lactic Acid Calcium 9.5 Magnesium 2.5 H Total Bilirubin 1.1 AST 54 ALT 40 Alkaline Phosphatase 134 H Ammonia Total Protein 8.5 H Albumin 4.1 Blood Type Antibody Screen 08/12/17 08/12/17 08/12/17 06:16 10:04 10:04 WBC RBC Hgb Hct MCV MCH MCHC RDW Plt Count Seg Neutrophils % Lymphocytes % Monocytes % Eosinophils % Basophils % Absolute Neutrophils Absolute Lymphocytes Absolute Monocytes Absolute Eosinophils Absolute Basophils Carbonic Acid HCO3/H2CO3 Ratio ABG pH ABG pCO2 ABG pO2 ABG HCO3 ABG O2 Saturation ABG Base Excess VBG pH 7.31 VBG pCO2 44.5 VBG HCO3 21.8 VBG Base Excess -4.5 FiO2 Sodium Potassium Chloride Carbon Dioxide Anion Gap BUN Creatinine Est GFR ( Amer) Est GFR (Non-Af Amer) Glucose Lactic Acid Calcium Magnesium Total Bilirubin AST ALT Alkaline Phosphatase Ammonia < 8.7 L Total Protein Albumin Blood Type A POSITIVE Antibody Screen NEGATIVE 08/12/17 08/12/17 08/12/17 10:10 12:38 12:38 WBC 19.6 H RBC 4.07 L Hgb 11.2 L Hct 35.3 L MCV 87 MCH 27.5 MCHC 31.7 L RDW 14.7 H Plt Count 285 Seg Neutrophils % Not Reportable Lymphocytes % Not Reportable Monocytes % Not Reportable Eosinophils % Not Reportable Basophils % Not Reportable Absolute Neutrophils Not Reportable Absolute Lymphocytes Not Reportable Absolute Monocytes Not Reportable Absolute Eosinophils Not Reportable Absolute Basophils Not Reportable Carbonic Acid 0.87 L HCO3/H2CO3 Ratio 18:1 ABG pH 7.37 ABG pCO2 29.0 L ABG pO2 66.8 L ABG HCO3 16.3 L ABG O2 Saturation 93.1 L ABG Base Excess -7.7 VBG pH VBG pCO2 VBG HCO3 VBG Base Excess FiO2 60% Sodium 145.9 H Potassium 4.6 Chloride 110 H Carbon Dioxide 20 L Anion Gap 16 BUN 28 H Creatinine 1.69 H Est GFR ( Amer) 49 L Est GFR (Non-Af Amer) 41 L Glucose 256 H Lactic Acid Calcium 9.0 Magnesium 2.4 H Total Bilirubin AST ALT Alkaline Phosphatase Ammonia Total Protein Albumin Blood Type Antibody Screen 08/12/17 08/12/17 13:30 14:47 WBC RBC Hgb Hct MCV MCH MCHC RDW Plt Count Seg Neutrophils % Lymphocytes % Monocytes % Eosinophils % Basophils % Absolute Neutrophils Absolute Lymphocytes Absolute Monocytes Absolute Eosinophils Absolute Basophils Carbonic Acid 0.71 L HCO3/H2CO3 Ratio 21:1 ABG pH 7.42 ABG pCO2 23.7 L ABG pO2 88.1 ABG HCO3 15.1 L ABG O2 Saturation 97.1 ABG Base Excess -7.7 VBG pH VBG pCO2 VBG HCO3 VBG Base Excess FiO2 40% Sodium Potassium Chloride Carbon Dioxide Anion Gap BUN Creatinine Est GFR ( Amer) Est GFR (Non-Af Amer) Glucose Lactic Acid 1.7 Calcium Magnesium Total Bilirubin AST ALT Alkaline Phosphatase Ammonia Total Protein Albumin Blood Type Antibody Screen 08/10/17 03:10 Clean Catch Midstream Urine Culture - Final NO GROWTH 2 DAYS 08/12/17 08/12/17 08/12/17 10:04 14:47 17:40 Creatine Kinase CK-MB (CK-2) 10.10 H Troponin I 2.800 2.900 NT-Pro-B Natriuret Pep 55425 H 58905 H 08/12/17 17:40 Creatine Kinase 266 H CK-MB (CK-2) Troponin I NT-Pro-B Natriuret Pep EKG Comments: Sinus tachycardia with minor nonspecific T-wave changes. Impressions: Chest X-Ray 08/12/17 08:54 IMPRESSION: INCREASING PERIHILAR AIRSPACE DISEASE AND RIGHT UPPER LOBE AIRSPACE DISEASE. SUSPECT PNEUMONIA ALTHOUGH THERE MAY ALSO BE A COMPONENT OF CENTRAL PULMONARY EDEMA. Assessment & Plan - Diagnosis (1) NSTEMI (non-ST elevated myocardial infarction) Is this a current diagnosis for this admission?: Yes (2) Acute exacerbation of congestive heart failure Qualifiers: Heart failure type: combined systolic and diastolic Qualified Code(s): I50.43 - Acute on chronic combined systolic (congestive) and diastolic ( congestive) heart failure Is this a current diagnosis for this admission?: Yes (3) Acute renal failure superimposed on stage 3 chronic kidney disease Qualifiers: Acute renal failure type: unspecified Qualified Code(s): N17.9 - Acute kidney failure, unspecified; N18.3 - Chronic kidney disease, stage 3 (moderate) ; N18.3 - Chronic kidney disease, stage 3 (moderate) Is this a current diagnosis for this admission?: Yes (4) Diabetes Qualifiers: Diabetes mellitus type: type 2 Chronic kidney disease stage: stage 3 ( moderate) Is this a current diagnosis for this admission?: Yes (5) Pneumonia, organism unspecified Is this a current diagnosis for this admission?: Yes - Notes Notes: Patient was seen in the unit. He had respiratory distress earlier. Was intubated. 2D echo showed severe LV systolic dysfunction with apical and mid and distal anterior wall akinesia. However there was no significant thinning noted therefore, it was felt that the myocardial infarction was recent. In addition patient noted to be in CHF. Earlier he was being treated for aspiration pneumonia. His BNP came back extremely elevated and his chest x-ray picture consistent with CHF as well as pneumonia. Patient was stabilized, started on Lovenox, aspirin. Nitroglycerin drip was ordered but not started because of low blood pressure. Subsequently, I recommended that patient be transferred to tertiary care as there is significant risk of deterioration and patient needed heart catheterization and possible intervention in view of somewhat low blood pressure and recent RI. Patient was subsequently accepted by [facility] and was transferred. I did talk with patient's son-in-law who is patient's power of superintendent sanitation and daughter and explained the situation. Also discussed with hospitalist taking care of the patient. - Time Time Spent: 30 to 50 Minutes - CODE STATUS was discussed, patient remains full code. Surrogate decision-maker unchanged. Multiple medical problems were addressed. More than 50% of the time spent coordinating care, discussing management plans with involved caregivers. Management plans discussed with involved personnels. Medical decision making was of moderate to high complexity , patient's has multiple comorbidities. Medications reviewed and adjusted accordingly: Yes
[2017-08-13] MEDS ORDERED: FUROSEMIDE 20 MG TABLET NG SCH (10:00)
[2017-08-13] MEDS ORDERED: CITALOPRAM HYDROBROMIDE 20 MG TABLET NG SCH (10:00)
[2017-08-13] MEDS ORDERED: CLOPIDOGREL BISULFATE 75 MG TABLET NG SCH (10:00)
== END 2017-08-12 19:30 | disposition short-term general hospital (02) | DRG 871 ==
LOC: ER 12:43 → EH 15:26 → 3N 18:40 → ICU 08-12 10:55
PROVIDERS: ADMIT Emergency Medicine; ATTEND Emergency Medicine
PROC: 3E0F73Z Introduction of Anti-inflammatory into Respiratory Tract, Via Natural or Artificial Opening (ICD-10-PCS; 2017-08-08)
PROC: 5A1935Z Respiratory Ventilation, Less than 24 Consecutive Hours (ICD-10-PCS; principal; 2017-08-12)
PROC: 0BH17EZ Insertion of Endotracheal Airway into Trachea, Via Natural or Artificial Opening (ICD-10-PCS; 2017-08-12)
PROC: 5A09357 Assistance with Respiratory Ventilation, Less than 24 Consecutive Hours, Continuous Positive Airway Pressure (ICD-10-PCS; 2017-08-12)
DX: A41.9 Sepsis, unspecified organism (principal); J15.212 Pneumonia due to Methicillin resistant Staphylococcus aureus; I21.4 Non-ST elevation (NSTEMI) myocardial infarction; N17.0 Acute kidney failure with tubular necrosis; J96.01 Acute respiratory failure with hypoxia; I50.41 Acute combined systolic (congestive) and diastolic (congestive) heart failure; G93.41 Metabolic encephalopathy; J69.0 Pneumonitis due to inhalation of food and vomit; I13.0 Hypertensive heart and chronic kidney disease with heart failure and stage 1 through stage 4 chronic kidney disease, or unspecified chronic kidney disease; F10.239 Alcohol dependence with withdrawal, unspecified; L89.301 Pressure ulcer of unspecified buttock, stage 1; E11.22 Type 2 diabetes mellitus with diabetic chronic kidney disease; Z66 Do not resuscitate; N18.3 Chronic kidney disease, stage 3 (moderate); R13.10 Dysphagia, unspecified; R00.0 Tachycardia, unspecified; I16.0 Hypertensive urgency; D63.1 Anemia in chronic kidney disease; L89.611 Pressure ulcer of right heel, stage 1; I25.10 Atherosclerotic heart disease of native coronary artery without angina pectoris; E78.00 Pure hypercholesterolemia, unspecified; M19.90 Unspecified osteoarthritis, unspecified site; F32.9 Major depressive disorder, single episode, unspecified; K21.9 Gastro-esophageal reflux disease without esophagitis; I69.391 Dysphagia following cerebral infarction; I69.920 Aphasia following unspecified cerebrovascular disease; Z78.1 Physical restraint status; Z92.3 Personal history of irradiation; Z79.891 Long term (current) use of opiate analgesic; Z79.899 Other long term (current) drug therapy; Z88.6 Allergy status to analgesic agent; Z88.2 Allergy status to sulfonamides; Z88.8 Allergy status to other drugs, medicaments and biological substances; Z95.1 Presence of aortocoronary bypass graft; Z85.89 Personal history of malignant neoplasm of other organs and systems; Z87.891 Personal history of nicotine dependence; Z83.3 Family history of diabetes mellitus; Z82.49 Family history of ischemic heart disease and other diseases of the circulatory system
CPT/HCPCS: 31500; 36415; 36600; 71045; 71046; 80048; 80053; 82140; 82550; 82553; 82803; 82962; 83605; 83735; 83880; 84484; 85025; 85027; 85610; 85730; 86850; 86900; 86901; 87040; 87070; 87077; 87086; 87186; 87205; 93005; 93010; 93306; 94002; 94640; 94660; 96360; 99291; C1751; G8978-GP; G8979-GP; G8987-GO; G8988-GO; J0330; J1630; J1650; J1815; J1940; J2060; J2185; J2250; J2543; J2704; J3370; J3480; J3490; J7030; J7060; J7620; S0028

== ENCOUNTER 2018-02-15 21:45 | Emergency (ER) | payer MEDICARE ==
[2018-02-15 21:52] VITALS: BP 104/60
--- NOTE | 2018-02-15 22:20 | ER Document Report ---
ED Medical Screen (RME) - General Chief Complaint: Altered Mental Status Stated Complaint: AMS Time Seen by Provider: 02/15/18 22:16 Mode of Arrival: Wheelchair Information source: Patient, Relative - [id number] Notes: 67-year-old male presents to ED for complaint of back pain and fall earlier due to dizziness landing on his back and head. At this time he states he does not have any back pain. [id number] states that when he fell they tested his sugar and it was 73 so they gave him some Pepsi. He states he drank a little bit of that. States she is also treated him with morphine and nitro. He states he has CHF and end-stage as well as throat cancer. He states that he is on hospice but they were not able to get ahold to hospice. He states he thinks he is going into heart failure again and he is out of oxygen at home which he needs for his heart failure. They brought him to the hospital to be evaluated. I have greeted and performed a rapid initial assessment of this patient. A comprehensive ED assessment and evaluation of the patient, analysis of test results and completion of medical decision making process will be conducted by an additional ED providers. TRAVEL OUTSIDE OF THE [place] IN LAST 30 DAYS: No - Related Data Allergies/Adverse Reactions: Sulfa (Sulfonamide Antibiotics) Allergy (Intermediate, Verified 06/18/17 06:21) COLD SORES IN MOUTH codeine phosphate [From Tylenol-Codeine] Allergy (Verified 06/18/17 06:21) Hives zolpidem tartrate [From Ambien] Adverse Reaction (Verified 06/18/17 06:21) Hallucinations Past Medical History - Past Medical History Cardiac Medical History: Reports: Hx Coronary Artery Disease, Hx Heart Attack, Hx Hypercholesterolemia, Hx Hypertension Pulmonary Medical History: Reports: Hx Pneumonia - Aspiration pneumonia Denies: Hx Asthma, Hx Bronchitis, Hx COPD Neurological Medical History: Reports: Hx Cerebrovascular Accident - left sided weakness, Hx Seizures - last sz about 5 years ago,off medication about 1-2 years ago. Endocrine Medical History: Reports: Hx Diabetes Mellitus Type 2 Renal/ Medical History: Reports: Hx Renal Insufficiency. Denies: Hx Peritoneal Dialysis GI Medical History: Reports: Hx Gastroesophageal Reflux Disease Musculoskeltal Medical History: Reports Hx Arthritis Psychiatric Medical History: Reports: Hx Depression Past Surgical History: Reports: Hx Cardiac Catheterization, Hx Cardiac Surgery - 2 bypass, Hx Coronary Artery Bypass Graft - x2, Hx Orthopedic Surgery - Back, bilat feet - Immunizations Hx Diphtheria, Pertussis, Tetanus Vaccination: Yes History of Influenza Vaccine for 03/2017 - 07/2017 Season: Yes Physical Exam - Vital signs Vitals: Temp Pulse Resp BP Pulse Ox 98.2 F 69 21 H 104/60 92 02/15/18 21:47 02/15/18 21:47 02/15/18 21:47 02/15/18 21:47 02/15/18 21:47 Course - Vital Signs Vital signs: Temp Pulse Resp BP Pulse Ox 98.2 F 69 21 H 104/60 92 02/15/18 21:47 02/15/18 21:47 02/15/18 21:47 02/15/18 21:47 02/15/18 21:47 Doctor's Discharge - Discharge Referrals: NEVAEH CHAVEZ PA-C [Primary Care Provider] - Follow up as needed
[2018-02-16 00:08] LABS: ABSOLUTE BASOPHILS # (AUTO) 0.1 10^3/uL (0.0-0.2); ABSOLUTE EOSINOPHILS # (AUTO) 1.1 10^3/uL (0.0-0.6); ABSOLUTE LYMPHOCYTES (AUTO) 1.5 10^3/uL (0.5-4.7); ABSOLUTE NEUT (AUTO) 8.8 10^3/uL (1.7-8.2); BASOPHILS % (AUTO) 0.7 % (0-2); EOSINOPHILS % (AUTO) 8.7 % (0-6); HEMATOCRIT 37.8 % (37.9-51.0); HEMOGLOBIN 12.4 g/dL (13.5-17.0); LYMPHOCYTES % (AUTO) 12.2 % (13-45); MEAN CORPUSCULAR HEMOGLOBIN 27.5 pg (27.0-33.4); MEAN CORPUSCULAR HGB CONC 32.8 g/dL (32.0-36.0); MEAN CORPUSCULAR VOLUME 84 fl (80-97); MONOCYTES % (AUTO) 8.1 % (3-13); PLATELET COUNT 297 10^3/uL (150-450); RED CELL DISTRIBUTION WIDTH 15.2 % (11.5-14.0); SEGMENTED NEUTROPHILS % (AUTO) 70.3 % (42-78); TOTAL CELLS COUNTED % (AUTO) 100 %; WHITE BLOOD COUNT 12.5 10^3/uL (4.0-10.5)
--- NOTE | 2018-02-16 07:46 | RADIOLOGY REPORT (SQ) ---
Chest 2 view on 02/16/2018 at 12:22 AM CLINICAL INDICATION: Back pain after fall COMPARISON: 08/12/2017 FINDINGS: The patient is status post median sternotomy and probable CABG. There is elevation of the right hemidiaphragm. There is persistent right upper lobe opacity in an area of prior pneumonia likely residual scarring from prior infectious etiology. Lungs are otherwise clear. Cardiac, hilar and mediastinal contours are within normal limits. Pulmonary vascularity is within normal limits. IMPRESSION: Persistent opacity in the right upper lobe likely scarring at site of prior infection but if clinically indicated chest CT could better evaluate. Otherwise no acute disease.
--- NOTE | 2018-02-16 08:39 | RADIOLOGY REPORT (SQ) ---
EXAM DESCRIPTION: CT HEAD WITHOUT COMPLETED DATE/TIME: 02/16/2018 12:15 am REASON FOR STUDY: fell landing on back and head COMPARISON: 06/18/2017 TECHNIQUE: Axial images acquired through the brain without intravenous contrast. Images reviewed wi th bone, brain and subdural windows. Additional sagittal and coronal reconstructions were generated. Images stored on PACS. All CT scanners at this facility use dose modulation, iterative reconstruction, and/or weight based d osing when appropriate to reduce radiation dose to as low as reasonably achievable (ALARA). [facility]: Dose Right [facility]: CareDose [facility]: Dose Right [facility]: Teradose 4D [facility]: IFTTT RADIATION DOSE: mGy. LIMITATIONS: None. FINDINGS: VENTRICLES: Prominent. CEREBRUM: No masses. No hemorrhage. No midline shift. Areas of low density in the white matter mos t likely due to chronic micro-vascular ischemic change. No evidence for acute infarction. CEREBELLUM: No masses. No hemorrhage. No alteration of density. No evidence for acute infarction. EXTRAAXIAL SPACES: Age-related involutional change. No fluid collections. No masses. ORBITS AND GLOBE: No intra- or extraconal masses. Normal contour of globe without masses. CALVARIUM: No fracture. PARANASAL SINUSES: No fluid or mucosal thickening. SOFT TISSUES: No mass or hematoma. OTHER: No other significant finding. IMPRESSION: CHRONIC CHANGES OF ATROPHY AND MICROVASCULAR ISCHEMIA. NO ACUTE PROCESS. EVIDENCE OF ACUTE STROKE: NO. COMMENT: Preliminary report faxed to ED at 2356 hours. TECHNICAL DOCUMENTATION: JOB ID: [id number] Quality ID # [id number]: Final reports with documentation of one or more dose reduction techniques (e.g., Au tomated exposure control, adjustment of the mA and/or kV according to patient size, use of iterative reconstruction technique) 2010 [employer]- All Rights Reserved Reading location - IP/workstation name: [email or web address]
== END 2018-02-16 01:48 | disposition left against medical advice (07) ==
LOC: ER 21:45
DX: R41.82 Altered mental status, unspecified (principal); Z88.2 Allergy status to sulfonamides; Z88.8 Allergy status to other drugs, medicaments and biological substances; I25.10 Atherosclerotic heart disease of native coronary artery without angina pectoris; I25.2 Old myocardial infarction; I10 Essential (primary) hypertension; E78.00 Pure hypercholesterolemia, unspecified; I69.954 Hemiplegia and hemiparesis following unspecified cerebrovascular disease affecting left non-dominant side; K21.9 Gastro-esophageal reflux disease without esophagitis; M19.90 Unspecified osteoarthritis, unspecified site; F32.9 Major depressive disorder, single episode, unspecified; Z95.1 Presence of aortocoronary bypass graft
CPT/HCPCS: 36415; 70450; 71046; 85025; 99281